=== PATIENT | female | born 1940 | race Caucasian/White ===

== ENCOUNTER 2016-10-23 | Outpatient (CLI) | payer MEDICARE, OTHER | END 2016-10-23 11:21 | disposition home or self-care (01) | DX: I48.91 Unspecified atrial fibrillation (principal) ==

== ENCOUNTER 2016-11-13 11:02 | Outpatient (CLI) | payer MEDICARE, OTHER | END 2016-11-13 11:03 | disposition home or self-care (01) | DX: I67.82 Cerebral ischemia (principal); G31.89 Other specified degenerative diseases of nervous system; R51 Headache ==

== ENCOUNTER 2016-11-14 09:52 | Outpatient (CLI) | payer MEDICARE, OTHER | END 2016-11-14 09:53 | disposition home or self-care (01) | DX: I48.91 Unspecified atrial fibrillation (principal) ==

== ENCOUNTER 2016-11-19 12:39 | Outpatient (CLI) | payer MEDICARE, OTHER | END 2016-11-19 12:40 | disposition home or self-care (01) | DX: M43.17 Spondylolisthesis, lumbosacral region (principal); M47.9 Spondylosis, unspecified ==

== ENCOUNTER 2016-12-02 14:55 | Outpatient (CLI) | payer MEDICARE, OTHER | END 2016-12-02 14:56 | disposition home or self-care (01) | DX: I48.91 Unspecified atrial fibrillation (principal) ==

== ENCOUNTER 2016-12-03 13:14 | Outpatient (CLI) | payer MEDICARE, OTHER | END 2016-12-03 13:15 | disposition home or self-care (01) | DX: R06.00 Dyspnea, unspecified (principal) ==

== ENCOUNTER 2017-01-12 10:47 | Outpatient (CLI) | payer MEDICARE, OTHER | END 2017-01-12 10:48 | disposition home or self-care (01) | DX: I48.91 Unspecified atrial fibrillation (principal) ==

== ENCOUNTER 2017-01-13 14:45 | Outpatient (CLI) | payer MEDICARE, OTHER | END 2017-01-13 14:46 | disposition home or self-care (01) | DX: R06.02 Shortness of breath (principal); R05 Cough; Z87.891 Personal history of nicotine dependence; Z01.818 Encounter for other preprocedural examination ==

== ENCOUNTER 2017-02-19 08:51 | Outpatient (CLI) | payer MEDICARE, OTHER | END 2017-02-19 08:52 | disposition home or self-care (01) | LOC: LAB.F 08:51 | PROVIDERS: ATTEND Family Medicine | DX: I48.91 Unspecified atrial fibrillation (principal) | CPT/HCPCS: 85610 ==

== ENCOUNTER 2017-03-11 09:37 | Outpatient (CLI) | payer MEDICARE, OTHER | END 2017-03-11 09:38 | disposition home or self-care (01) | LOC: LAB.F 09:37 | PROVIDERS: ATTEND Family Medicine | DX: I48.91 Unspecified atrial fibrillation (principal) | CPT/HCPCS: 85610 ==

== ENCOUNTER 2017-03-23 11:36 | Outpatient (CLI) | payer MEDICARE, OTHER ==
--- NOTE | 2017-03-23 13:16 | XRAY Report ---
THREE VIEW LUMBAR SPINE: 03/23/2017 CLINICAL INDICATION: Status post fusion, spondylolisthesis. COMPARISON: 11/19/2016. FINDINGS: AP, lateral, and coned down views of the lumbar spine demonstrate interval posterior jhon a nd pedicle screw fusion spanning from L4 to the iliac wings. Degenerative disk and facet disease appe ars stable. Anterolisthesis of L5 on S1 appears unchanged. Diskectomy changes are seen at L4-5 and L5 -S1. IMPRESSION: INTERVAL POSTERIOR JHON AND PEDICLE SCREW FUSION, WITH DISKECTOMY CHANGES. STABLE ALIGNME NT. JOB #: [id number] EXT JOB #:[id number]
== END 2017-03-23 11:37 | disposition home or self-care (01) ==
LOC: DI 11:36
PROVIDERS: ATTEND Student in an Organized Health Care Education/Training Program
DX: M51.36 Other intervertebral disc degeneration, lumbar region (principal); M47.896 Other spondylosis, lumbar region; M43.16 Spondylolisthesis, lumbar region; Z98.1 Arthrodesis status
CPT/HCPCS: 72100; 85610

== ENCOUNTER 2017-03-23 13:25 | Outpatient (CLI) | payer MEDICARE, OTHER | END 2017-03-23 13:26 | disposition home or self-care (01) | LOC: LAB.F 13:25 | PROVIDERS: ATTEND Family Medicine | DX: I48.91 Unspecified atrial fibrillation (principal) | CPT/HCPCS: 85610 ==

== ENCOUNTER 2017-04-24 12:40 | Outpatient (CLI) | payer MEDICARE, OTHER | END 2017-04-24 12:41 | disposition home or self-care (01) | LOC: LAB.F 12:40 | PROVIDERS: ATTEND Family Medicine | DX: I48.91 Unspecified atrial fibrillation (principal) | CPT/HCPCS: 85610 ==

== ENCOUNTER 2017-04-30 10:47 | Outpatient (CLI) | payer MEDICARE, OTHER ==
[2017-04-30 11:22] LABS: CREATININE 0.9 mg/dL (0.4-1.0)
[2017-04-30] MEDS ORDERED: IOPAMIDOL-300 100 ML VIAL IVP ONE (12:55)
--- NOTE | 2017-05-01 10:52 | CT Report ---
CHEST CT: 04/30/2017 CLINICAL HISTORY: A 76-year-old female with a recent abnormal chest x-ray. TECHNIQUE: Patient received 80 mL of Isovue-300 as contrast agent. A CAT scan of the chest was done at 5 x 5 mm intervals in axial, coronal, and sagittal reconstruction images. In accordance with CT protocol optimization, one or more of the following dose reduction techniques w ere utilized for this exam: automated exposure control, adjustment of mA and/or KV based on patient size, or use of iterative reconstructive technique. FINDINGS: Mediastinum shows a few small benign-appearing lymph nodes in the right paratracheal and a nterior carinal region. These each measure 7 mm or less in diameter. Normal cardiac size is seen with extensive mitral valve calcification. There is calcification noted in the left coronary artery, left anterior descending coronary artery, and right coronary artery. Axillary regions appear normal. Lungs demonstrate equivocal findings in regard to three small nodules in the right lung. There is a 0.5 cm potential nodule in the anterior segment of the right upper lobe. There are two potential add itional nodules in the lateral aspect of the lateral segment of the right middle lobe lying adjacent to one another and measuring 1.1 cm and 0.7 cm. Recommend patient be carefully followed with a repea t chest CT in six months to determine if any of these truly represent nodules. Adrenal glands appear normal. No abnormality is seen in the upper portion of the abdomen that is vis ualized. There are some surgical clips in the adelita hepatis related to a prior cholecystectomy. IMPRESSION: EQUIVOCAL FINDINGS ARE NOTED IN REGARD TO THREE SMALL NODULES IN THE RIGHT LUNG VARYING IN SIZE FROM 0.5 CM TO 1.1 CM. RECOMMEND PATIENT BE FOLLOWED WITH A REPEAT NONCONTRAST CHEST CT IN S IX MONTHS FOR FURTHER EVALUATION. JOB #: [id number] EXT JOB #:[id number]
== END 2017-04-30 10:48 | disposition home or self-care (01) ==
LOC: LAB 10:47
PROVIDERS: ATTEND Physician Assistant
DX: R91.8 Other nonspecific abnormal finding of lung field (principal)
CPT/HCPCS: 36415; 71260; 82565; Q9967

== ENCOUNTER 2017-05-19 12:59 | Outpatient (CLI) | payer MEDICARE, OTHER | END 2017-05-19 13:00 | disposition home or self-care (01) | LOC: LAB.F 12:59 | PROVIDERS: ATTEND Family Medicine | DX: I48.91 Unspecified atrial fibrillation (principal) | CPT/HCPCS: 85610 ==

== ENCOUNTER 2017-06-30 11:11 | Outpatient (CLI) | payer MEDICARE, OTHER | END 2017-06-30 11:12 | disposition home or self-care (01) | LOC: LAB 11:11 | PROVIDERS: ATTEND Family Medicine | DX: I48.91 Unspecified atrial fibrillation (principal) | CPT/HCPCS: 85610 ==

== ENCOUNTER 2017-06-30 11:26 | Outpatient (CLI) | payer MEDICARE, OTHER ==
--- NOTE | 2017-06-30 17:51 | XRAY Report ---
PELVIS AND LEFT HIP: 06/30/2017 HISTORY: Pain. COMPARISON: 02/21/2016 FINDINGS: Right total hip replacement. Status post lower lumbar and bilateral sacroiliac joint fusi on. Degenerative change in the left hip with joint space narrowing, subchondral sclerosis and cyst f ormation and minor spurring. No evidence of fracture, malalignment, or bone destruction. IMPRESSION: MODERATE LEFT HIP DEGENERATIVE CHANGE. STATUS POST RIGHT TOTAL HIP ARTHROPLASTY AND LOW ER LUMBAR FUSION. JOB #: [id number] EXT JOB #:[id number]
== END 2017-06-30 11:27 | disposition home or self-care (01) ==
LOC: DI 11:26
PROVIDERS: ATTEND Physician Assistant
DX: M25.552 Pain in left hip (principal); I48.91 Unspecified atrial fibrillation; Z96.641 Presence of right artificial hip joint; Z98.1 Arthrodesis status
CPT/HCPCS: 85610

== ENCOUNTER 2017-08-07 10:44 | Outpatient (CLI) | payer MEDICARE, OTHER | END 2017-08-07 10:45 | disposition home or self-care (01) | LOC: LAB.F 10:44 | PROVIDERS: ATTEND Family Medicine | DX: I48.91 Unspecified atrial fibrillation (principal) | CPT/HCPCS: 85610 ==

== ENCOUNTER 2017-08-20 09:17 | Outpatient (CLI) | payer MEDICARE, OTHER | END 2017-08-20 09:18 | disposition home or self-care (01) | LOC: RT 09:17 | PROVIDERS: ATTEND Internal Medicine Cardiovascular Disease | DX: I48.91 Unspecified atrial fibrillation (principal) | CPT/HCPCS: 93005 ==

== ENCOUNTER 2017-08-31 12:23 | Outpatient (CLI) | payer MEDICARE, OTHER ==
--- NOTE | 2017-09-01 12:27 | Mammography Report ---
DIGITAL SCREENING MAMMOGRAM: 08/31/2017 CLINICAL INDICATION: A 76-year-old for screening. COMPARISON: Films from [place], [place] dated 10/18/2013, 04/01/2012. TECHNIQUE: Routine CC and MLO projections were obtained of the breasts. FINDINGS: The breasts demonstrate scattered fibroglandular densities bilaterally. Intramammary lymp h nodes are stable. Coarse, typically benign calcifications are present. No suspicious masses, clus tered microcalcifications, or regions of architectural distortion are identified. IMPRESSION: BENIGN FINDINGS. RECOMMENDATION: Routine annual screening unless otherwise clinically indicated. BIRADS CATEGORY 2 - BENIGN FINDINGS. STANDARD QUALIFYING STATEMENTS 1. This examination was reviewed with the aid of Computer-Aided Detection (CAD). 2. A negative or benign imaging report should not delay biopsy if clinically suspicious findings are present. Consider surgical consultation if warranted. More than 5% of cancers are not identified by i maging. 3. Dense breasts may obscure an underlying neoplasm. JOB #: [id number] EXT JOB #:[id number]
== END 2017-08-31 12:24 | disposition home or self-care (01) ==
LOC: DI 12:23
PROVIDERS: ATTEND Physician Assistant
DX: Z12.31 Encounter for screening mammogram for malignant neoplasm of breast (principal)
CPT/HCPCS: 77067

== ENCOUNTER 2017-09-15 13:12 | Outpatient (CLI) | payer MEDICARE, OTHER | END 2017-09-15 13:13 | disposition home or self-care (01) | LOC: LAB.F 13:12 | PROVIDERS: ATTEND Family Medicine | DX: I48.91 Unspecified atrial fibrillation (principal) | CPT/HCPCS: 85610 ==

== ENCOUNTER 2017-09-30 14:13 | Outpatient (CLI) | payer MEDICARE, OTHER | END 2017-09-30 14:14 | disposition home or self-care (01) | LOC: LAB.F 14:13 | PROVIDERS: ATTEND Family Medicine | DX: I48.91 Unspecified atrial fibrillation (principal) | CPT/HCPCS: 85610 ==

== ENCOUNTER 2017-10-28 11:59 | Outpatient (CLI) | payer MEDICARE, OTHER ==
[2017-10-28 12:09] LABS: CREATININE 0.8 mg/dL (0.4-1.0)
--- NOTE | 2017-10-28 17:29 | CT Report ---
DATE OF SERVICE: 10/28/2017 CT CHEST WITHOUT CONTRAST: 10/28/2016 CLINICAL INDICATION: Followup right lung nodules. COMPARISON: 04/30/2017. TECHNIQUE: Axial CT images of the chest were obtained without intravenous contrast FINDINGS: The heart and great vessels again demonstrate atherosclerotic calcifications. No hilar or mediastinal lymphadenopathy is present. The previously noted nodules in the lateral right upper lobe are stable, with the largest measuring 10 mm maximal diameter. The left lung remains clear. No effusion or pneumothorax is present. Osseous structures demonstrate degenerative changes. Limited evaluation of upper abdominal structures demonstrates normal adrenal glands. IMPRESSION: STABLE RIGHT LUNG NODULES. CONSIDER EITHER A PET/CT TO EVALUATE FOR METABOLIC ACTIVITY, OR FOLLOWUP IN SIX MONTHS TO EVALUATE FOR INTERVAL CHANGE. In accordance with CT protocol optimization, one or more of the following dose reduction techniques were utilized for this exam: automated exposure control, adjustment of mA and/or KV based on patient size, or use of iterative reconstructive technique. TD: 10/28/2017 18:28
== END 2017-10-28 12:00 | disposition home or self-care (01) ==
LOC: DI 11:59
PROVIDERS: ATTEND Physician Assistant
DX: R91.8 Other nonspecific abnormal finding of lung field (principal); I48.91 Unspecified atrial fibrillation
CPT/HCPCS: 36415; 71250; 82565; 85610

== ENCOUNTER 2017-11-09 08:40 | Outpatient (CLI) | payer MEDICARE, OTHER ==
--- NOTE | 2017-11-09 16:10 | CT Report ---
DATE OF SERVICE: 11/09/2017 CT OF THE LUMBAR SPINE WITHOUT CONTRAST: 11/09/2017 CLINICAL INDICATION: Low back pain. COMPARISON: 02/21/2016 TECHNIQUE: Axial CT images of the lumbar spine were obtained without intravenous contrast. Sagittal and coronal reconstructions were performed. FINDINGS: There has been interval posterior bushra and pedicle screw fusion spanning from L4 through the sacroiliac joints bilaterally. Disk spacers are noted at L4-L5 and L5-S1. Anterolisthesis of L5 on S1 is stable. There is no evidence of interval fracture. No hardware complication is identified. The L1-L2, L2-L3, and L3-L4 disks demonstrate mild broad-based bulges, without significant spinal or foraminal narrowing. Postoperative changes are seen at L4-L5 and L5-S1. Screws also fuse the sacroiliac joints bilaterally. The visualized pelvic structures are unremarkable. IMPRESSION: POSTOPERATIVE CHANGES OF LOWER LUMBOSACRAL FUSION. STABLE ALIGNMENT. NO EVIDENCE OF INTERVAL FRACTURE OR HARDWARE COMPLICATION. TD: 11/09/2017 17:09 [facility]
== END 2017-11-09 08:41 | disposition home or self-care (01) ==
LOC: DI 08:40
PROVIDERS: ATTEND Student in an Organized Health Care Education/Training Program
DX: M54.40 Lumbago with sciatica, unspecified side (principal); Z98.1 Arthrodesis status
CPT/HCPCS: 72131

== ENCOUNTER 2017-11-30 12:49 | Outpatient (CLI) | payer MEDICARE, OTHER | END 2017-11-30 12:50 | disposition home or self-care (01) | LOC: LAB.F 12:49 | PROVIDERS: ATTEND Family Medicine | DX: I48.91 Unspecified atrial fibrillation (principal) | CPT/HCPCS: 85610 ==

== ENCOUNTER 2017-12-30 08:00 | Outpatient (CLI) | payer MEDICARE, OTHER | END 2017-12-30 08:01 | LOC: LAB.F 08:00 | PROVIDERS: ATTEND Family Medicine | DX: I48.91 Unspecified atrial fibrillation (principal) | CPT/HCPCS: 85610 ==

== ENCOUNTER 2018-01-13 13:29 | Outpatient (CLI) | payer MEDICARE, OTHER | END 2018-01-13 13:30 | disposition home or self-care (01) | LOC: LAB.F 13:29 | PROVIDERS: ATTEND Family Medicine | DX: I48.91 Unspecified atrial fibrillation (principal) | CPT/HCPCS: 85610 ==

== ENCOUNTER 2018-01-19 10:44 | Outpatient (CLI) | payer MEDICARE, OTHER | END 2018-01-19 10:45 | disposition home or self-care (01) | LOC: LAB.F 10:44 | PROVIDERS: ATTEND Family Medicine | DX: I48.91 Unspecified atrial fibrillation (principal) | CPT/HCPCS: 85610 ==

== ENCOUNTER 2018-01-25 13:02 | Outpatient (CLI) | payer MEDICARE, OTHER | END 2018-01-25 13:03 | disposition home or self-care (01) | LOC: LAB.F 13:02 | PROVIDERS: ATTEND Family Medicine | DX: I48.91 Unspecified atrial fibrillation (principal) | CPT/HCPCS: 85610 ==

== ENCOUNTER 2018-02-04 14:16 | Outpatient (CLI) | payer MEDICARE, OTHER | END 2018-02-04 14:17 | disposition home or self-care (01) | LOC: LAB.F 14:16 | PROVIDERS: ATTEND Family Medicine | DX: I48.91 Unspecified atrial fibrillation (principal) | CPT/HCPCS: 85610 ==

== ENCOUNTER 2018-02-17 13:27 | Outpatient (CLI) | payer MEDICARE, OTHER | END 2018-02-17 13:28 | disposition home or self-care (01) | LOC: LAB.F 13:27 | PROVIDERS: ATTEND Family Medicine | DX: I48.91 Unspecified atrial fibrillation (principal) | CPT/HCPCS: 85610 ==

== ENCOUNTER 2018-02-26 09:13 | Outpatient (CLI) | payer MEDICARE, OTHER | END 2018-02-26 09:14 | disposition home or self-care (01) | LOC: LAB.F 09:13 | PROVIDERS: ATTEND Family Medicine | DX: I48.91 Unspecified atrial fibrillation (principal) | CPT/HCPCS: 85610 ==

== ENCOUNTER 2018-03-10 13:11 | Outpatient (CLI) | payer MEDICARE, OTHER | END 2018-03-10 13:12 | disposition home or self-care (01) | LOC: LAB.F 13:11 | PROVIDERS: ATTEND Family Medicine | DX: I48.91 Unspecified atrial fibrillation (principal) | CPT/HCPCS: 85610 ==

== ENCOUNTER 2018-03-24 11:06 | Outpatient (CLI) | payer MEDICARE, OTHER | END 2018-03-24 11:07 | disposition home or self-care (01) | LOC: LAB.F 11:06 | PROVIDERS: ATTEND Family Medicine | DX: I48.91 Unspecified atrial fibrillation (principal) | CPT/HCPCS: 85610 ==

== ENCOUNTER 2018-03-25 13:39 | Outpatient (CLI) | payer MEDICARE, OTHER | END 2018-03-25 13:40 | disposition home or self-care (01) | LOC: RT 13:39 | PROVIDERS: ATTEND Internal Medicine Cardiovascular Disease | DX: I48.0 Paroxysmal atrial fibrillation (principal) | CPT/HCPCS: 93005 ==

== ENCOUNTER 2018-04-21 11:29 | Outpatient (CLI) | payer MEDICARE, OTHER | END 2018-04-21 11:30 | disposition home or self-care (01) | LOC: LAB.F 11:29 | PROVIDERS: ATTEND Family Medicine | DX: I48.91 Unspecified atrial fibrillation (principal) | CPT/HCPCS: 85610 ==

== ENCOUNTER 2018-04-22 11:24 | Outpatient (CLI) | payer MEDICARE, OTHER ==
--- NOTE | 2018-04-22 15:24 | CT Report ---
Procedure Date: 04/22/2018 Accession Number: [id number] / [id number] Procedure: CT - Chest W/O CPT Code: FULL RESULT: EXAM: Chest W/O DATE: 04/22/2018 11:37 AM CLINICAL HISTORY: ABNORMAL CHEST CT, PULMONARY NODULES COMPARISON: CT of the chest 10/28/2017. TECHNIQUE: Routine helical CT imaging was performed through the chest. IV contrast: None. Reconstructions: Coronal and sagittal. In accordance with CT protocol optimization, one or more of the following dose reduction techniques were utilized for this exam: automated exposure control, adjustment of mA and/or KV based on patient size, or use of iterative reconstructive technique. FINDINGS: Lungs/Pleura: The index nodule in the right upper lobe has increased to 1.5 cm (previously 1 cm in October 2017) on image 27. Left lung remains clear. There is no pleural effusion or pneumothorax. Mediastinum: Normal. No adenopathy or masses. Stable right atrial calcification, possibly prior thrombus. Coronary artery and great vessel calcifications. Bones: Unremarkable. Visualized Abdomen: Status post cholecystectomy, otherwise unremarkable. Other: None. IMPRESSION: Interval enlargement of the right lung nodule to 1.5 cm. Tissue diagnosis by image guided biopsy versus PET CT examination are recommended. RADIA
== END 2018-04-22 11:25 | disposition home or self-care (01) ==
LOC: DI 11:24
PROVIDERS: ATTEND Physician Assistant
DX: R91.1 Solitary pulmonary nodule (principal); R93.8 Abnormal findings on diagnostic imaging of other specified body structures; J98.4 Other disorders of lung
CPT/HCPCS: 71250

== ENCOUNTER 2018-05-19 11:14 | Outpatient (CLI) | payer MEDICARE, OTHER | END 2018-05-19 11:15 | disposition home or self-care (01) | LOC: LAB.F 11:14 | PROVIDERS: ATTEND Family Medicine | DX: I48.91 Unspecified atrial fibrillation (principal) | CPT/HCPCS: 85610 ==

== ENCOUNTER 2018-06-17 14:53 | Outpatient (CLI) | payer MEDICARE, OTHER | END 2018-06-17 14:54 | disposition home or self-care (01) | LOC: LAB.F 14:53 | PROVIDERS: ATTEND Family Medicine | DX: I48.91 Unspecified atrial fibrillation (principal) | CPT/HCPCS: 85610 ==

== ENCOUNTER 2018-07-21 11:10 | Outpatient (CLI) | payer MEDICARE, OTHER | END 2018-07-21 11:11 | disposition home or self-care (01) | LOC: LAB.F 11:10 | PROVIDERS: ATTEND Family Medicine | DX: I48.91 Unspecified atrial fibrillation (principal) | CPT/HCPCS: 85610 ==

== ENCOUNTER 2018-09-08 11:35 | Outpatient (CLI) | payer MEDICARE, OTHER ==
--- NOTE | 2018-09-08 14:52 | CT Report ---
Reason: PULMONARY NODULE Procedure Date: 09/08/2018 Accession Number: [id number] / [id number] Procedure: CT - Chest W/O CPT Code: FULL RESULT: EXAM: CT CHEST EXAM DATE: 09/08/2018 12:02 PM. CLINICAL HISTORY: PULMONARY NODULE. COMPARISONS: CHEST W/O 04/22/2018 11:34 AM. TECHNIQUE: Routine helical CT imaging was performed through the chest. IV contrast: None. Reconstructions: Coronal and sagittal. In accordance with CT protocol optimization, one or more of the following dose reduction techniques were utilized for this exam: automated exposure control, adjustment of mA and/or KV based on patient size, or use of iterative reconstructive technique. FINDINGS: Lungs/Pleura: The right upper lobe index nodule is now found on images 28 through 31 of series 3 and is essentially unchanged at 1.6 x 0.7 cm when measured coronally on image 32. No new suspicious nodules, bronchial thickening, consolidation, or edema. Pulmonary vasculature is normal. No pericardial or pleural effusion. No pneumothorax. Mediastinum: Calcification of the aortic arch, coronary arteries and mitral annular region. No adenopathy or masses. The heart and great vessels are otherwise normal. Bones: Unremarkable. Visualized Abdomen: Unremarkable. Other: None. IMPRESSION: The right upper lobe pulmonary nodule persists and remains suspicious, similar in appearance to April. The recommendation for tissue diagnosis stands. GIANLUCA The above findings of a persistent right lung suspicious lung nodule were discussed with Pati Kemp by Dr. Geronimo Mandujano at 14:50 hrs on 09/08/18.
== END 2018-09-08 11:36 | disposition home or self-care (01) ==
LOC: LAB 11:35 → DI 11:36
PROVIDERS: ATTEND Physician Assistant
DX: R91.1 Solitary pulmonary nodule (principal)
CPT/HCPCS: 71250

== ENCOUNTER 2018-09-09 14:34 | Outpatient (CLI) | payer MEDICARE, OTHER | END 2018-09-09 14:35 | disposition home or self-care (01) | LOC: LAB.F 14:34 | PROVIDERS: ATTEND Family Medicine | DX: I48.91 Unspecified atrial fibrillation (principal) | CPT/HCPCS: 85610 ==

== ENCOUNTER 2018-10-29 13:22 | Outpatient (CLI) | payer MEDICARE, OTHER | END 2018-10-29 13:23 | disposition home or self-care (01) | LOC: LAB.F 13:22 | PROVIDERS: ATTEND Family Medicine | DX: I48.91 Unspecified atrial fibrillation (principal) | CPT/HCPCS: 85610 ==

== ENCOUNTER 2018-11-05 13:15 | Outpatient (CLI) | payer MEDICARE, OTHER ==
[2018-11-05] MEDS ORDERED: REGADENOSON 0.4 MG/5 ML SYRINGE IVP ONE ×2 (15:11→16:28)
--- NOTE | 2018-11-05 16:14 | CARDIAC PROCEDURE NOTE ---
DATE OF SERVICE: 11/05/2018 Physician: Ileana Nation MD, [facility] INDICATIONS: Dyspnea on exertion. CARDIAC RISK FACTORS: Postmenopausal status, elevated cholesterol, obesity, family history of heart disease, remote ex-smoker (quit over 30 years ago). PROCEDURE: After signing informed consent, the patient underwent a Lexiscan pharmaceutical stress test with nuclear myocardial perfusion imaging. RESTING HEART RATE: 76. Peak heart rate: 92. Resting blood pressure 132/78. Peak blood pressure 128/84. The patient underwent Lexiscan infusion. She developed very brief flushing and brief, but significant shortness of breath; she asked to sit straight up, from a semi-reclining position. There was no chest pain. There was no wheezing. Oxygen saturation was 96% on room air during the test. RESTING EKG: Normal sinus rhythm, left atrial enlargement, early R/S transition. EKG AT [facility]: 0.[address] segment depression in leads I, II, V4 through V6. SUMMARY 1. Abnormal EKG at rest, suggesting cor pulmonale. 2. Borderline ischemic changes by EKG criteria on this pharmaceutical stress test. 3. Nuclear images reported separately. cc: Constantine Swann M.D. TD: 11/05/2018 16:03 [facility]
--- NOTE | 2018-11-08 08:09 | Nuclear Medicine Report ---
Reason: BRO Procedure Date: 11/05/2018 Accession Number: [id number] / [id number] Procedure: NM - Myocardial Perfusion STR/RST CPT Code: FULL RESULT: EXAM: SINGLE-ISOTOPE PHARMACOLOGICAL STRESS TEST WITH REGADENOSON. SINGLE-ISOTOPE AND ONE-DAY REST/STRESS MYOCARDIAL PERFUSION SCANS WITH TOMOGRAPHIC IMAGING, QUANTITATIVE ANALYSIS, WALL MOTION ANALYSIS AND CALCULATION OF EJECTION FRACTION. EXAM DATE: 11/05/2018 06:10 PM. CLINICAL HISTORY: Dyspnea on exertion. COMPARISON: None available. TECHNIQUE: After the intravenous administration of 9.5 mCi of Tc-99m sestamibi, a rest myocardial perfusion scan was done with tomography. Motion correction was applied when appropriate. After an appropriate delay, pharmacological stress was performed with the infusion of 0.4 mg regadenoson per protocol. According to protocol, 44 mCi of Tc-99m sestamibi was injected for stress myocardial perfusion scan. Motion correction was applied when appropriate. Gated tomographic images were obtained for wall motion analysis and computation of left ventricular ejection fraction. FINDINGS: There is a small mild reversible defect in the anterior apex. There is a small mild fixed defect in the proximal to mid inferolateral wall. Computer analysis. Summed stress score 7 Summed rest score 4 Summed difference score 3 Wall motion analysis demonstrates no focal wall motion abnormality. The left ventricular end-diastolic volume is 42 cc. The left ventricular end-systolic volume is 4 cc. The left ventricular ejection fraction is calculated to be 90%. IMPRESSION: 1. Small mild reversible defect in the anterior apex. Small mild fixed defect in the proximal to mid inferolateral wall. 2. Left ventricular ejection fraction of >65%. 3. Normal segmental and global wall motion. 4. Normal left ventricular cavity size, no change with stress. 5. Based on computer analysis, mildly abnormal study with mild ischemia. RADIA
== END 2018-11-05 13:16 | disposition home or self-care (01) ==
LOC: DI 13:15
PROVIDERS: ATTEND Internal Medicine Cardiovascular Disease
DX: I25.9 Chronic ischemic heart disease, unspecified (principal); R94.31 Abnormal electrocardiogram [ECG] [EKG]; E78.00 Pure hypercholesterolemia, unspecified; Z78.0 Asymptomatic menopausal state; E66.9 Obesity, unspecified; Z82.49 Family history of ischemic heart disease and other diseases of the circulatory system
CPT/HCPCS: 78452; 93017; A9500; J2785

== ENCOUNTER 2018-12-22 12:03 | Outpatient (CLI) | payer MEDICARE, OTHER | END 2018-12-22 23:59 | disposition home or self-care (01) | LOC: LAB.F 12:03 | PROVIDERS: ATTEND Family Medicine | DX: I48.91 Unspecified atrial fibrillation (principal) | CPT/HCPCS: 85610 ==

== ENCOUNTER 2019-01-06 11:47 | Outpatient (CLI) | payer MEDICARE, OTHER ==
--- NOTE | 2019-01-06 14:17 | CT Report ---
Reason: SOLITARY PULMONARY NODULE Procedure Date: 01/06/2019 Accession Number: [id number] / [id number] Procedure: CT - CHEST WO CPT Code: FULL RESULT: EXAM: CT CHEST EXAM DATE: 01/06/2019 12:12 PM. CLINICAL HISTORY: SOLITARY PULMONARY NODULE. COMPARISONS: CHEST W/O 09/08/2018 11:47 AM. TECHNIQUE: Routine helical CT imaging was performed through the chest. IV contrast: None. Reconstructions: Coronal and sagittal. In accordance with CT protocol optimization, one or more of the following dose reduction techniques were utilized for this exam: automated exposure control, adjustment of mA and/or KV based on patient size, or use of iterative reconstructive technique. FINDINGS: Lungs/Pleura: The known right upper lobe nodule is now seen on images 26 through 30 of series 4. Remeasuring the nodule coronally on similar fashion to the previous study, the nodule measures 1.9 x 1.0 cm on image 33 series 6. A few sub-3 mm nodules and tree-in-bud opacities have developed in the left lung apex in the interval, example image 17 series 4. This is more likely to represent an infectious or inflammatory process given appearance and timeframe. Mediastinum: Calcification of the aortic arch as well as severe coronary calcifications and calcification of the mitral annulus appears similar to prior. Mediastinal lymph nodes do not meet size criteria. A 1.1 cm cluster of right hilar nodes is prominent. Bones: Unremarkable. Visualized Abdomen: Prior cholecystectomy. Other: None. IMPRESSION: Persistence of the suspicious right lung nodule with measurements as described. Prominent right hilar nodes which individually do not meet size criteria. RADIA
== END 2019-01-06 11:48 | disposition home or self-care (01) ==
LOC: DI 11:47
PROVIDERS: ATTEND Physician Assistant
DX: R91.1 Solitary pulmonary nodule (principal)
CPT/HCPCS: 71250

== ENCOUNTER 2019-01-31 11:22 | Outpatient (CLI) | payer MEDICARE, OTHER | END 2019-01-31 11:23 | disposition home or self-care (01) | LOC: LAB.F 11:22 | PROVIDERS: ATTEND Family Medicine | DX: I48.91 Unspecified atrial fibrillation (principal) | CPT/HCPCS: 85610 ==

== ENCOUNTER 2019-02-25 13:00 | Outpatient (CLI) | payer MEDICARE, OTHER | END 2019-02-25 13:01 | disposition home or self-care (01) | LOC: LAB.F 13:00 | PROVIDERS: ATTEND Family Medicine | DX: I48.91 Unspecified atrial fibrillation (principal) | CPT/HCPCS: 85610 ==

== ENCOUNTER 2019-03-29 13:15 | Outpatient (CLI) | payer MEDICARE, OTHER | END 2019-03-29 13:16 | disposition home or self-care (01) | LOC: LAB.F 13:15 | PROVIDERS: ATTEND Family Medicine | DX: I48.91 Unspecified atrial fibrillation (principal) | CPT/HCPCS: 85610 ==

== ENCOUNTER 2019-05-10 12:57 | Outpatient (CLI) | payer MEDICARE, OTHER | END 2019-05-10 12:58 | disposition home or self-care (01) | LOC: LAB.S 12:57 | PROVIDERS: ATTEND Family Medicine | DX: I48.91 Unspecified atrial fibrillation (principal) | CPT/HCPCS: 85610 ==

== ENCOUNTER 2019-06-16 12:27 | Outpatient (CLI) | payer MEDICARE, OTHER | END 2019-06-16 12:28 | disposition home or self-care (01) | LOC: LAB.S 12:27 | PROVIDERS: ATTEND Family Medicine | DX: I48.91 Unspecified atrial fibrillation (principal) | CPT/HCPCS: 85610 ==

== ENCOUNTER 2019-08-04 14:06 | Outpatient (CLI) | payer MEDICARE, OTHER | END 2019-08-04 14:07 | disposition home or self-care (01) | LOC: LAB.S 14:06 | PROVIDERS: ATTEND Family Medicine | DX: I48.91 Unspecified atrial fibrillation (principal) | CPT/HCPCS: 85610 ==

== ENCOUNTER 2019-10-16 12:08 | Outpatient (CLI) | payer MEDICARE ==
[2019-10-16 13:08] LABS: BASOPHILS # (AUTO) 0.1 10^3/uL (0.0-0.1); BASOPHILS % (AUTO) 0.6 %; EOSINOPHILS # (AUTO) 0.2 10^3/uL (0.0-0.7); EOSINOPHILS % (AUTO) 1.4 %; HGB - HEMOGLOBIN 14.5 g/dL (12.0-16.0); LYMPHOCYTES # (AUTO) 2.3 10^3/uL (1.5-3.5); LYMPHOCYTES % (AUTO) 21.7 %; MEAN CORPUSCULAR HEMOGLOBIN 29.4 pg (27.0-31.0); MEAN CORPUSCULAR HGB CONC 32.4 g/dL (32.0-36.0); MEAN CORPUSCULAR VOLUME 90.7 fL (81.0-99.0); MEAN PLATELET VOLUME 9.9 fL (7.9-10.8); MONOCYTES # (AUTO) 0.7 10^3/uL (0.0-1.0); MONOCYTES % (AUTO) 6.4 %; NEUTROPHILS # (AUTO) 7.5 10^3/uL (1.5-6.6); NEUTROPHILS % (AUTO) 69.3 %; PLT - PLATELET COUNT 630 10^3/uL (130-450); RED BLOOD COUNT 4.93 10^6/uL (4.20-5.40); RED CELL DISTRIBUTION WIDTH 12.8 % (12.0-15.0); WHITE BLOOD COUNT 10.8 x10^3/uL (4.8-10.8)
[2019-10-16 13:26] LABS: ALBUMIN 3.5 g/dL (3.2-5.5); ALBUMIN/GLOBULIN RATIO 0.9 (1.0-2.2); BILIRUBIN,TOTAL 0.6 mg/dL (0.2-1.0); CALCIUM 9.3 mg/dL (8.5-10.3); CREATININE 0.9 mg/dL (0.4-1.0); CRP - C-REACTIVE PROTEIN 2.9 mg/dL (0-1.0); TOTAL PROTEIN 7.6 g/dL (6.7-8.2)
[2019-10-16 13:38] LABS: THYROID STIMULATING HORMONE 6.49 uIU/mL (0.34-5.60)
[2019-10-16 13:40] LABS: FREE T4 (FREE THYROXINE) 1.2 ng/dL (0.58-1.64)
--- NOTE | 2019-10-16 16:26 | XRAY Report ---
Reason: CHRONIC LBP Procedure Date: 10/16/2019 Accession Number: [id number] / [id number] Procedure: XR - Lumbar Spine Complete CPT Code: Final Report FULL RESULT: EXAM: LUMBOSACRAL SPINE RADIOGRAPHY EXAM DATE: 10/16/2019 12:45 PM. CLINICAL HISTORY: Chronic low back pain. COMPARISONS: LUMBAR SPINE 2 VIEW 03/23/2017 11:49 AM LUMBAR SPINE W/O 11/09/2017 8:53 AM. TECHNIQUE: 5 views. FINDINGS: Alignment: Anterolisthesis of L5 on S1 measures approximately 1.6 cm, similar compared to prior. Status post posterior fusion of L4 through the sacrum and across the sacroiliac joints and interbody fusion of L4-L5 and L5-S1. The hardware appears intact. Bones: Five [id number] lumbar vertebral bodies are present. The bones appear intact without evidence of a fracture. Disks: Mild intervertebral disk space narrowing at the levels not fused. Facets: No degenerative changes. Sacroiliac Joints: There are screws across the sacroiliac joints without complete bone fusion. Soft Tissues: Cholecystectomy clips are present. Atherosclerotic calcifications are present in the aorta. IMPRESSION: 1. There is grade 2 anterolisthesis of L5 on S1. Similar compared to prior with multilevel fusion of the lumbar spine to the sacrum. Hardware appears intact. 2. Mild degenerative disk disease at the levels not fused. RADIA
[2019-10-17 11:18] LABS: HEMOGLOBIN A1C 0.83 g/dL; HEMOGLOBIN A1C % 7.2 % (4.6-6.2)
== END 2019-10-16 12:09 | disposition home or self-care (01) ==
LOC: DI 12:08
PROVIDERS: ATTEND Physician Assistant
DX: M51.36 Other intervertebral disc degeneration, lumbar region (principal); M43.17 Spondylolisthesis, lumbosacral region; Z98.1 Arthrodesis status; M62.81 Muscle weakness (generalized); R73.9 Hyperglycemia, unspecified; E03.9 Hypothyroidism, unspecified; I10 Essential (primary) hypertension; R53.83 Other fatigue
CPT/HCPCS: 36415; 72110; 80053; 82550; 83036; 84439; 84443; 85025; 85651; 86140

== ENCOUNTER 2019-11-07 11:29 | Outpatient (CLI) | payer MEDICARE | END 2019-11-07 11:30 | disposition home or self-care (01) | LOC: LAB.S 11:29 | PROVIDERS: ATTEND Family Medicine | DX: I48.91 Unspecified atrial fibrillation (principal) | CPT/HCPCS: 85610 ==

== ENCOUNTER 2020-02-13 11:06 | Outpatient (CLI) | payer MEDICARE | END 2020-02-13 11:07 | disposition home or self-care (01) | LOC: LAB 11:06 | PROVIDERS: ATTEND Family Medicine | DX: I48.91 Unspecified atrial fibrillation (principal) | CPT/HCPCS: 85610 ==

== ENCOUNTER 2020-03-28 10:32 | Outpatient (CLI) | payer MEDICARE | END 2020-03-28 10:33 | disposition home or self-care (01) | LOC: LAB.S 10:32 | PROVIDERS: ATTEND Family Medicine | DX: I48.91 Unspecified atrial fibrillation (principal) | CPT/HCPCS: 85610 ==

== ENCOUNTER 2020-04-11 12:18 | Outpatient (CLI) | payer MEDICARE | END 2020-04-11 12:19 | disposition home or self-care (01) | LOC: LAB.S 12:18 | PROVIDERS: ATTEND Family Medicine | DX: I48.91 Unspecified atrial fibrillation (principal) | CPT/HCPCS: 85610 ==

== ENCOUNTER 2020-04-27 11:01 | Outpatient (CLI) | payer MEDICARE | END 2020-04-27 11:02 | disposition home or self-care (01) | LOC: LAB.S 11:01 | PROVIDERS: ATTEND Family Medicine | DX: I48.91 Unspecified atrial fibrillation (principal) | CPT/HCPCS: 85610 ==

== ENCOUNTER 2020-05-24 09:57 | Outpatient (CLI) | payer MEDICARE | END 2020-05-24 09:58 | disposition home or self-care (01) | LOC: LAB.S 09:57 | PROVIDERS: ATTEND Family Medicine | DX: I48.91 Unspecified atrial fibrillation (principal) | CPT/HCPCS: 85610 ==

== ENCOUNTER 2020-06-27 12:44 | Outpatient (CLI) | payer MEDICARE | END 2020-06-27 12:45 | disposition home or self-care (01) | LOC: LAB.S 12:44 | PROVIDERS: ATTEND Family Medicine | DX: I48.91 Unspecified atrial fibrillation (principal) | CPT/HCPCS: 85610 ==

== ENCOUNTER 2020-07-12 12:11 | Outpatient (CLI) | payer MEDICARE ==
--- NOTE | 2020-07-17 06:46 | CT Report ---
PROCEDURE: CHEST WO INDICATIONS: SOLITARY PULMONARY NODULE TECHNIQUE: Noncontrast 5 mm thick sections acquired from the pulmonary apices to the posterior costophrenic angl es. 7 mm thick coronal and sagittal MIP reformats were then acquired. For radiation dose reduction, the following was used: automated exposure control, adjustment of mA and/or kV according to patient size. COMPARISON: 01/06/2019 and 04/22/[address] chest evaluation. Also, 10/28/[address] ev aluation reviewed. FINDINGS: Image quality: Excellent. Lungs and pleura: No acute air space opacities. The area of prior CT concern at the lateral aspect of the posterior aspect of the right upper lobe extending to the pleural surface is stable over time from October 28, 2017. This appears to represent alveolar scarring perhaps related to some prior infl ammatory event in that area. No abnormality is developed. No pleural effusions or pneumothorax. Cent ral and peripheral airways are patent and normal in caliber. Mediastinum: Heart size is normal. No pericardial effusion. No mediastinal adenopathy by size crit eria. Thoracic aorta and central pulmonary arteries are stable in size with maximal axial dimension of the ascending aorta 4.0 cm.. Esophagus is normal in caliber. No hiatal hernia. Bones and chest wall: No suspicious bony lesions. No vertebral body compression fractures. No axil monse or supraclavicular adenopathy by size criteria. The thyroid is normal in size. Abdomen: Visualized upper abdominal solid organs and bowel loops appear normal in the absence of con trast. IMPRESSION: Focal alveolar scarring lateral right upper lobe near the major fissure, with no evidence of change o dania time from October 2017. No new nodule has developed elsewhere the indicate presence of early josé festation of lung carcinoma. No follow-up is recommended given the extended follow-up available for t his area of prior concern. Reviewed by: Terrance Bowen MD on 07/16/2020 3:36 PM PDT Approved by: Terrance Bowen MD on 07/16/2020 3:36 PM PDT Station ID: [id number]
== END 2020-07-12 12:12 | disposition home or self-care (01) ==
LOC: DI 12:11
PROVIDERS: ATTEND Registered Nurse
DX: R91.1 Solitary pulmonary nodule (principal); M48.07 Spinal stenosis, lumbosacral region; M43.17 Spondylolisthesis, lumbosacral region; Z98.1 Arthrodesis status
CPT/HCPCS: 71250; 72148

== ENCOUNTER 2020-08-08 10:39 | Outpatient (CLI) | payer MEDICARE | END 2020-08-08 10:40 | disposition home or self-care (01) | LOC: LAB.S 10:39 | PROVIDERS: ATTEND Family Medicine | DX: I48.91 Unspecified atrial fibrillation (principal) | CPT/HCPCS: 85610 ==

== ENCOUNTER 2020-09-20 11:39 | Outpatient (CLI) | payer MEDICARE | END 2020-09-20 11:40 | disposition home or self-care (01) | LOC: RT 11:39 | PROVIDERS: ATTEND Internal Medicine Cardiovascular Disease | DX: I48.91 Unspecified atrial fibrillation (principal); Z79.899 Other long term (current) drug therapy | CPT/HCPCS: 93005 ==

== ENCOUNTER 2020-09-21 11:20 | Outpatient (CLI) | payer MEDICARE ==
[2020-09-21 15:33] LABS: BASOPHILS # (AUTO) 0.1 10^3/uL (0.0-0.1); BASOPHILS % (AUTO) 0.8 %; EOSINOPHILS # (AUTO) 0.2 10^3/uL (0.0-0.7); EOSINOPHILS % (AUTO) 2.4 %; HGB - HEMOGLOBIN 14.7 g/dL (12.0-16.0); LYMPHOCYTES # (AUTO) 3.2 10^3/uL (1.5-3.5); LYMPHOCYTES % (AUTO) 35.3 %; MEAN CORPUSCULAR HEMOGLOBIN 29.6 pg (27.0-31.0); MEAN CORPUSCULAR HGB CONC 31.9 g/dL (32.0-36.0); MEAN CORPUSCULAR VOLUME 92.9 fL (81.0-99.0); MEAN PLATELET VOLUME 12.2 fL (7.9-10.8); MONOCYTES # (AUTO) 0.6 10^3/uL (0.0-1.0); MONOCYTES % (AUTO) 6.4 %; NEUTROPHILS % (AUTO) 54.9 %; PLT - PLATELET COUNT 369 10^3/uL (130-450); RED BLOOD COUNT 4.96 10^6/uL (4.20-5.40); RED CELL DISTRIBUTION WIDTH 13.7 % (12.0-15.0)
[2020-09-21 15:54] LABS: CALCIUM 9.6 mg/dL (8.5-10.3); CREATININE 0.7 mg/dL (0.4-1.0)
== END 2020-09-21 11:21 | disposition home or self-care (01) ==
LOC: LAB.S 11:20
PROVIDERS: ATTEND Internal Medicine Cardiovascular Disease
DX: I48.91 Unspecified atrial fibrillation (principal)
CPT/HCPCS: 36415; 80048; 85025; 85610

== ENCOUNTER 2020-11-08 12:15 | Outpatient (CLI) | payer MEDICARE, OTHER | END 2020-11-08 12:16 | disposition home or self-care (01) | LOC: LAB.S 12:15 | PROVIDERS: ATTEND Family Medicine | DX: I48.91 Unspecified atrial fibrillation (principal) | CPT/HCPCS: 85610 ==

== ENCOUNTER 2020-12-06 11:28 | Outpatient (CLI) | payer OTHER, MEDICARE | END 2020-12-06 11:29 | disposition home or self-care (01) | LOC: LAB.S 11:28 | PROVIDERS: ATTEND Family Medicine | DX: I48.91 Unspecified atrial fibrillation (principal) | CPT/HCPCS: 85610 ==

== ENCOUNTER 2021-01-11 12:05 | Outpatient (CLI) | payer MEDICARE, OTHER | END 2021-01-11 12:06 | disposition home or self-care (01) | LOC: LAB.S 12:05 | PROVIDERS: ATTEND Family Medicine | DX: I48.91 Unspecified atrial fibrillation (principal) | CPT/HCPCS: 85610 ==

== ENCOUNTER 2021-02-18 11:19 | Outpatient (CLI) | payer MEDICARE, OTHER | END 2021-02-18 11:20 | disposition home or self-care (01) | LOC: LAB.S 11:19 | PROVIDERS: ATTEND Family Medicine | DX: I48.91 Unspecified atrial fibrillation (principal) | CPT/HCPCS: 36416; 85610 ==

== ENCOUNTER 2021-02-28 10:33 | Outpatient (CLI) | payer MEDICARE, OTHER | END 2021-02-28 10:34 | disposition home or self-care (01) | LOC: LAB.S 10:33 | PROVIDERS: ATTEND Family Medicine | DX: I48.91 Unspecified atrial fibrillation (principal) | CPT/HCPCS: 36416; 85610 ==

== ENCOUNTER 2021-04-15 10:41 | Outpatient (CLI) | payer OTHER, MEDICARE | END 2021-04-15 10:42 | disposition home or self-care (01) | LOC: LAB.S 10:41 | PROVIDERS: ATTEND Family Medicine | DX: I48.91 Unspecified atrial fibrillation (principal) | CPT/HCPCS: 36416; 85610 ==

== ENCOUNTER 2021-05-15 10:45 | Outpatient (CLI) | payer OTHER, MEDICARE | END 2021-05-15 10:46 | disposition home or self-care (01) | LOC: LAB.S 10:45 | PROVIDERS: ATTEND Family Medicine | DX: I48.91 Unspecified atrial fibrillation (principal) | CPT/HCPCS: 36416; 85610 ==

== ENCOUNTER 2021-06-19 11:27 | Outpatient (CLI) | payer OTHER, MEDICARE ==
[2021-06-19 15:44] LABS: CHOL/HDL RATIO 10.4 (<4.4); CHOLESTEROL 259 mg/dL; HDL CHOLESTEROL 25 mg/dL; LDL CHOLESTEROL,CALCULATED 182 mg/dL; LDL/HDL RATIO 7.3 (<4.4); TRIGLYCERIDES 262 mg/dL; VLDL CHOLESTEROL 52 mg/dL
[2021-06-19 20:31] LABS: ESTIMATED AVERAGE GLUCOSE 151 mg/dL (70-100); HEMOGLOBIN A1c% 6.9 % (4.27-6.07)
== END 2021-06-19 23:59 | disposition home or self-care (01) ==
LOC: LAB.S 11:27
PROVIDERS: ATTEND Registered Nurse
DX: E11.29 Type 2 diabetes mellitus with other diabetic kidney complication (principal); E78.5 Hyperlipidemia, unspecified; I48.91 Unspecified atrial fibrillation
CPT/HCPCS: 36415; 80061; 83036; 83721; 85610

== ENCOUNTER 2021-07-19 10:49 | Outpatient (CLI) | payer OTHER, MEDICARE | END 2021-07-19 10:50 | disposition home or self-care (01) | LOC: LAB.S 10:49 | PROVIDERS: ATTEND Family Medicine | DX: I48.91 Unspecified atrial fibrillation (principal) | CPT/HCPCS: 36416; 85610 ==

== ENCOUNTER 2021-07-29 11:21 | Outpatient (CLI) | payer OTHER, MEDICARE | END 2021-07-29 11:22 | disposition home or self-care (01) | LOC: LAB.S 11:21 | PROVIDERS: ATTEND Family Medicine | DX: I48.91 Unspecified atrial fibrillation (principal) | CPT/HCPCS: 36416; 85610 ==

== ENCOUNTER 2021-09-02 09:39 | Outpatient (CLI) | payer OTHER, MEDICARE | END 2021-09-02 09:40 | disposition home or self-care (01) | LOC: LAB.S 09:39 | PROVIDERS: ATTEND Family Medicine | DX: I48.91 Unspecified atrial fibrillation (principal) | CPT/HCPCS: 36416; 85610 ==

== ENCOUNTER 2021-10-02 11:14 | Outpatient (CLI) | payer OTHER, MEDICARE | END 2021-10-02 11:15 | disposition home or self-care (01) | LOC: LAB.S 11:14 | PROVIDERS: ATTEND Family Medicine | DX: I48.91 Unspecified atrial fibrillation (principal) | CPT/HCPCS: 36416; 85610 ==

== ENCOUNTER 2021-11-07 13:47 | Outpatient (CLI) | payer OTHER, MEDICARE | END 2021-11-07 13:48 | disposition home or self-care (01) | LOC: RT 13:47 | PROVIDERS: ATTEND Internal Medicine Cardiovascular Disease | DX: I48.91 Unspecified atrial fibrillation (principal) | CPT/HCPCS: 93005 ==

== ENCOUNTER 2022-03-25 12:25 | Outpatient (CLI) | payer OTHER, MEDICARE, MEDICAID ==
--- NOTE | 2022-03-25 16:33 | CT Report ---
PROCEDURE: CHEST WO INDICATIONS: LUNG NODULE TECHNIQUE: Noncontrast 1mm axial images were acquired from the pulmonary apices to the posterior costophrenic an gles. Axial 5 mm soft tissue kernel reconstructions were performed as well as 8 mm axial MIP and cor onal and sagittal 5 mm reformations. For radiation dose reduction, the following was used: automate d exposure control, adjustment of mA and/or kV according to patient size. COMPARISON: 07/12/2020, 04/30/2017 FINDINGS: Image quality: Excellent. Lungs and pleura: There is definite interval increase in the size of a subsolid spiculated pulmonary nodule in the posterior right upper lobe subjacent to the fissure. It now measures 1.2 x 1.0 cm. Of note, this lesion had been stable over an extended period of time. Mild centrilobular emphysema. No a cute air space opacities. No pleural effusions or pneumothorax. Central and peripheral airways are patent and normal in caliber. Mediastinum: Heart size is normal. No pericardial effusion. Moderate coronary artery calcifications . No mediastinal adenopathy by size criteria. Thoracic aorta and central pulmonary arteries are norm al in size. Esophagus is normal in caliber. No hiatal hernia. Bones and chest wall: No suspicious bony lesions. No vertebral body compression fractures. No axil monse or supraclavicular adenopathy by size criteria. Thyroid is suboptimally visualized on this stud y. Abdomen: Visualized upper abdominal solid organs and bowel loops appear normal in the absence of con trast. IMPRESSION: 1. Definite interval increase in size of a spiculated, subsolid pulmonary nodule, in the right upper lobe. Findings are suspicious for a indolent adenocarcinoma or adenocarcinoma in situ. It now measure s 1.0 x 1.2 cm. 2. Mild centrilobular emphysema. 3. Coronary artery disease. Comment: Recommend further evaluation utilizing PET/CT. CLINICAL RECOMMENDATION STATEMENTS: In patients <35 years with an ITN detected on CT, MRI, or extrathyroidal ultrasound, the Committee re commends further evaluation with dedicated thyroid ultrasound if the nodule is "e1 cm and has no susp icious imaging features, and if the patient has normal life expectancy. In patients "e35 years with an ITN detected on CT, MRI, or extrathyroidal ultrasound, the Committee r ecommends further evaluation with dedicated thyroid ultrasound if the nodule is "e1.5 cm and has no s uspicious imaging features, and if the patient has normal life expectancy. (ACR, 2014) Reviewed by: Sonido Barrow MD on 03/25/2022 4:31 PM PDT Approved by: Sonido Barrow MD on 03/25/2022 4:31 PM PDT Station ID: [id number]
== END 2022-03-25 12:26 | disposition home or self-care (01) ==
LOC: DI 12:25
PROVIDERS: ATTEND Nurse Practitioner Family
DX: R91.1 Solitary pulmonary nodule (principal)

== ENCOUNTER 2022-04-03 13:27 | Outpatient (CLI) | payer OTHER, MEDICARE, MEDICAID | END 2022-04-03 13:28 | disposition home or self-care (01) | LOC: RT 13:27 | PROVIDERS: ATTEND Internal Medicine Cardiovascular Disease | DX: I48.91 Unspecified atrial fibrillation (principal); Z79.899 Other long term (current) drug therapy | CPT/HCPCS: 93005 ==

== ENCOUNTER 2022-04-18 12:34 | Outpatient (CLI) | payer MEDICARE, MEDICAID | END 2022-04-18 12:35 | disposition home or self-care (01) | LOC: LAB.S 12:34 | PROVIDERS: ATTEND Physician Assistant | DX: Z79.01 Long term (current) use of anticoagulants (principal) | CPT/HCPCS: 36416; 85610 ==

== ENCOUNTER 2022-06-12 13:23 | Outpatient (CLI) | payer MEDICARE, MEDICAID | END 2022-06-12 13:24 | disposition home or self-care (01) | LOC: LAB.S 13:23 | PROVIDERS: ATTEND Physician Assistant | DX: I48.91 Unspecified atrial fibrillation (principal) | CPT/HCPCS: 36416; 85610 ==

== ENCOUNTER 2022-07-28 12:35 | Outpatient (CLI) | payer MEDICARE, MEDICAID | END 2022-07-28 12:36 | disposition home or self-care (01) | LOC: LAB.S 12:35 | PROVIDERS: ATTEND Physician Assistant | DX: Z79.01 Long term (current) use of anticoagulants (principal) | CPT/HCPCS: 36416; 85610 ==

== ENCOUNTER 2022-08-21 09:43 | Outpatient (CLI) | payer MEDICARE, MEDICAID ==
[2022-08-21 14:25] LABS: BASOPHILS # (AUTO) 0.1 10^3/uL (0.0-0.1); BASOPHILS % (AUTO) 0.4 %; EOSINOPHILS # (AUTO) 0.2 10^3/uL (0.0-0.7); EOSINOPHILS % (AUTO) 1.6 %; HCT - HEMATOCRIT 46.2 % (37.0-47.0); HGB - HEMOGLOBIN 14.5 g/dL (12.0-16.0); LYMPHOCYTES # (AUTO) 3.7 10^3/uL (1.5-3.5); MEAN CORPUSCULAR HEMOGLOBIN 30.1 pg (27.0-31.0); MEAN CORPUSCULAR HGB CONC 31.4 g/dL (32.0-36.0); MEAN PLATELET VOLUME 12.1 fL (7.9-10.8); MONOCYTES # (AUTO) 0.7 10^3/uL (0.0-1.0); MONOCYTES % (AUTO) 5.7 %; NEUTROPHILS % (AUTO) 63.1 %; PLT - PLATELET COUNT 345 10^3/uL (130-450); RED BLOOD COUNT 4.81 10^6/uL (4.20-5.40); RED CELL DISTRIBUTION WIDTH 13.4 % (12.0-15.0); WHITE BLOOD COUNT 12.7 x10^3/uL (4.8-10.8)
[2022-08-21 14:38] LABS: ESTIMATED AVERAGE GLUCOSE 160 mg/dL (70-100); HEMOGLOBIN A1c% 7.2 % (4.27-6.07)
[2022-08-21 14:53] LABS: ALBUMIN 4.2 g/dL (3.2-5.5); ALBUMIN/GLOBULIN RATIO 1.3 (1.0-2.2); ALKALINE PHOSPHATASE 47 IU/L (42-121); ALT ALANINE AMINOTRANSFERASE 13 IU/L (10-60); AST ASPARTATE AMINOTRANSFERASE 14 IU/L (10-42); BILIRUBIN,TOTAL 0.4 mg/dL (0.2-1.0); BUN - BLOOD UREA NITROGEN 19 mg/dL (6-20); CALCIUM 9.7 mg/dL (8.5-10.3); CARBON DIOXIDE - CO2 32 mmol/L (21-32); CHLORIDE 100 mmol/L (101-111); CHOL/HDL RATIO 7.1 (<4.4); CHOLESTEROL 262 mg/dL; CREATININE 0.8 mg/dL (0.4-1.0); GFR - MDRD 69 (>89); GLUCOSE 161 mg/dL (70-100); HDL CHOLESTEROL 37 mg/dL; LDL CHOLESTEROL,CALCULATED 180 mg/dL; LDL/HDL RATIO 4.9 (<4.4); POTASSIUM 4.7 mmol/L (3.5-5.0); SODIUM 142 mmol/L (135-145); TOTAL PROTEIN 7.5 g/dL (6.7-8.2); TRIGLYCERIDES 224 mg/dL; VLDL CHOLESTEROL 45 mg/dL
[2022-08-21 15:03] LABS: THYROID STIMULATING HORMONE 4.53 uIU/mL (0.34-5.60)
== END 2022-08-21 09:44 | disposition home or self-care (01) ==
LOC: LAB.S 09:43
PROVIDERS: ATTEND Physician Assistant
DX: E11.9 Type 2 diabetes mellitus without complications (principal); Z51.81 Encounter for therapeutic drug level monitoring; I25.10 Atherosclerotic heart disease of native coronary artery without angina pectoris; E03.9 Hypothyroidism, unspecified; Z79.01 Long term (current) use of anticoagulants
CPT/HCPCS: 36415; 80053; 80061; 83036; 83721; 84443; 85025; 85610

== ENCOUNTER 2022-08-28 13:48 | Outpatient (CLI) | payer MEDICARE, MEDICAID | END 2022-08-28 13:49 | disposition home or self-care (01) | LOC: LAB.S 13:48 | PROVIDERS: ATTEND Physician Assistant | DX: Z79.01 Long term (current) use of anticoagulants (principal) | CPT/HCPCS: 36416; 85610 ==

== ENCOUNTER 2022-09-29 14:17 | Outpatient (CLI) | payer MEDICARE, MEDICAID | END 2022-09-29 14:18 | disposition home or self-care (01) | LOC: LAB.S 14:17 | PROVIDERS: ATTEND Physician Assistant | DX: Z79.01 Long term (current) use of anticoagulants (principal) | CPT/HCPCS: 36416; 85610 ==

== ENCOUNTER 2022-10-12 16:04 | Outpatient (CLI) | payer MEDICARE, MEDICAID | END 2022-10-12 16:05 | disposition critical access hospital (66) | LOC: EMS 16:04 | DX: R05.9 Cough, unspecified (principal); R53.1 Weakness; R41.0 Disorientation, unspecified; R06.2 Wheezing | CPT/HCPCS: A0425; A0429 ==

== ENCOUNTER 2022-10-12 16:37 | Inpatient (IN) | payer MEDICARE, MEDICAID ==
[2022-10-12 17:07] LABS: BASOPHILS % (AUTO) 0.2 %; EOSINOPHILS # (AUTO) 0.2 10^3/uL (0.0-0.7); EOSINOPHILS % (AUTO) 0.9 %; HCT - HEMATOCRIT 46.5 % (37.0-47.0); HGB - HEMOGLOBIN 15.8 g/dL (12.0-16.0); LYMPHOCYTES # (AUTO) 4.7 10^3/uL (1.5-3.5); LYMPHOCYTES % (AUTO) 20.6 %; MEAN CORPUSCULAR HEMOGLOBIN 29.8 pg (27.0-31.0); MEAN CORPUSCULAR VOLUME 87.6 fL (81.0-99.0); MEAN PLATELET VOLUME 10.4 fL (7.9-10.8); MONOCYTES # (AUTO) 2.2 10^3/uL (0.0-1.0); MONOCYTES % (AUTO) 9.5 %; NEUTROPHILS # (AUTO) 15.6 10^3/uL (1.5-6.6); NEUTROPHILS % (AUTO) 68.4 %; PLT - PLATELET COUNT 392 10^3/uL (130-450); RED BLOOD COUNT 5.31 10^6/uL (4.20-5.40); RED CELL DISTRIBUTION WIDTH 12.3 % (12.0-15.0); WHITE BLOOD COUNT 22.8 x10^3/uL (4.8-10.8)
[2022-10-12 17:08] LABS: SLIDE REVIEW? Indicated
--- NOTE | 2022-10-12 17:09 | ED Physician Documentation ---
History of Present Illness - Stated complaint Stated Complaint: WEAKNESS - Chief complaint Chief Complaint: Resp - History obtained from History obtained from: Patient, EMS - History of Present Illness Timing: How many days ago (4) Pain level max: 0 Pain level now: 0 - Additonal information Additional information: 81-year-old female presents to the emergency department with cough and congestion for the past 4 days. She states she has felt very weak. Does not use oxygen at home. Nothing makes it better or worse. Complains of a wet sounding cough. Review of Systems Constitutional: reports: Fever Nose: reports: Rhinorrhea / runny nose, Congestion Respiratory: reports: Cough GI: denies: Vomiting, Diarrhea, Hematemesis, Bloody / black stool : reports: Incontinent Skin: denies: Rash Musculoskeletal: denies: Neck pain, Back pain PD PAST MEDICAL HISTORY - Past Medical History Cardiovascular: Atrial fibrillation Endocrine/Autoimmune: HyPOthyroidism GI: None : None HEENT: None Psych: Depression, Anxiety Musculoskeletal: Osteoarthritis, Chronic back pain Derm: Other - Past Surgical History General: Cholecystectomy, EGD Ortho: Knee replacement, 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 - Present Medications Home Medications: Ambulatory Orders Medication Instructions Recorded Confirmed LORazepam [Ativan] 1 mg PO ONCE 02/07/16 04/03/16 Levothyroxine [Synthroid] 75 mcg PO QDAC 02/07/16 04/03/16 Sotalol HCl [Sotalol] 80 mg PO DAILY 02/07/16 04/03/16 Warfarin [Coumadin] 2.5 mg PO 1400 02/07/16 04/03/16 clonazePAM [Clonazepam] 1 mg PO DAILY 02/07/16 04/03/16 Gabapentin [Neurontin] 300 mg PO HS 04/03/16 04/03/16 - Allergies Allergies/Adverse Reactions: Allergies Allergy/AdvReac Type Severity Reaction Status Date / Time Penicillins Allergy Unknown Verified 10/12/22 16:46 Sulfa (Sulfonamide Allergy Unknown Verified 10/12/22 16:46 Antibiotics) codeine AdvReac Anaphylaxis Verified 10/12/22 16:46 epinephrine AdvReac Nausea Verified 10/12/22 16:46 morphine AdvReac Nausea Verified 10/12/22 16:46 propofol AdvReac Nausea Verified 10/12/22 16:46 PD ED PE NORMAL - Vitals Vital signs reviewed: Yes - General General: No acute distress, Other (Drowsy, oriented x3) - HEENT HEENT: PERRL, Other (Dry lips) - Neck Neck: Supple, no meningeal sign - Cardiac Cardiac: RRR - Respiratory Respiratory: Other (Rhonchi bilaterally) - Abdomen Abdomen: Soft, Non tender, Non distended - Derm Derm: Warm and dry - Extremities Extremities: No edema - Neuro Neuro: Alert and oriented X 3 - Psych Psych: Normal mood, Normal affect Results - Vitals Vitals: Vital Signs - 24 hr 10/12/22 10/12/22 10/12/22 16:46 16:49 18:49 Temperature 36.6 C 36.6 C Heart Rate 87 87 80 Respiratory 22 22 22 Rate Blood Pressure 139/105 H 139/105 H 122/75 O2 Saturation 94 94 92 10/12/22 10/12/22 20:00 22:00 Temperature Heart Rate 88 78 Respiratory 20 20 Rate Blood Pressure 120/78 140/73 H O2 Saturation 93 92 Oxygen O2 Source Room air - Labs Labs: Laboratory Tests 10/12/22 10/12/22 10/12/22 16:54 16:57 16:57 WBC 22.8 H RBC 5.31 Hgb 15.8 Hct 46.5 MCV 87.6 MCH 29.8 MCHC 34.0 RDW 12.3 Plt Count 392 MPV 10.4 Neut # (Auto) 15.6 H Lymph # (Auto) 4.7 H [place] # (Auto) 2.2 H Eos # (Auto) 0.2 Baso # (Auto) 0.0 Absolute Nucleated RBC 0.00 Band Neuts % (Manual) Not Reportable Abnorm Lymph % (Manual) Not Reportable Nucleated RBC % 0.0 Neutrophils # (Manual) Not Reportable Lymphocytes # (Manual) Not Reportable Monocytes # (Manual) Not Reportable Eosinophils # (Manual) Not Reportable Basophils # (Manual) Not Reportable Differential Comment MANUAL=AUTO DIFF Manual Slide Review Indicated WBC Morphology NORMAL APPEARANCE Platelet Estimate NORMAL (130-450,000) Platelet Morphology NORMAL APPEARANCE RBC Morph Micro Appear NORMAL APPEARANCE INR (Fingerstick) Sodium 121 L Potassium 4.0 Chloride 81 L Carbon Dioxide 30 Anion Gap 10.0 BUN 15 Creatinine 0.7 Estimated GFR (MDRD) 80 L Glucose 209 H Lactic Acid Calcium 9.0 Total Bilirubin 0.8 AST 19 ALT 21 Alkaline Phosphatase 61 Total Protein 7.8 Albumin 4.1 Globulin 3.7 Albumin/Globulin Ratio 1.1 Lipase 25 Urine Color Urine Clarity Urine pH Ur Specific Hominy Urine Protein Urine Glucose (UA) Urine Ketones Urine Occult Blood Urine Nitrite Urine Bilirubin Urine Urobilinogen Ur Leukocyte Esterase Urine RBC Urine WBC Urine WBC Clumps Ur Squamous Epith Cells Urine Bacteria Ur Microscopic Review Urine Culture Comments Nasal Adenovirus (PCR) NOT DETECTED Nasal B. parapertussis DNA (PCR) NOT DETECTED Nasal Coronavir 229E PCR NOT DETECTED Nasal Coronavir HKU1 PCR NOT DETECTED Nasal Coronavir NL63 PCR NOT DETECTED Nasal Coronavir OC43 PCR NOT DETECTED Nasal Enterovir/Rhinovir PCR NOT DETECTED Nasal Influenza A H3 PCR DETECTED A Nasal Influenza B PCR NOT DETECTED Nasal Parainfluen 1 PCR NOT DETECTED Nasal Parainfluen 2 PCR NOT DETECTED Nasal Parainfluen 3 PCR NOT DETECTED Nasal Parainfluen 4 PCR NOT DETECTED Nasal RSV (PCR) NOT DETECTED Nasal B.pertussis DNA PCR NOT DETECTED Nasal C.pneumoniae (PCR) NOT DETECTED Braxton Human Metapneumo PCR NOT DETECTED Nasal M.pneumoniae (PCR) NOT DETECTED Nasal SARS-CoV-2 (PCR) NOT DETECTED 10/12/22 10/12/22 10/12/22 18:20 19:43 19:56 WBC RBC Hgb Hct MCV MCH MCHC RDW Plt Count MPV Neut # (Auto) Lymph # (Auto) [place] # (Auto) Eos # (Auto) Baso # (Auto) Absolute Nucleated RBC Band Neuts % (Manual) Abnorm Lymph % (Manual) Nucleated RBC % Neutrophils # (Manual) Lymphocytes # (Manual) Monocytes # (Manual) Eosinophils # (Manual) Basophils # (Manual) Differential Comment Manual Slide Review WBC Morphology Platelet Estimate Platelet Morphology RBC Morph Micro Appear INR (Fingerstick) 3.2 H Sodium Potassium Chloride Carbon Dioxide Anion Gap BUN Creatinine Estimated GFR (MDRD) Glucose Lactic Acid 1.3 Calcium Total Bilirubin AST ALT Alkaline Phosphatase Total Protein Albumin Globulin Albumin/Globulin Ratio Lipase Urine Color YELLOW Urine Clarity CLOUDY Urine pH 6.0 Ur Specific Hom[place] >=1.030 H Urine Protein 100 H Urine Glucose (UA) NEGATIVE Urine Ketones NEGATIVE Urine Occult Blood MODERATE H Urine Nitrite POSITIVE H Urine Bilirubin NEGATIVE Urine Urobilinogen 0.2 (NORMAL) Ur Leukocyte Esterase MODERATE H Urine RBC TNTC H Urine WBC >25 H Urine WBC Clumps PRESENT Ur Squamous Epith Cells FEW Squamous Urine Bacteria Many H Ur Microscopic Review INDICATED Urine Culture Comments INDICATED Nasal Adenovirus (PCR) Nasal B. parapertussis DNA (PCR) Nasal Coronavir 229E PCR Nasal Coronavir HKU1 PCR Nasal Coronavir NL63 PCR Nasal Coronavir OC43 PCR Nasal Enterovir/Rhinovir PCR Nasal Influenza A H3 PCR Nasal Influenza B PCR Nasal Parainfluen 1 PCR Nasal Parainfluen 2 PCR Nasal Parainfluen 3 PCR Nasal Parainfluen 4 PCR Nasal RSV (PCR) Nasal B.pertussis DNA PCR Nasal C.pneumoniae (PCR) Braxton Human Metapneumo PCR Nasal M.pneumoniae (PCR) Nasal SARS-CoV-2 (PCR) 10/12/22 20:45 WBC RBC Hgb Hct MCV MCH MCHC RDW Plt Count MPV Neut # (Auto) Lymph # (Auto) [place] # (Auto) Eos # (Auto) Baso # (Auto) Absolute Nucleated RBC Band Neuts % (Manual) Abnorm Lymph % (Manual) Nucleated RBC % Neutrophils # (Manual) Lymphocytes # (Manual) Monocytes # (Manual) Eosinophils # (Manual) Basophils # (Manual) Differential Comment Manual Slide Review WBC Morphology Platelet Estimate Platelet Morphology RBC Morph Micro Appear INR (Fingerstick) Sodium 122 L Potassium 5.6 H Chloride 86 L Carbon Dioxide 21 Anion Gap 15.0 H BUN 13 Creatinine 0.6 Estimated GFR (MDRD) 96 Glucose 189 H Lactic Acid Calcium 8.4 L Total Bilirubin AST ALT Alkaline Phosphatase Total Protein Albumin Globulin Albumin/Globulin Ratio Lipase Urine Color Urine Clarity Urine pH Ur Specific [place] Urine Protein Urine Glucose (UA) Urine Ketones Urine Occult Blood Urine Nitrite Urine Bilirubin Urine Urobilinogen Ur Leukocyte Esterase Urine RBC Urine WBC Urine WBC Clumps Ur Squamous Epith Cells Urine Bacteria Ur Microscopic Review Urine Culture Comments Nasal Adenovirus (PCR) Nasal B. parapertussis DNA (PCR) Nasal Coronavir 229E PCR Nasal Coronavir HKU1 PCR Nasal Coronavir NL63 PCR Nasal Coronavir OC43 PCR Nasal Enterovir/Rhinovir PCR Nasal Influenza A H3 PCR Nasal Influenza B PCR Nasal Parainfluen 1 PCR Nasal Parainfluen 2 PCR Nasal Parainfluen 3 PCR Nasal Parainfluen 4 PCR Nasal RSV (PCR) Nasal B.pertussis DNA PCR Nasal C.pneumoniae (PCR) Bra[place] Human Metapneumo PCR Nasal M.pneumoniae (PCR) Nasal SARS-CoV-2 (PCR) - Rads (name of study) cxr Radiology: Final report received, See rad report Head CT Radiology: Final report received, See rad report PD Medical Decision Making - ED course Complexity details: reviewed results, re-evaluated patient, considered differential, d/w patient, d/w family, d/w customer care voice consultant ED course: 81-year-old female presents with altered mental status, cough. Her daughter arrived from home and was able to give us more information. From the daughter the patient has had issues with urinary tract infections causing altered mental status in the past. The patient does take warfarin. Has not fallen. A CBC was ordered, found to have white blood cell count of 22.8. Her INR is elevated at 3.2. On her chemistry, sodium was 121, chloride 81. Glucose 209. Lactate is normal. Blood cultures were drawn. Urinalysis was ordered and a cath specimen was obtained. Shows positive nitrites, greater than 25 white blood cell count, urine WBC clumps and bacteria. Respiratory PCR is positive for influenza A. Chest x-ray does not show any acute abnormalities. Head CT does not show any acute abnormalities. Discussed the case with the hospitalist, reviewed all test results and abnormalities. We will place the patient in observation for further care and slow correction of her sodium. Prior sodium levels have been 1 36-1 40. Patient is not on diuretics. Suspect this is secondary to her acute illness and dehydration. No seizures. No focal neurological deficits. This document was made in part using voice recognition software. While efforts are made to proofread this document, sound alike and grammatical errors may occur. Departure - Departure Disposition: ED Place in Observation Clinical Impression: Influenza, Hyponatremia, Dehydration UTI (urinary tract infection) Qualifiers: Urinary tract infection type: acute cystitis Hematuria presence: without hematuria Qualified Code(s): N30.00 - Acute cystitis without hematuria Condition: Stable
[2022-10-12 17:27] LABS: ALBUMIN 4.1 g/dL (3.2-5.5); ALBUMIN/GLOBULIN RATIO 1.1 (1.0-2.2); BILIRUBIN,TOTAL 0.8 mg/dL (0.2-1.0); CREATININE 0.7 mg/dL (0.4-1.0); TOTAL PROTEIN 7.8 g/dL (6.7-8.2)
[2022-10-12] MEDS ORDERED: SODIUM CHLORIDE 0.9% 1,000 ML IV STA (17:29)
[2022-10-12 17:36] LABS: DIFFERENTIAL COMMENT MANUAL=AUTO DIFF; PLATELET ESTIMATE, MANUAL NORMAL (130-450,000) (NORMAL); PLATELET MORPHOLOGY NORMAL APPEARANCE (NORMAL); RBC MORPHOLOGY (MULTIPLE) NORMAL APPEARANCE (NORMAL); WBC MORPHOLOGY (MULTIPLE) NORMAL APPEARANCE (NORMAL)
--- NOTE | 2022-10-12 17:46 | XRAY Report ---
PROCEDURE: Chest 1 View X-Ray INDICATIONS: cough TECHNIQUE: One view of the chest was acquired. Patient mandible obscures the lung apices COMPARISON: None. FINDINGS: Surgical changes and devices: None. Lungs and pleura: No pleural effusions or pneumothorax. Lungs are clear. Low lung volumes accentua te pulmonary interstitium and heart size. Mediastinum: Mediastinal contours appear normal. Heart size is normal. Bones and chest wall: No suspicious bony lesions. Overlying soft tissues appear unremarkable. IMPRESSION: No acute cardiopulmonary findings Reviewed by: Momo Allen MD on 10/12/2022 4:45 PM [place] Approved by: Momo Allen MD on 10/12/2022 4:45 PM [place] Station ID: [id number]
[2022-10-12 18:01] LABS: B. PARAPERTUSSIS- RESP PCR PAN NOT DETECTED; B. PERTUSSIS- RESP PCR PANEL NOT DETECTED; C. PNEUMONIAE- RESP PCR PANEL NOT DETECTED; CORONAVIRUS 229E-RESP PCR NOT DETECTED; CORONAVIRUS HKU1-RESP PCR NOT DETECTED; CORONAVIRUS NL63-RESP PCR NOT DETECTED; CORONAVIRUS OC43-RESP PCR NOT DETECTED; HUMAN METAPNEUMOVIRUS NOT DETECTED; INFLUENZA A H3- RESP PCR PANEL DETECTED; INFLUENZA B - RESP PCR PANEL NOT DETECTED; M. PNEUMONIAE- RESP PCR PANEL NOT DETECTED; PARAINFLUENZA VIRUS 1 NOT DETECTED; PARAINFLUENZA VIRUS 2 NOT DETECTED; PARAINFLUENZA VIRUS 3 NOT DETECTED; PARAINFLUENZA VIRUS 4 NOT DETECTED; RHINOVIRUS/ENTEROVIRUS NOT DETECTED; RSV- RESP PCR PANEL NOT DETECTED; SARS-CoV-2 -RESP PCR PANEL NOT DETECTED
[2022-10-12 18:37] LABS: BILIRUBIN,URINE NEGATIVE (NEGATIVE); GLUCOSE, URINE (UA) NEGATIVE (NEGATIVE); KETONES,URINE (UA) NEGATIVE (NEGATIVE); LEUKOCYTE ESTERASE, URINE MODERATE (NEGATIVE); NITRITE,URINE POSITIVE (NEGATIVE); OCCULT BLOOD,URINE MODERATE (NEGATIVE); PROTEIN,URINE 100 mg/dL (NEGATIVE); UROBILINOGEN,URINE 0.2 (NORMAL) E.U./dL (NORMAL)
[2022-10-12 18:39] LABS: CLARITY,URINE CLOUDY (CLEAR)
[2022-10-12 18:50] LABS: RBC,URINE TNTC /HPF (0-5); WBC CLUMPS,URINE PRESENT; WBC,URINE >25 /HPF (0-5)
[2022-10-12 18:51] LABS: BACTERIA,URINE Many /HPF (None Seen); SQUAMOUS EPITHELIAL CELL,UR FEW Squamous (<= Few)
[2022-10-12] MEDS ORDERED: cefTRIAXone 1 GM VIAL IVP STA (19:00)
[2022-10-12] MEDS ORDERED: OSELTAMIVIR 75 MG CAPSULE PO STA (20:17)
--- NOTE | 2022-10-12 20:56 | CT Report ---
PROCEDURE: HEAD WO INDICATIONS: altered mental status TECHNIQUE: Noncontrast 4.5 mm thick angled axial sections acquired from the foramen magnum to the vertex. For r adiation dose reduction, the following was used: automated exposure control, adjustment of mA and/or kV according to patient size. COMPARISON: 11/13/2016 FINDINGS: Image quality: Excellent. CSF spaces: Basal cisterns are patent. No extra-axial fluid collections. Ventricles are normal in size and shape. Brain: No midline shift. No intracranial masses or hemorrhage. Tompkins-white matter interface is norm al. Skull and face: Calvarium and visualized facial bones are intact, without suspicious lesions. Sinuses: Visualized sinuses and mastoids are clear. IMPRESSION: No significant intracranial abnormality is seen. Study similar to prior, with brain parenchymal volume loss and chronic small vessel ischemic change. Reviewed by: Albino Drew MD on 10/12/2022 7:55 PM [place] Approved by: Albino Drew MD on 10/12/2022 7:55 PM [facility] Station ID: [id number]
[2022-10-12 21:04] LABS: CALCIUM 8.4 mg/dL (8.5-10.3); CREATININE 0.6 mg/dL (0.4-1.0)
[2022-10-12 21:06] LABS: POTASSIUM 5.6 mmol/L (3.5-5.0)
[2022-10-12] MEDS ORDERED: SODIUM CHLORIDE FLUSH 0.9% 10 ML SYRINGE IVP PRN (21:06)
--- NOTE | 2022-10-12 21:20 | HISTORY & PHYSICAL EXAMINATION ---
Chief Complaint - Chief Complaint Chief Complaint: cough, weakness, fatigue History of Present Illness - History of Present Illness HPI Comment/Other: pt with generalized malaise, cough, weakness, fatigue x 2 days. recently in contact with sick grandchildren. unvaccinated against covid and flu. has had persistent cough . no chest pain, but has SOB associated with cough. h/o copd and hasn't smoked in 40 yr. also with some generalized body aches, dysuria, and foul odor from urine. no hematuria or diarrhea. brief episodes of confusion and tiredness, but no neurologic changes, per daughter. she has had fevers and chills. cough is dry. 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 Meds/Allgy - Home Medications Home Medications: Ambulatory Orders Medication Instructions Recorded Confirmed LORazepam [Ativan] 1 mg PO ONCE 02/07/16 04/03/16 Levothyroxine [Synthroid] 75 mcg PO QDAC 02/07/16 04/03/16 Sotalol HCl [Sotalol] 80 mg PO DAILY 02/07/16 04/03/16 Warfarin [Coumadin] 2.5 mg PO 1400 02/07/16 04/03/16 clonazePAM [Clonazepam] 1 mg PO DAILY 02/07/16 04/03/16 Gabapentin [Neurontin] 300 mg PO HS 04/03/16 04/03/16 - Allergies Allergies/Adverse Reactions: Allergies Allergy/AdvReac Type Severity Reaction Status Date / Time Penicillins Allergy Unknown Verified 10/12/22 16:46 Sulfa (Sulfonamide Allergy Unknown Verified 10/12/22 16:46 Antibiotics) codeine AdvReac Anaphylaxis Verified 10/12/22 16:46 epinephrine AdvReac Nausea Verified 10/12/22 16:46 morphine AdvReac Nausea Verified 10/12/22 16:46 propofol AdvReac Nausea Verified 10/12/22 16:46 Review of Systems - Other Findings Other Findings: 14 pt review done with positives per hpi; all others reviewed as negative Exam - Vital Signs Reviewed Vital Signs: Yes Vital Signs: Vital Signs x48h Temp Pulse Resp BP Pulse Ox 10/12/22 20:00 88 20 120/78 93 10/12/22 18:49 80 22 122/75 92 10/12/22 16:49 36.6 C 87 22 139/105 H 94 10/12/22 16:46 36.6 C 87 22 139/105 H 94 - Physical Exam Comments/Other: gen - aaox3, polite, uncomfortable but cooperative with questions heent - eomi, nc/at, pt wearing mask heart - please refer to ED / RN charting lungs - please refer to ED / RN charting; pt with persistent coughing abd - please refer to ED / RN charting Conclusion/Plan - Lab Results Fish Bones: 10/12/22 22:03 10/12/22 23:30 - Other Other Results/Comments: pt with - - sepsis elevated WBC, HR, reported fevers, and infection mgmt detailed below - hyponatremia multi-factorial, in setting of sepsis, flu, decreased PO intake no focal neuro deficits noted or reported, but has some episodes of conf usion (below) Na 121 with low Cl --> dehydration --> start gentle IVF aim to increase Na 4-6 mEq/L in 24 h once Na is around 125-127, ok to stop IVF encourage good PO intake avoid overcorrection / rapid correction - toxic, metabolic encephalopathy in setting of sepsis + hyponatremia no focal neuro deficits --> pt able to answer questions check CT head to asses for any abnl, and check ammonia levels as well continue monitoring - pyelonephritis contributory to above and overall debility with h/o same f/u cultures, start empiric rocephin gentle IVF - influenza A without acute resp distress pt unvaccinated against covid and flu (covid NEG) currently sat >90s on RA start tamiflu CXR without acute findings also contributory to copd exacerbation (below) - copd exacerbation non-smoker x 40+ yr in setting of influenza A mgmt per above and below, nebs, O2 PRN, supportive mgmt - hyperkalemia likely in setting of dehydration + infection K 5.6, no acute EKG / tele findings reported also in setting of uncontrolled hyperglycemia (below) hyperkalemia protocol - hyperglycemia blood sugar > 200 d/t above and also in setting of t2dm check a1c, start ssi - cough / congestion in setting of flu + copd exacerbation tessalon, mucinex, flonase, loratadine supportive mgmt - generalized weakness d/t above pt wheelchair-bound no falls reported pt / ot eval and treat - chronic a-fib continue home meds and warfarin INR therapeutic at this time f/u labs, cultures, replete electrolytes further orders per clinical course Telemedicine Consult Details - Provider Location & Consult Time Telemedicine consultation conducted via videoconferencing?: Yes
[2022-10-12] MEDS: guaiFENesin 600 MG TABLET PO SCH (21:40)
[2022-10-12] MEDS ORDERED: SODIUM POLYSTYRENE SULFONATE 15 GM/60 ML BOTTLE PO STA (21:56)
[2022-10-12] MEDS ORDERED: IPRATROPIUM/ALBUTEROL 3 ML NEB INH SCH (22:00)
[2022-10-12] MEDS ORDERED: SODIUM CHLORIDE 0.9% 1,000 ML IV SCH (22:00)
[2022-10-12 22:08] LABS: BASOPHILS % (AUTO) 0.2 %; EOSINOPHILS % (AUTO) 1.9 %; HCT - HEMATOCRIT 44.6 % (37.0-47.0); HGB - HEMOGLOBIN 14.8 g/dL (12.0-16.0); LYMPHOCYTES % (AUTO) 22.5 %; MEAN CORPUSCULAR HEMOGLOBIN 29.7 pg (27.0-31.0); MEAN CORPUSCULAR HGB CONC 33.2 g/dL (32.0-36.0); MEAN CORPUSCULAR VOLUME 89.6 fL (81.0-99.0); MEAN PLATELET VOLUME 10.4 fL (7.9-10.8); MONOCYTES % (AUTO) 8.8 %; NEUTROPHILS % (AUTO) 61.8 %; PLT - PLATELET COUNT 331 10^3/uL (130-450); RED BLOOD COUNT 4.98 10^6/uL (4.20-5.40); RED CELL DISTRIBUTION WIDTH 12.4 % (12.0-15.0); WHITE BLOOD COUNT 22.8 x10^3/uL (4.8-10.8)
[2022-10-12 22:12] LABS: SLIDE REVIEW? Indicated
[2022-10-12 22:13] LABS: ABNORMAL LYMPHS % (MANUAL) 0 %
[2022-10-12 22:14] LABS: THYROID STIMULATING HORMONE 3.75 uIU/mL (0.34-5.60)
[2022-10-12 22:28] LABS: BAND NEUTROPHILS % (MANUAL) 2 %; LYMPHOCYTES # (MANUAL) 4.6 10^3/uL (1.5-3.5); LYMPHOCYTES % (MANUAL) 20 %; MONOCYTES # (MANUAL) 0.9 10^3/uL (0.0-1.0); NEUTROPHILS # (MANUAL) 17.3 10^3/uL (1.5-6.6)
[2022-10-12 22:30] LABS: DIFFERENTIAL COMMENT MANUAL DIFFERENTIAL
[2022-10-12 22:33] LABS: PLATELET ESTIMATE, MANUAL NORMAL (130-450,000) (NORMAL); PLATELET MORPHOLOGY NORMAL APPEARANCE (NORMAL); RBC MORPHOLOGY (MULTIPLE) NORMAL APPEARANCE (NORMAL); WBC MORPHOLOGY (MULTIPLE) NORMAL APPEARANCE (NORMAL)
[2022-10-12 22:41] LABS: PROCALCITONIN 0.09 ng/mL (<0.5)
[2022-10-12 22:43] LABS: BUN - BLOOD UREA NITROGEN 13 mg/dL (6-20); CALCIUM 8.6 mg/dL (8.5-10.3); CARBON DIOXIDE - CO2 26 mmol/L (21-32); CHLORIDE 85 mmol/L (101-111); CHOL/HDL RATIO 4.4 (<4.4); CHOLESTEROL 175 mg/dL; CREATININE 0.6 mg/dL (0.4-1.0); GFR - MDRD 96 (>89); GLUCOSE 195 mg/dL (70-100); HDL CHOLESTEROL 40 mg/dL; LDL CHOLESTEROL,CALCULATED 115 mg/dL; LDL/HDL RATIO 2.9 (<4.4); POTASSIUM 3.8 mmol/L (3.5-5.0); SODIUM 122 mmol/L (135-145); TRIGLYCERIDES 101 mg/dL; VLDL CHOLESTEROL 20 mg/dL
[2022-10-12] MEDS ORDERED: IPRATROPIUM/ALBUTEROL 3 ML NEB INH STA (23:45)
[2022-10-13 00:18] LABS: CALCIUM 8.5 mg/dL (8.5-10.3); CREATININE 0.6 mg/dL (0.4-1.0); POTASSIUM 4.1 mmol/L (3.5-5.0)
[2022-10-13] MEDS: SODIUM CHLORIDE FLUSH 0.9% 10 ML SYRINGE IVP SCH ×3 (01:00→16:03)
[2022-10-13 05:20] LABS: BASOPHILS % (AUTO) 0.2 %; EOSINOPHILS % (AUTO) 0.1 %; HCT - HEMATOCRIT 41.3 % (37.0-47.0); HGB - HEMOGLOBIN 14.1 g/dL (12.0-16.0); LYMPHOCYTES % (AUTO) 25.4 %; MEAN CORPUSCULAR HEMOGLOBIN 29.9 pg (27.0-31.0); MEAN CORPUSCULAR HGB CONC 34.1 g/dL (32.0-36.0); MEAN CORPUSCULAR VOLUME 87.7 fL (81.0-99.0); MEAN PLATELET VOLUME 10.3 fL (7.9-10.8); MONOCYTES % (AUTO) 8.5 %; NEUTROPHILS % (AUTO) 65.3 %; PLT - PLATELET COUNT 357 10^3/uL (130-450); RED BLOOD COUNT 4.71 10^6/uL (4.20-5.40); RED CELL DISTRIBUTION WIDTH 12.3 % (12.0-15.0); WHITE BLOOD COUNT 18.2 x10^3/uL (4.8-10.8)
[2022-10-13 05:22] LABS: ABNORMAL LYMPHS % (MANUAL) 0 %; BAND NEUTROPHILS % (MANUAL) 0 %
[2022-10-13 05:26] LABS: INR 3.2 (0.8-1.2); PT - PROTHROMBIN TIME 33.5 secs (9.9-12.6)
[2022-10-13 05:33] LABS: DIFFERENTIAL COMMENT MANUAL DIFFERENTIAL; LYMPHOCYTES # (MANUAL) 4.4 10^3/uL (1.5-3.5); LYMPHOCYTES % (MANUAL) 24 %; MONOCYTES # (MANUAL) 1.8 10^3/uL (0.0-1.0); PLATELET ESTIMATE, MANUAL NORMAL (130-450,000) (NORMAL); PLATELET MORPHOLOGY NORMAL APPEARANCE (NORMAL); RBC MORPHOLOGY (MULTIPLE) NORMAL APPEARANCE (NORMAL); WBC MORPHOLOGY (MULTIPLE) NORMAL APPEARANCE (NORMAL)
[2022-10-13 05:37] LABS: ALBUMIN 3.3 g/dL (3.2-5.5); BILIRUBIN,TOTAL 0.6 mg/dL (0.2-1.0); CALCIUM 8.5 mg/dL (8.5-10.3); CREATININE 0.5 mg/dL (0.4-1.0); MAGNESIUM 1.4 mg/dL (1.7-2.8); POTASSIUM 3.8 mmol/L (3.5-5.0); TOTAL PROTEIN 6.6 g/dL (6.7-8.2)
[2022-10-13] MEDS: LEVOTHYROXINE 75 MCG TABLET PO SCH (08:09)
[2022-10-13] MEDS: INSULIN LISPRO 300 UNIT/3 ML PEN SUBQ SCH ×4 (08:09→20:57)
[2022-10-13] MEDS ORDERED: ZINC SULFATE 220 MG CAPSULE PO SCH (09:00)
[2022-10-13] MEDS ORDERED: THIAMINE 100 MG TABLET PO SCH (09:00)
[2022-10-13] MEDS ORDERED: ASCORBIC ACID 500 MG TABLET PO SCH (09:00)
[2022-10-13] MEDS ORDERED: LACTOBACILLUS RHAMNOSUS GG CAPSULE PO SCH (09:00)
[2022-10-13] MEDS ORDERED: ENOXAPARIN 40 MG/0.4 ML SYRINGE SUBQ SCH (09:00)
[2022-10-13] MEDS ORDERED: SOTALOL 80 MG TABLET PO SCH (09:00)
[2022-10-13] MEDS ORDERED: LORATADINE 10 MG TABLET PO SCH (09:00)
[2022-10-13] MEDS ORDERED: FLUTICASONE NASAL SPRAY NAS SCH (09:00)
[2022-10-13] MEDS ORDERED: CHOLECALCIFEROL 400 UNIT TABLET PO SCH (09:00)
[2022-10-13] MEDS ORDERED: cefTRIAXone 1 GM in SODIUM CHLORIDE 0.9% MINIBAG 100 ML IV SCH (09:00)
[2022-10-13] MEDS ORDERED: FOLIC ACID 1 MG TABLET PO SCH (09:00)
[2022-10-13] MEDS ORDERED: FLUTICASONE NASAL SPRAY NAS ONE (10:45)
[2022-10-13] MEDS ORDERED: guaiFENesin 600 MG TABLET PO ONE (10:45)
[2022-10-13] MEDS: guaiFENesin 600 MG TABLET PO SCH ×2 (10:59→20:58)
[2022-10-13] MEDS: OSELTAMIVIR 75 MG CAPSULE PO SCH ×2 (11:00→20:58)
--- NOTE | 2022-10-13 12:45 | PROVIDER PROGRESS NOTE ---
Assessment/Plan - Problem List (1) Hyponatremia Assessment/Plan: This is multi-factorial, in setting of flu, decreased PO intake and vomiting She has no focal neuro deficits noted or reported, but still has some episodes of confusion (below) Plan: Admit to Inpt status, given the drop in serum Na after iv NS stopped this a.m. as was ordered by Telemedicine doctor Na 121 with low Cl --> dehydration --> start gentle IVF with aim to increase Na 6-8 mEq/L in 24 h,avoid overcorrection / rapid correction (2) N/V This is likely from influenza. She does not have DKA. She cannot tolerate the solid food was ordered. She is asking for antiemetics Plan: Given the continued nausea and vomiting, worsening hyponatremia when IV saline is stopped, will admit her to inpatient status Will order IV antiemetics as needed We will continue with IV hydration Will de-escalate her diet to clear liquids. (3) E coli UTI contributory to #2 and overall debility Plan: f/u cultures, start empiric rocephin gentle IVF (4) metabolic encephalopathy Likely from UTI + hyponatremia She has no focal neuro deficits --> pt able to answer questions but is still intermittentky confused (told me she cannot eat what her daughter made for lunch today, needed to be re-poriented that she is not at home with daughter). checked CT head to asses for any abnl, and check ammonia levels as well Plan: Continue treating the causes continue monitoring (5) influenza A pt unvaccinated against covid and flu (covid NEG) currently sat >90s on RA and CXR without acute findings This also contributory to copd exacerbation (below) She is nauseated, cannot eat the solid food that was ordered Plan: cont tamiflu De-escalate diet to clear liquids Continue giving as needed antiemetic (6) copd exacerbation non-smoker x 40+ yr Likely the flu caused her copd exacerbation Plan: tessalon, mucinex, flonase, loratadine mgmt per above and below, nebs, O2 PRN, supportive mgmt (7) DM type 2 blood sugar > 200 Plan: diet needs to be de-escalated to clear liquids due to persistent nausea check a1c cont ss Insulin and hypoglycemia protocol (8) chronic a-fib Plan: continue home meds and warfarin follow INR daily (9) generalized weakness By Hx pt wheelchair-bound, no falls reported Plan: will need a lift to be OOB Will order that when more stable and not vomiting - Current Meds Current Meds: Current Medications Generic Name Dose Route Start Last Admin Trade Name Iam PRN Reason Stop Dose Admin Ascorbic Acid 500 mg 10/13/22 09:00 10/13/22 10:21 Ascorbic Acid 500 Mg Tablet PO 500 mg DAILY ZANE Administration Cholecalciferol 800 unit 10/13/22 09:00 10/13/22 10:20 Cholecalciferol 400 Unit Tablet PO 800 unit DAILY ZANE Administration Fluticasone Propionate 1 sprays 10/13/22 09:00 10/13/22 11:00 Fluticasone Nasal [place] DENNY 1 spr DAILY ZANE Administration Folic Acid 1 mg 10/13/22 09:00 10/13/22 10:20 Folic Acid 1 Mg Tablet PO 1 mg DAILY ZANE Administration Guaifenesin 600 mg 10/12/22 22:00 10/13/22 10:59 Guaifenesin 600 Mg Tablet PO 600 mg BID ZANE Administration Ceftriaxone Sodium 1 gm/ 100 mls @ 200 mls/hr 10/13/22 09:00 10/13/22 10:51 Sodium Chloride IV 10/20/22 08:59 Infused DAILY ZANE Infusion Insulin Human Lispro 1 - 5 unit 10/13/22 08:00 10/13/22 08:09 Insulin Lispro 300 Unit/3 Ml Pen SUBQ 2 unit 0800,1200,1700,2100 ZANE Administration Protocol Lactobacillus Rhamnosus 1 cap 10/13/22 09:00 10/13/22 10:20 Lactobacillus Rhamnosus Gg Capsule PO 1 cap DAILY ZANE Administration Levothyroxine Sodium 75 mcg 10/13/22 07:00 10/13/22 08:09 Levothyroxine 75 Mcg Tablet PO 75 mcg QDAC ZANE Administration Loratadine 10 mg 10/13/22 09:00 10/13/22 10:20 Loratadine 10 Mg Tablet PO 10 mg DAILY ZANE Administration Oseltamivir Phosphate 75 mg 10/13/22 09:00 10/13/22 11:00 Oseltamivir 75 Mg Capsule PO 75 mg BID ZANE Administration Sodium Chloride 10 ml 10/13/22 01:00 10/13/22 10:21 Sodium Chloride Flush 0.9% 10 Ml Syringe IVP 10 ml 0100,0900,1700 ZANE Administration Sotalol HCl 80 mg 10/13/22 09:00 10/13/22 10:20 Sotalol 80 Mg Tablet PO 80 mg DAILY ZANE Administration Thiamine HCl 100 mg 10/13/22 09:00 10/13/22 10:20 Thiamine 100 Mg Tablet PO 100 mg DAILY ZANE Administration Zinc Sulfate 220 mg 10/13/22 09:00 10/13/22 10:20 Zinc Sulfate 220 Mg Capsule PO 220 mg DAILY ZANE Administration - Lab Result Fish Bone Diagrams: 10/13/22 05:05 10/13/22 11:54 - Additional Planning My Orders: My Active Orders 10/13/22 12:37 Admit \ Transfer \ Status [RC] .ONCE 10/13/22 Dinner Clear Liquid Diet [DIET] 10/13/22 17:00 SODIUM TIMED,URINE [UC] Q12H 10/14/22 05:00 BMP - BASIC METABOLIC PANEL [CHEM] DAILYLAB CBC - COMP BLD CT W/AUTO DIFF [HEME] DAILYLAB MAGNESIUM [CHEM] DAILYLAB PT WITH INR [COAG] DAILYLAB SODIUM TIMED,URINE [UC] Q12H 10/14/22 17:00 SODIUM TIMED,URINE [UC] Q12H 10/15/22 05:00 BMP - BASIC METABOLIC PANEL [CHEM] DAILYLAB CBC - COMP BLD CT W/AUTO DIFF [HEME] DAILYLAB MAGNESIUM [CHEM] DAILYLAB PT WITH INR [COAG] DAILYLAB SODIUM TIMED,URINE [UC] Q12H 10/15/22 17:00 SODIUM TIMED,URINE [UC] Q12H 10/16/22 05:00 BMP - BASIC METABOLIC PANEL [CHEM] DAILYLAB CBC - COMP BLD CT W/AUTO DIFF [HEME] DAILYLAB MAGNESIUM [CHEM] DAILYLAB PT WITH INR [COAG] DAILYLAB 10/17/22 05:00 BMP - BASIC METABOLIC PANEL [CHEM] DAILYLAB CBC - COMP BLD CT W/AUTO DIFF [HEME] DAILYLAB PT WITH INR [COAG] DAILYLAB 10/18/22 05:00 BMP - BASIC METABOLIC PANEL [CHEM] DAILYLAB CBC - COMP BLD CT W/AUTO DIFF [HEME] DAILYLAB PT WITH INR [COAG] DAILYLAB Subjective - Subjective Patient Reports: Cough, Nausea, Shortness of Breath Objective Vital Signs: Vital Signs - 24 hr 10/12/22 10/12/22 10/12/22 16:46 16:49 18:49 Temperature 36.6 C 36.6 C Heart Rate 87 87 80 Heart Rate [ Brachial] Respiratory 22 22 22 Rate Blood Pressure 139/105 H 139/105 H 122/75 Blood Pressure [Right Brachial artery] O2 Saturation 94 94 92 10/12/22 10/12/22 10/12/22 20:00 22:00 23:55 Temperature Heart Rate 88 78 83 Heart Rate [ Brachial] Respiratory 20 20 23 Rate Blood Pressure 120/78 140/73 H Blood Pressure [Right Brachial artery] O2 Saturation 93 92 10/13/22 10/13/22 10/13/22 00:08 07:28 11:35 Temperature 36.7 C 36.3 C L 36.4 C L Heart Rate 84 Heart Rate [ 86 84 Brachial] Respiratory 24 19 20 Rate Blood Pressure 165/84 H Blood Pressure 150/63 H 147/58 H [Right Brachial artery] O2 Saturation 93 93 93 Oxygen O2 Source Room air I&O (Last 24 Hrs): Intake and Output Totals x24h 10/11/22 10/12/22 10/13/22 23:59 23:59 23:59 Intake Total 2073.75 Output Total 125 Balance 1948.75 General: Alert, Moderate distress (from nausea) HEENT: Other (dry mucosa. Cheeks flushed.) Neck: Supple, Other (Cannot evaluate JVP due to obese) Neuro: Alert, Disoriented, Non Focal Cardiovascular: Regular rate, No murmurs (Distant heart sounds due to obese) Respiratory: No respiratory distress Abdomen: Normal bowel sounds, Soft, No tenderness, Other (Obese) Extremities: No clubbing, No edema - Results Results: Laboratory Results WBC 18.2 x10^3/uL (4.8-10.8) H 10/13/22 05:05 RBC 4.71 10^6/uL (4.20-5.40) 10/13/22 05:05 Hgb 14.1 g/dL (12.0-16.0) 10/13/22 05:05 Hct 41.3 % (37.0-47.0) 10/13/22 05:05 MCV 87.7 fL (81.0-99.0) 10/13/22 05:05 MCH 29.9 pg (27.0-31.0) 10/13/22 05:05 MCHC 34.1 g/dL (32.0-36.0) 10/13/22 05:05 RDW 12.3 % (12.0-15.0) 10/13/22 05:05 Plt Count 357 10^3/uL (130-450) 10/13/22 05:05 MPV 10.3 fL (7.9-10.8) 10/13/22 05:05 Neut # (Auto) Not Reportable 10/13/22 05:05 Lymph # (Auto) Not Reportable 10/13/22 05:05 [place] # (Auto) Not Reportable 10/13/22 05:05 Eos # (Auto) Not Reportable 10/13/22 05:05 Baso # (Auto) Not Reportable 10/13/22 05:05 Absolute Nucleated RBC Not Reportable 10/13/22 05:05 Total Counted 100 10/13/22 05:05 Band Neuts % (Manual) 0 % (0-10) 10/13/22 05:05 Abnorm Lymph % (Manual) 0 % 10/13/22 05:05 Nucleated RBC % Not Reportable 10/13/22 05:05 Neutrophils # (Manual) 12.0 10^3/uL (1.5-6.6) H 10/13/22 05:05 Lymphocytes # (Manual) 4.4 10^3/uL (1.5-3.5) H 10/13/22 05:05 Monocytes # (Manual) 1.8 10^3/uL (0.0-1.0) H 10/13/22 05:05 Eosinophils # (Manual) 0.0 10^3/uL (0-0.7) 10/13/22 05:05 Basophils # (Manual) 0.0 10^3/uL (0-0.1) 10/13/22 05:05 Differential Comment MANUAL DIFFERENTIAL 10/13/22 05:05 Manual Slide Review Indicated 10/12/22 22:03 WBC Morphology NORMAL APPEARANCE (NORMAL) 10/13/22 05:05 Platelet Estimate NORMAL (130-450,000) (NORMAL) 10/13/22 05:05 Platelet Morphology NORMAL APPEARANCE (NORMAL) 10/13/22 05:05 RBC Morph Micro Appear NORMAL APPEARANCE (NORMAL) 10/13/22 05:05 PT 33.5 secs (9.9-12.6) H 10/13/22 05:05 INR (Fingerstick) 3.2 (0.8-1.2) H 10/12/22 19:56 INR 3.2 (0.8-1.2) H 10/13/22 05:05 Sodium 122 mmol/L (135-145) L 10/13/22 11:54 Potassium 3.8 mmol/L (3.5-5.0) 10/13/22 05:05 Chloride 87 mmol/L (101-111) L 10/13/22 05:05 Carbon Dioxide 28 mmol/L (21-32) 10/13/22 05:05 Anion Gap 11.0 (6-13) 10/13/22 05:05 BUN 10 mg/dL (6-20) 10/13/22 05:05 Creatinine 0.5 mg/dL (0.4-1.0) 10/13/22 05:05 Estimated GFR (MDRD) 118 (>89) 10/13/22 05:05 Glucose 202 mg/dL (70-100) H 10/13/22 05:05 Lactic Acid 1.0 mmol/L (0.5-2.2) 10/13/22 05:05 Calcium 8.5 mg/dL (8.5-10.3) 10/13/22 05:05 Magnesium 1.4 mg/dL (1.7-2.8) L 10/13/22 05:05 Total Bilirubin 0.6 mg/dL (0.2-1.0) 10/13/22 05:05 AST 17 IU/L (10-42) 10/13/22 05:05 ALT 19 IU/L (10-60) 10/13/22 05:05 Alkaline Phosphatase 55 IU/L (42-121) 10/13/22 05:05 Troponin I High Sens 9.5 ng/L (2.3-14.8) 10/12/22 22:03 Total Protein 6.6 g/dL (6.7-8.2) L 10/13/22 05:05 Albumin 3.3 g/dL (3.2-5.5) 10/13/22 05:05 Globulin 3.3 g/dL (2.1-4.2) 10/13/22 05:05 Albumin/Globulin Ratio 1.0 (1.0-2.2) 10/13/22 05:05 Triglycerides 101 mg/dL (-149) 10/12/22 22:03 Cholesterol 175 mg/dL (-199) 10/12/22 22:03 LDL Cholesterol, Calc 115 mg/dL (-129) 10/12/22 22:03 VLDL Cholesterol 20 mg/dL 10/12/22 22:03 HDL Cholesterol 40 mg/dL (60-) L 10/12/22 22:03 LDL/HDL Ratio 2.9 (<4.4) 10/12/22 22:03 Cholesterol/HDL Ratio 4.4 (<4.4) 10/12/22 22:03 Lipase 25 U/L (22-51) 10/12/22 16:57 Procalcitonin 0.09 ng/mL (<0.5) 10/12/22 16:45 TSH 3.75 uIU/mL (0.34-5.60) 10/12/22 16:45 Urine Color YELLOW 10/12/22 18:20 Urine Clarity CLOUDY (CLEAR) 10/12/22 18:20 Urine pH 6.0 PH (5.0-7.5) 10/12/22 18:20 Ur Specific [place] >=1.030 (1.002-1.030) H 10/12/22 18:20 Urine Protein 100 mg/dL (NEGATIVE) H 10/12/22 18:20 Urine Glucose (UA) NEGATIVE mg/dL (NEGATIVE) 10/12/22 18:20 Urine Ketones NEGATIVE mg/dL (NEGATIVE) 10/12/22 18:20 Urine Occult Blood MODERATE (NEGATIVE) H 10/12/22 18:20 Urine Nitrite POSITIVE (NEGATIVE) H 10/12/22 18:20 Urine Bilirubin NEGATIVE (NEGATIVE) 10/12/22 18:20 Urine Urobilinogen 0.2 (NORMAL) E.U./dL (NORMAL) 10/12/22 18:20 Ur Leukocyte Esterase MODERATE (NEGATIVE) H 10/12/22 18:20 Urine RBC TNTC /HPF (0-5) H 10/12/22 18:20 Urine WBC >25 /HPF (0-5) H 10/12/22 18:20 Urine WBC Clumps PRESENT 10/12/22 18:20 Ur Squamous Epith Cells FEW Squamous (<= Few) 10/12/22 18:20 Urine Bacteria Many /HPF (None Seen) H 10/12/22 18:20 Ur Microscopic Review INDICATED 10/12/22 18:20 Urine Culture Comments INDICATED 10/12/22 18:20 Nasal Adenovirus (PCR) NOT DETECTED 10/12/22 16:54 Nasal B. parapertussis DNA (PCR) NOT DETECTED 10/12/22 16:54 Nasal Coronavir 229E PCR NOT DETECTED 10/12/22 16:54 Nasal Coronavir HKU1 PCR NOT DETECTED 10/12/22 16:54 Nasal Coronavir NL63 PCR NOT DETECTED 10/12/22 16:54 Nasal Coronavir OC43 PCR NOT DETECTED 10/12/22 16:54 Nasal Enterovir/Rhinovir PCR NOT DETECTED 10/12/22 16:54 Nasal Influenza A H3 PCR DETECTED A 10/12/22 16:54 Nasal Influenza B PCR NOT DETECTED 10/12/22 16:54 Nasal Parainfluen 1 PCR NOT DETECTED 10/12/22 16:54 Nasal Parainfluen 2 PCR NOT DETECTED 10/12/22 16:54 Nasal Parainfluen 3 PCR NOT DETECTED 10/12/22 16:54 Nasal Parainfluen 4 PCR NOT DETECTED 10/12/22 16:54 Nasal RSV (PCR) NOT DETECTED 10/12/22 16:54 Nasal Screen MRSA (PCR) NEGATIVE (NEGATIVE) 10/13/22 00: Nasal B.pertussis DNA PCR NOT DETECTED 10/12/22 16:54 Nasal C.pneumoniae (PCR) NOT DETECTED 10/12/22 16:54 Denny Human Metapneumo PCR NOT DETECTED 10/12/22 16:54 Nasal M.pneumoniae (PCR) NOT DETECTED 10/12/22 16:54 Nasal SARS-CoV-2 (PCR) NOT DETECTED 10/12/22 16:54 - Procedures Procedures: Procedures REPLACEMENT OF LEFT LENS WITH SYNTH SUB, PERC APPROACH (02/07/16) REPLACEMENT OF RIGHT LENS WITH SYNTH SUB, PERC APPROACH (04/03/16)
[2022-10-13] MEDS: SODIUM CHLORIDE 0.9% 1,000 ML IV SCH (13:22)
[2022-10-13 13:45] LABS: ESTIMATED AVERAGE GLUCOSE 169 mg/dL (70-100); HEMOGLOBIN A1c% 7.5 % (4.27-6.07)
[2022-10-13] MEDS ORDERED: ONDANSETRON 4 MG/2 ML VIAL IVP PRN (13:48)
[2022-10-13] MEDS ORDERED: MAGNESIUM SULFATE 2 GRAM 2 GM/50 ML BAG IV ONE (13:48)
[2022-10-13] MEDS: ALBUTEROL NEB 2.5 MG/3 ML INH PRN ×2 (15:54→22:30)
[2022-10-13] MEDS: BENZONATATE 100 MG CAPSULE PO PRN (16:02)
--- NOTE | 2022-10-13 16:55 | PHARMACY PROGRESS NOTE ---
- Best Possible Medication History Admit Date and Time: 10/13/22 1237 Processed by: Pharmacy Medication History completed: Yes Patient Interview: Pt unable to participate Secondary Source(s): Other family member (Called and reconciled med with mikayla cano, who normall manages pt's meds. ), Insurance records As the person ultimately responsible for medication therapy, providers are able to order a medication from an existing home medication list in [facility] via the "Reconcile Routine" prior to Confirmation of that medication by technical customer support specialist. Such practice is discouraged except when the physician, in their clinical judgment, deems that a medical need exists for a medication without regard to previous use.
--- NOTE | 2022-10-13 19:28 | XRAY Report ---
PROCEDURE: Chest 1 View X-Ray INDICATIONS: Worse cough since got iv fluids TECHNIQUE: One view of the chest was acquired. COMPARISON: None. FINDINGS: Surgical changes and devices: None. Lungs and pleura: No pleural effusions or pneumothorax. Lungs are clear. Mediastinum: Mediastinal contours appear normal. Heart size is normal. Bones and chest wall: No suspicious bony lesions. Overlying soft tissues appear unremarkable. IMPRESSION: No acute finding. Reviewed by: Dakota Greer MD on 10/13/2022 7:27 PM PST Approved by: Dakota Greer MD on 10/13/2022 7:27 PM PST Station ID: [id number]
[2022-10-13] MEDS: MIN OIL/DIMETHICON/COCONUT OIL 92 GM TUBE TOP PRN (21:00)
[2022-10-13] MEDS ORDERED: GABAPENTIN 300 MG CAPSULE PO SCH (21:00)
[2022-10-14] MEDS: SODIUM CHLORIDE 0.9% 1,000 ML IV SCH ×2 (00:56→13:30)
[2022-10-14] MEDS ORDERED: BENZONATATE 100 MG CAPSULE PO ONE (01:00)
[2022-10-14] MEDS: BENZONATATE 100 MG CAPSULE PO PRN ×2 (01:01→21:22)
[2022-10-14] MEDS: SODIUM CHLORIDE FLUSH 0.9% 10 ML SYRINGE IVP SCH ×3 (01:01→17:36)
[2022-10-14] MEDS: MIN OIL/DIMETHICON/COCONUT OIL 92 GM TUBE TOP PRN (05:20)
[2022-10-14 05:58] LABS: BASOPHILS % (AUTO) 0.3 %; EOSINOPHILS % (AUTO) 0.5 %; HCT - HEMATOCRIT 42.4 % (37.0-47.0); HGB - HEMOGLOBIN 14.2 g/dL (12.0-16.0); LYMPHOCYTES % (AUTO) 32.3 %; MEAN CORPUSCULAR HEMOGLOBIN 29.7 pg (27.0-31.0); MEAN CORPUSCULAR HGB CONC 33.5 g/dL (32.0-36.0); MEAN CORPUSCULAR VOLUME 88.7 fL (81.0-99.0); MEAN PLATELET VOLUME 10.9 fL (7.9-10.8); MONOCYTES % (AUTO) 9.3 %; PLT - PLATELET COUNT 405 10^3/uL (130-450); RED BLOOD COUNT 4.78 10^6/uL (4.20-5.40); RED CELL DISTRIBUTION WIDTH 12.5 % (12.0-15.0); WHITE BLOOD COUNT 19.3 x10^3/uL (4.8-10.8)
[2022-10-14 06:03] LABS: INR 2.4 (0.8-1.2); PT - PROTHROMBIN TIME 25.6 secs (9.9-12.6)
[2022-10-14 06:04] LABS: CALCIUM 8.3 mg/dL (8.5-10.3); CREATININE 0.5 mg/dL (0.4-1.0); POTASSIUM 3.4 mmol/L (3.5-5.0)
[2022-10-14 06:05] LABS: BAND NEUTROPHILS % (MANUAL) 0 %
[2022-10-14 06:14] LABS: ABNORMAL LYMPHS % (MANUAL) 1 %; DIFFERENTIAL COMMENT MANUAL DIFFERENTIAL; EOSINOPHILS # (MANUAL) 0.2 10^3/uL (0-0.7); LYMPHOCYTES # (MANUAL) 5.8 10^3/uL (1.5-3.5); LYMPHOCYTES % (MANUAL) 29 %; MONOCYTES # (MANUAL) 1.7 10^3/uL (0.0-1.0); NEUTROPHILS # (MANUAL) 11.6 10^3/uL (1.5-6.6); PLATELET ESTIMATE, MANUAL NORMAL (130-450,000) (NORMAL); PLATELET MORPHOLOGY NORMAL APPEARANCE (NORMAL); RBC MORPHOLOGY (MULTIPLE) NORMAL APPEARANCE (NORMAL); WBC MORPHOLOGY (MULTIPLE) NORMAL APPEARANCE (NORMAL)
[2022-10-14] MEDS: LEVOTHYROXINE 75 MCG TABLET PO SCH (06:32)
[2022-10-14] MEDS: INSULIN LISPRO 300 UNIT/3 ML PEN SUBQ SCH ×4 (09:00→21:18)
[2022-10-14] MEDS ORDERED: SOTALOL 80 MG TABLET PO SCH (09:00)
[2022-10-14] MEDS: cefTRIAXone 1 GM in SODIUM CHLORIDE 0.9% MINIBAG 100 ML IV SCH (09:02)
[2022-10-14] MEDS: ZINC SULFATE 220 MG CAPSULE PO SCH (09:03)
[2022-10-14] MEDS: FOLIC ACID 1 MG TABLET PO SCH (09:03)
[2022-10-14] MEDS: ASCORBIC ACID 500 MG TABLET PO SCH (09:06)
[2022-10-14] MEDS: LORATADINE 10 MG TABLET PO SCH (09:06)
[2022-10-14] MEDS: CHOLECALCIFEROL 400 UNIT TABLET PO SCH (09:06)
[2022-10-14] MEDS: OSELTAMIVIR 75 MG CAPSULE PO SCH ×2 (09:07→21:20)
[2022-10-14] MEDS: guaiFENesin 600 MG TABLET PO SCH ×2 (09:07→21:20)
[2022-10-14] MEDS: THIAMINE 100 MG TABLET PO SCH (09:09)
[2022-10-14] MEDS: FLUTICASONE NASAL SPRAY NAS SCH (09:11)
[2022-10-14] MEDS: LACTOBACILLUS RHAMNOSUS GG CAPSULE PO SCH (11:21)
[2022-10-14] MEDS ORDERED: LORazepam 0.5 MG TABLET PO ONE (11:38)
[2022-10-14] MEDS ORDERED: CALCIUM CARBONATE CHEW 500 MG TABLET PO STA (11:39)
[2022-10-14] MEDS: PANTOPRAZOLE 40 MG TABLET PO SCH (12:48)
[2022-10-14] MEDS: ALBUTEROL NEB 2.5 MG/3 ML INH PRN (14:22)
[2022-10-14] MEDS: WARFARIN 2.5 MG TABLET PO SCH ×2 (14:45→15:24)
--- NOTE | 2022-10-14 18:29 | PROVIDER PROGRESS NOTE ---
Objective - Vital Signs/Intake & Output Vital Signs: Vital Signs x48h Temp Pulse Pulse Resp BP Pulse Ox O2 Flow Rate 10/14/22 17:14 92 10/14/22 16:05 97 1 10/14/22 15:40 4 10/14/22 15:38 36.6 C 101 H 20 159/86 H 92 4 10/14/22 14:23 80 20 10/14/22 13:00 36 C L 100 14 149/55 H 87 L Intake & Output: Intake & Output 10/11/22 10/12/22 10/13/22 10/14/22 23:59 23:59 23:59 23:59 Intake Total 3482.080 1895.555 Output Total 475 Balance 3007.080 1895.555 - Lab Results Fish Bones: 10/14/22 05:12 10/14/22 05:12 Other Labs: Lab Results x24hrs 10/14/22 10/14/22 10/14/22 Range/Units 05:12 05:12 05:12 WBC (4.8-10.8) x10^3/uL RBC (4.20-5.40) 10^6/uL Hgb (12.0-16.0) g/dL Hct (37.0-47.0) % MCV (81.0-99.0) fL MCH (27.0-31.0) pg MCHC (32.0-36.0) g/dL RDW (12.0-15.0) % Plt Count (130-450) 10^3/uL MPV (7.9-10.8) fL Neut # (Auto) Lymph # (Auto) Scott # (Auto) Eos # (Auto) Baso # (Auto) Absolute Nucleated RBC Total Counted Band Neuts % (Manual) (0 - 10) % Abnorm Lymph % (Manual) % Nucleated RBC % Neutrophils # (Manual) (1.5-6.6) 10^3/uL Lymphocytes # (Manual) (1.5-3.5) 10^3/uL Monocytes # (Manual) (0.0-1.0) 10^3/uL Eosinophils # (Manual) (0-0.7) 10^3/uL Basophils # (Manual) (0-0.1) 10^3/uL Differential Comment WBC Morphology (NORMAL) Platelet Estimate (NORMAL) Platelet Morphology (NORMAL) RBC Morph Micro Appear (NORMAL) PT 25.6 H (9.9-12.6) secs INR 2.4 H (0.8-1.2) Sodium 127 L (135-145) mmol/L Potassium 3.4 L (3.5-5.0) mmol/L Chloride 86 L (101-111) mmol/L Carbon Dioxide 30 (21-32) mmol/L Anion Gap 11.0 (6-13) BUN 8 (6-20) mg/dL Creatinine 0.5 (0.4-1.0) mg/dL Estimated GFR (MDRD) 118 (>89) Glucose 154 H (70-100) mg/dL Calcium 8.3 L (8.5-10.3) mg/dL Magnesium 2.0 (1.7-2.8) mg/dL B-Natriuretic Peptide 194 H (5-100) pg/mL 10/14/22 Range/Units 05:12 WBC 19.3 H (4.8-10.8) x10^3/uL RBC 4.78 (4.20-5.40) 10^6/uL Hgb 14.2 (12.0-16.0) g/dL Hct 42.4 (37.0-47.0) % MCV 88.7 (81.0-99.0) fL MCH 29.7 (27.0-31.0) pg MCHC 33.5 (32.0-36.0) g/dL RDW 12.5 (12.0-15.0) % Plt Count 405 (130-450) 10^3/uL MPV 10.9 H (7.9-10.8) fL Neut # (Auto) Not Reportable Lymph # (Auto) Not Reportable Scott # (Auto) Not Reportable Eos # (Auto) Not Reportable Baso # (Auto) Not Reportable Absolute Nucleated RBC Not Reportable Total Counted 100 Band Neuts % (Manual) 0 (0 - 10) % Abnorm Lymph % (Manual) 1 % Nucleated RBC % Not Reportable Neutrophils # (Manual) 11.6 H (1.5-6.6) 10^3/uL Lymphocytes # (Manual) 5.8 H (1.5-3.5) 10^3/uL Monocytes # (Manual) 1.7 H (0.0-1.0) 10^3/uL Eosinophils # (Manual) 0.2 (0-0.7) 10^3/uL Basophils # (Manual) 0.0 (0-0.1) 10^3/uL Differential Comment MANUAL DIFFERENTIAL WBC Morphology NORMAL APPEARANCE (NORMAL) Platelet Estimate NORMAL (130-450,000) (NORMAL) Platelet Morphology NORMAL APPEARANCE (NORMAL) RBC Morph Micro Appear NORMAL APPEARANCE (NORMAL) PT (9.9-12.6) secs INR (0.8-1.2) Sodium (135-145) mmol/L Potassium (3.5-5.0) mmol/L Chloride (101-111) mmol/L Carbon Dioxide (21-32) mmol/L Anion Gap (6-13) BUN (6-20) mg/dL Creatinine (0.4-1.0) mg/dL Estimated GFR (MDRD) (>89) Glucose (70-100) mg/dL Calcium (8.5-10.3) mg/dL Magnesium (1.7-2.8) mg/dL B-Natriuretic Peptide (5-100) pg/mL
[2022-10-14] MEDS ORDERED: traZODone 50 MG TABLET PO SCH (21:00)
[2022-10-14] MEDS ORDERED: GABAPENTIN 300 MG CAPSULE PO SCH (21:00)
--- NOTE | 2022-10-14 21:05 | PROVIDER PROGRESS NOTE ---
Hospitalist Cross-cover Note - Cross-Cover Note Cross-Cover Note: Patient admitted for UTI, Sepsis, Flu A on 10/12/22. On Rocephin daily, Urine culture grew out EColi. Developed loose stools, now tested CDiff positive. Multiple allergies. Other history: AFib, Chronic back pain, OA, Dep/Anxiety. Need order to start treatment for CDiff Vancomycin po 125 mg qid ordered
--- NOTE | 2022-10-14 21:30 | PROVIDER PROGRESS NOTE ---
Objective - Vital Signs/Intake & Output Reviewed Vital Signs: Yes Vital Signs: Vital Signs x48h Temp Pulse Pulse Resp BP BP Pulse Ox 10/14/22 21:00 36.4 C L 84 24 158/70 H 97 10/14/22 17:14 92 10/14/22 16:05 97 10/14/22 15:40 10/14/22 15:38 36.6 C 101 H 20 159/86 H 92 10/14/22 14:23 80 20 O2 Flow Rate 10/14/22 21:00 2 10/14/22 17:14 10/14/22 16:05 1 10/14/22 15:40 4 10/14/22 15:38 4 10/14/22 14:23 Intake & Output: Intake & Output 10/11/22 10/12/22 10/13/22 10/14/22 23:59 23:59 23:59 23:59 Intake Total 3482.080 2195.555 Output Total 475 Balance 3007.080 2195.555 - Lab Results Fish Bones: 10/14/22 05:12 10/14/22 05:12 Other Labs: Lab Results x24hrs 10/14/22 10/14/22 10/14/22 Range/Units 18:20 05:12 05:12 WBC (4.8-10.8) x10^3/uL RBC (4.20-5.40) 10^6/uL Hgb (12.0-16.0) g/dL Hct (37.0-47.0) % MCV (81.0-99.0) fL MCH (27.0-31.0) pg MCHC (32.0-36.0) g/dL RDW (12.0-15.0) % Plt Count (130-450) 10^3/uL MPV (7.9-10.8) fL Neut # (Auto) Lymph # (Auto) [place] # (Auto) Eos # (Auto) Baso # (Auto) Absolute Nucleated RBC Total Counted Band Neuts % (Manual) (0 - 10) % Abnorm Lymph % (Manual) % Nucleated RBC % Neutrophils # (Manual) (1.5-6.6) 10^3/uL Lymphocytes # (Manual) (1.5-3.5) 10^3/uL Monocytes # (Manual) (0.0-1.0) 10^3/uL Eosinophils # (Manual) (0-0.7) 10^3/uL Basophils # (Manual) (0-0.1) 10^3/uL Differential Comment WBC Morphology (NORMAL) Platelet Estimate (NORMAL) Platelet Morphology (NORMAL) RBC Morph Micro Appear (NORMAL) PT (9.9-12.6) secs INR (0.8-1.2) Sodium 127 L (135-145) mmol/L Potassium 3.4 L (3.5-5.0) mmol/L Chloride 86 L (101-111) mmol/L Carbon Dioxide 30 (21-32) mmol/L Anion Gap 11.0 (6-13) BUN 8 (6-20) mg/dL Creatinine 0.5 (0.4-1.0) mg/dL Estimated GFR (MDRD) 118 (>89) Glucose 154 H (70-100) mg/dL Calcium 8.3 L (8.5-10.3) mg/dL Magnesium 2.0 (1.7-2.8) mg/dL B-Natriuretic Peptide 194 H (5-100) pg/mL Stl C. diff Tox B Gene POSITIVE A* (NEGATIVE) 10/14/22 10/14/22 Range/Units 05:12 05:12 WBC 19.3 H (4.8-10.8) x10^3/uL RBC 4.78 (4.20-5.40) 10^6/uL Hgb 14.2 (12.0-16.0) g/dL Hct 42.4 (37.0-47.0) % MCV 88.7 (81.0-99.0) fL MCH 29.7 (27.0-31.0) pg MCHC 33.5 (32.0-36.0) g/dL RDW 12.5 (12.0-15.0) % Plt Count 405 (130-450) 10^3/uL MPV 10.9 H (7.9-10.8) fL Neut # (Auto) Not Reportable Lymph # (Auto) Not Reportable [place] # (Auto) Not Reportable Eos # (Auto) Not Reportable Baso # (Auto) Not Reportable Absolute Nucleated RBC Not Reportable Total Counted 100 Band Neuts % (Manual) 0 (0 - 10) % Abnorm Lymph % (Manual) 1 % Nucleated RBC % Not Reportable Neutrophils # (Manual) 11.6 H (1.5-6.6) 10^3/uL Lymphocytes # (Manual) 5.8 H (1.5-3.5) 10^3/uL Monocytes # (Manual) 1.7 H (0.0-1.0) 10^3/uL Eosinophils # (Manual) 0.2 (0-0.7) 10^3/uL Basophils # (Manual) 0.0 (0-0.1) 10^3/uL Differential Comment MANUAL DIFFERENTIAL WBC Morphology NORMAL APPEARANCE (NORMAL) Platelet Estimate NORMAL (130-450,000) (NORMAL) Platelet Morphology NORMAL APPEARANCE (NORMAL) RBC Morph Micro Appear NORMAL APPEARANCE (NORMAL) PT 25.6 H (9.9-12.6) secs INR 2.4 H (0.8-1.2) Sodium (135-145) mmol/L Potassium (3.5-5.0) mmol/L Chloride (101-111) mmol/L Carbon Dioxide (21-32) mmol/L Anion Gap (6-13) BUN (6-20) mg/dL Creatinine (0.4-1.0) mg/dL Estimated GFR (MDRD) (>89) Glucose (70-100) mg/dL Calcium (8.5-10.3) mg/dL Magnesium (1.7-2.8) mg/dL B-Natriuretic Peptide (5-100) pg/mL Stl C. diff Tox B Gene (NEGATIVE)
--- NOTE | 2022-10-14 21:41 | PROVIDER PROGRESS NOTE ---
Progress Note 81-year-old female with COPD, Type 2 diabetes, chronic A. fib, wheelchair-bound with generalized weakness who was admitted with sepsis, influenza A, COPD exacerbation, E. coli UTI and metabolic encephalopathy. Subjective: Patient reports she is feeling about the same today. She complains of ongoing difficulty with shortness of breath. Continues to feel weak. Objective: GEN: Alert, pleasant, ill appearing, NAD HEENT: NC Chest: Coarse, diffuse wheeze, frequent cough CV: RRR, no M/R/G Abd: Soft, NT/ND BTX4 Extr: Warm, no C/C/E Assesssment/Plan: 1. E coli UTI, Sensitive to all but gentamicin Remains on IV Rocephin. She nis tolerating some po intake. Continue PRN antiemetics. 2. Hyponatremia Sodium is up from 122 to 127 today. Continues IVF. Will repeat labs in am. 3. Nausea/vomiting Improved. She is tolerating some po intake. Continue antiemetics PRN. 4. Influenza A Remains on Tamiflu. Continue droplet precautions. 5. COPD exacerbation Persistent wheezes/diminished breath sounds. Will add budesonide/perforomist. 6. Metabolic enceophalopathy Likely multifactorial from hyponatremia and infection. Improving slowly. 7. DM2 BGs stable. Overall trending in the mid-100s in the past 24 hrs. 8. Chronic a fib Rate controlled. Therapeutic INR 9. Generalized weakness WC bound at baseline. 10. Leukocytosis Likely d/t acute infection/steroids. Will monitor. 11. Diarrhea Taking culturelle. Adding fiber per dtr's request (she reportedly takes it at home on a daily basis to control diarrhea). C diff ordered as well. 12. Hypokalemia Repleting orally. REcheck in am. Code Full Prophy On warfarin Dispo Pending d/c home when improved.
[2022-10-14] MEDS: clonazePAM 0.5 MG TABLET PO SCH (22:06)
[2022-10-14] MEDS: VANCOMYCIN 125 MG CAPSULE PO SCH (22:06)
[2022-10-15] MEDS: SODIUM CHLORIDE 0.9% 1,000 ML IV SCH ×2 (01:42→19:43)
[2022-10-15] MEDS: MIN OIL/DIMETHICON/COCONUT OIL 92 GM TUBE TOP PRN (01:43)
[2022-10-15] MEDS: SODIUM CHLORIDE FLUSH 0.9% 10 ML SYRINGE IVP SCH ×4 (01:44→21:25)
[2022-10-15 05:40] LABS: BASOPHILS % (AUTO) 0.2 %; EOSINOPHILS % (AUTO) 0.3 %; HCT - HEMATOCRIT 40.3 % (37.0-47.0); HGB - HEMOGLOBIN 13.5 g/dL (12.0-16.0); LYMPHOCYTES % (AUTO) 25.5 %; MEAN CORPUSCULAR HGB CONC 33.5 g/dL (32.0-36.0); MEAN CORPUSCULAR VOLUME 89.6 fL (81.0-99.0); MEAN PLATELET VOLUME 10.4 fL (7.9-10.8); MONOCYTES % (AUTO) 11.4 %; NEUTROPHILS % (AUTO) 61.8 %; PLT - PLATELET COUNT 433 10^3/uL (130-450); RED CELL DISTRIBUTION WIDTH 12.5 % (12.0-15.0); WHITE BLOOD COUNT 18.2 x10^3/uL (4.8-10.8)
[2022-10-15] MEDS: FORMOTEROL FUMARATE NEB 20 MCG/2 ML INH SCH ×3 (05:48→15:51)
[2022-10-15] MEDS: BUDESONIDE 0.5 MG/2 ML NEB INH SCH ×3 (05:48→15:51)
[2022-10-15 05:51] LABS: ABNORMAL LYMPHS % (MANUAL) 0 %; BAND NEUTROPHILS % (MANUAL) 0 %
[2022-10-15 05:52] LABS: CALCIUM 7.9 mg/dL (8.5-10.3); CREATININE 0.5 mg/dL (0.4-1.0); MAGNESIUM 2.1 mg/dL (1.7-2.8); POTASSIUM 3.2 mmol/L (3.5-5.0)
[2022-10-15 05:53] LABS: INR 2.7 (0.8-1.2); PT - PROTHROMBIN TIME 27.9 secs (9.9-12.6)
[2022-10-15 06:07] LABS: DIFFERENTIAL COMMENT MANUAL DIFFERENTIAL; LYMPHOCYTES # (MANUAL) 4.2 10^3/uL (1.5-3.5); LYMPHOCYTES % (MANUAL) 23 %; MONOCYTES # (MANUAL) 1.8 10^3/uL (0.0-1.0); NEUTROPHILS # (MANUAL) 12.2 10^3/uL (1.5-6.6); PLATELET ESTIMATE, MANUAL NORMAL (130-450,000) (NORMAL); PLATELET MORPHOLOGY NORMAL APPEARANCE (NORMAL); RBC MORPHOLOGY (MULTIPLE) NORMAL APPEARANCE (NORMAL); WBC MORPHOLOGY (MULTIPLE) NORMAL APPEARANCE (NORMAL)
[2022-10-15] MEDS: PANTOPRAZOLE 40 MG TABLET PO SCH (07:18)
[2022-10-15] MEDS: LEVOTHYROXINE 75 MCG TABLET PO SCH (07:18)
[2022-10-15] MEDS ORDERED: iohexoL-300 100 ML VIAL ONE (08:37)
[2022-10-15] MEDS ORDERED: NON FORMULARY MED (Lactobacillus Combination No.4 [Probiotic] 1 EACH Capsule) PO SCH (09:00)
[2022-10-15 09:09] LABS: ABG PH 7.29 (7.35-7.45)
[2022-10-15 09:10] LABS: ABG BASE EXCESS 4.9 mmol/L (-2.0-3.0); ABG HCO3 33.8 mmol/L (22.0-26.0); ABG OXYGEN SATURATION 95 % (94-98); ABG PO2 73 mmHg (80-100)
[2022-10-15 09:12] LABS: ABG PCO2 72 mmHg (34-45)
[2022-10-15] MEDS: cefTRIAXone 1 GM in SODIUM CHLORIDE 0.9% MINIBAG 100 ML IV SCH (09:20)
[2022-10-15] MEDS: INSULIN LISPRO 300 UNIT/3 ML PEN SUBQ SCH ×4 (09:20→21:22)
[2022-10-15] MEDS: ASCORBIC ACID 500 MG TABLET PO SCH (11:58)
[2022-10-15] MEDS: CHOLECALCIFEROL 400 UNIT TABLET PO SCH (11:59)
[2022-10-15] MEDS: FLUTICASONE NASAL SPRAY NAS SCH (11:59)
[2022-10-15] MEDS: FOLIC ACID 1 MG TABLET PO SCH (11:59)
[2022-10-15] MEDS: LORATADINE 10 MG TABLET PO SCH (12:00)
[2022-10-15] MEDS: guaiFENesin 600 MG TABLET PO SCH ×2 (12:00→21:16)
[2022-10-15] MEDS: LACTOBACILLUS RHAMNOSUS GG CAPSULE PO SCH (12:00)
[2022-10-15] MEDS: OSELTAMIVIR 75 MG CAPSULE PO SCH ×2 (12:01→21:17)
[2022-10-15] MEDS: VANCOMYCIN 125 MG CAPSULE PO SCH ×4 (12:02→21:16)
[2022-10-15] MEDS: SOTALOL 80 MG TABLET PO SCH ×2 (12:02→21:17)
[2022-10-15] MEDS: THIAMINE 100 MG TABLET PO SCH (12:02)
[2022-10-15] MEDS: WHEAT DEXTRIN POWDER PACKET PO SCH (12:03)
[2022-10-15] MEDS: ZINC SULFATE 220 MG CAPSULE PO SCH (12:03)
[2022-10-15] MEDS: POTASSIUM CHLOR 10 MEQ/100 ML 10 MEQ/100 ML BAG IV SCH ×4 (12:56→16:31)
[2022-10-15 13:12] LABS: ABG BASE EXCESS 5.5 mmol/L (-2.0-3.0); ABG HCO3 32.2 mmol/L (22.0-26.0); ABG OXYGEN SATURATION 93 % (94-98); ABG PCO2 55 mmHg (34-45); ABG PH 7.38 (7.35-7.45); ABG PO2 60 mmHg (80-100); ABG TCO2 33.9 MMOL/L (21.0-29.0)
[2022-10-15 13:13] LABS: ALLEN TEST POSITIVE
[2022-10-15] MEDS: WARFARIN 2.5 MG TABLET PO SCH (14:07)
--- NOTE | 2022-10-15 18:48 | PROVIDER PROGRESS NOTE ---
Progress Note October 15, 2022 6:45 PM She is wheelchair-bound and needs a lift. Strength seems to be slightly worse here. Lift is almost always now. She is with decreased consciousness. At times unresponsive. Can be difficult to feed her so we will get a start holding her trays. Nursing is worried about the trazodone and clonazepam she got last night. But in looking at her med list this patient takes clonazepam and trazodone on a regular basis. With the change in consciousness, she has not been hypotensive. But she is getting more hypoxic. She was on room air then a simple mask, then anoxia mask, then an Oxymizer. Because she was getting so unresponsive I did an ABG and pH was 7.29, PCO2 72, PO2 73. Base excess 4.9. To try and wake her up and see if PCO2 is a problem, I had to transfer to the ICU to be able to put a BiPAP on her. pH became 7.38, PCO2 55, PO2 60. No clear reason for why she became so encephalopathic this morning. No fever, no focal findings.And her drug list is the same as always.I ordered a CT of the head, and would like to do CT for pulmonary angiogram. I ordered that this morning but they are not available till tonight. As the days progressed she is gotten more awake. More responsive. She is now starting to say she does not want to CT pulmonary angiogram Active Medications Albuterol (Albuterol Neb 2.5 Mg/3 Ml) 2.5 mg INH Q4H PRN PRN Reason: Shortness of Air/Wheezing Last Admin: 10/14/22 14:22 Dose: 2.5 mg Ascorbic Acid (Ascorbic Acid 500 Mg Tablet) 500 mg PO DAILY [facility] Last Admin: 10/15/22 11:58 Dose: Not Given Benzonatate (Benzonatate 100 Mg Capsule) 100 mg PO TID PRN PRN Reason: Cough Last Admin: 10/14/22 21:22 Dose: 100 mg Budesonide (Budesonide 0.5 Mg/2 Ml Neb) 0.5 mg INH RTBID [facility] Last Admin: 10/15/22 15:51 Dose: 0.5 mg Cholecalciferol (Cholecalciferol 400 Unit Tablet) 800 unit PO DAILY [facility] Last Admin: 10/15/22 11:59 Dose: Not Given Clonazepam (Clonazepam 0.5 Mg Tablet) 0.5 mg PO HS [facility] Last Admin: 10/14/22 22:06 Dose: 0.5 mg Fluticasone Propionate (Fluticasone Nasal [place]) 1 sprays [place] DAILY [facility] Last Admin: 10/15/22 11:59 Dose: Not Given Folic Acid (Folic Acid 1 Mg Tablet) 1 mg PO DAILY [facility] Last Admin: 10/15/22 11:59 Dose: Not Given Formoterol Fumarate (Formoterol Fumarate Neb 20 Mcg/2 Ml) 20 mcg INH RTBID [facility] Last Admin: 10/15/22 15:51 Dose: 20 mcg Guaifenesin (Guaifenesin 600 Mg Tablet) 600 mg PO BID [facility] Last Admin: 10/15/22 12:00 Dose: Not Given Sodium Chloride (Normal Saline 0.9%) 1,000 mls @ 83.333 mls/hr IV .Q12H [facility] Last Admin: 10/15/22 01:42 Dose: 83.333 mls/hr Ceftriaxone Sodium 1 gm/ (Sodium Chloride) 100 mls @ 200 mls/hr IV DAILY [facility] Stop: 10/20/22 08:59 Last Infusion: 10/15/22 09:50 Dose: Infused Insulin Human Lispro (Insulin Lispro 300 Unit/3 Ml Pen) 2 - 10 unit SUBQ 0800,1200,1700,2100 [facility]; Protocol Last Admin: 10/15/22 17:55 Dose: Not Given Lactobacillus Rhamnosus (Lactobacillus Rhamnosus Gg Capsule) 1 cap PO DAILY [facility] Last Admin: 10/15/22 12:00 Dose: Not Given Levothyroxine Sodium (Levothyroxine 75 Mcg Tablet) 75 mcg PO QDAC [facility] Last Admin: 10/15/22 07:18 Dose: Not Given Loratadine (Loratadine 10 Mg Tablet) 10 mg PO DAILY [facility] Last Admin: 10/15/22 12:00 Dose: Not Given Mineral Oil (Min Oil/Dimethicon/Coconut Oil 92 Gm Tube) 1 applic TOP PRN PRN PRN Reason: Skin Care Last Admin: 10/15/22 01:43 Dose: 1 applic Ondansetron HCl (Ondansetron 4 Mg/2 Ml Vial) 4 mg IVP Q4HR PRN PRN Reason: Nausea / Vomiting Oseltamivir Phosphate (Oseltamivir 75 Mg Capsule) 75 mg PO BID [facility] Last Admin: 10/15/22 12:01 Dose: Not Given Pantoprazole Sodium (Pantoprazole 40 Mg Tablet) 40 mg PO QDAC [facility] Last Admin: 10/15/22 07:18 Dose: Not Given Sodium Chloride (Sodium Chloride Flush 0.9% 10 Ml Syringe) 10 ml IVP 0100,0900,1700 [facility] Last Admin: 10/15/22 16:32 Dose: 10 ml Sodium Chloride (Sodium Chloride Flush 0.9% 10 Ml Syringe) 10 ml IVP PRN PRN PRN Reason: NEEDED PER PROVIDER ORDERS Sotalol HCl (Sotalol 80 Mg Tablet) 40 mg PO BID [facility] Last Admin: 10/15/22 12:02 Dose: Not Given Thiamine HCl (Thiamine 100 Mg Tablet) 100 mg PO DAILY [facility] Last Admin: 10/15/22 12:02 Dose: Not Given Vancomycin HCl (Vancomycin 125 Mg Capsule) 125 mg PO QID [facility] Last Admin: 10/15/22 17:56 Dose: Not Given Warfarin Sodium (Warfarin 2.5 Mg Tablet) 2.5 mg PO 1400 [facility] Last Admin: 10/15/22 14:07 Dose: Not Given Wheat Dextrin (Wheat Dextrin Powder Packet) 1 packet PO DAILY [facility] Last Admin: 10/15/22 12:03 Dose: Not Given Zinc Sulfate (Zinc Sulfate 220 Mg Capsule) 220 mg PO DAILY [facility] Last Admin: 10/15/22 12:03 Dose: Not Given Levothyroxine [Synthroid] 75 mcg PO QDAC 02/07/16 Sotalol HCl [Sotalol] 40 mg PO BID 02/07/16 Warfarin [Coumadin] 2.5 mg PO 02/07/16 clonazePAM [Clonazepam] 0.5 mg PO 02/07/16 Ascorbic Acid [Vitamin C] 1,000 mg PO DAILY 10/13/22 Cholecalciferol [Vitamin D3] 5,000 unit PO DAILY 10/13/22 Cranberry Fruit Extract [Cranberry] 500 mg PO DAILY 10/13/22 Lactobacillus Combination No.4 [Probiotic] 1 each PO DAILY 10/13/22 Trazodone HCl 100 mg PO 10/13/22 Exam: Temperature is 36.9. Heart rate 115. Blood pressure 173/83. Respirations 22. 99% saturated on 5 L OxiMax. Sleepy, withdrawn elderly female, coarse upper airway sounds with occasional rhonchi. Cough is weak, difficult to bring up phlegm. Nursing reports he is occasionally coughing when she swallows liquids. No JVD, Regular rate and rhythm Abdomen soft, nontender, bowel movements today, hypoactive is with incontinence and she is using a Browne catheter Oriented to person and place but very anhedonic, withdrawn. She has been bedbound or a wheelchair for years now. I am not sure why Urine culture from October 12 is with E. coli Blood cultures from October 12 are without any gross Laboratory Tests 10/15/22 10/15/22 10/15/22 05:03 05:03 05:03 WBC 18.2 H Hgb 13.5 Hct 40.3 Plt Count 433 Sodium 127 L Potassium 3.2 L Chloride 88 L BUN 7 Creatinine 0.5 Glucose 168 H B-Natriuretic Peptide 392 H Assesssment/Plan: 1. E coli UTI, Sensitive to all but gentamicin Remains on IV Rocephin. She now not tolerating po due to obtundation so I am holding a tray. Continue PRN antiemetics. 2. Hyponatremia Sodium is up from 122 and is 127 today, without change from yesterday Continues IVF. Will repeat labs in am. 3. Nausea/vomiting resolved. She is tolerating some po intake. Continue antiemetics PRN. 4. Influenza A Remains on Tamiflu. Continue droplet precautions. 5. COPD exacerbation because of persistent wheezes/diminished breath sounds on added budesonide/perforomist. I think she seems improved from previous description on exam but she can't say 6. Metabolic enceophalopathy waxing and waning. Much worse in am but clears by afternoon. Likely multifactorial from hyponatremia and infection. Improving slowly. Stop trazadone.Continue benzo at night. 7. DM2 BGs stable. Glucose yesterday 175, 239, 198, 167. Glucose today 183, 166, 149 no change of management. 8. Chronic a fib Rate controlled. Therapeutic INR 9. Generalized weakness WC bound at baseline. PT ordered but I may have to cancel if she won't cooperate or can't improve status. 10. Leukocytosis not improving Likely d/t acute infection/steroids. Will monitor for signs of new infection. 11. Diarrhea Taking culturelle. Adding fiber per dtr's request (she reportedly takes it at home on a daily basis to control diarrhea). C diff is positive and vancomycin po started last night by telemed. 12. Hypokalemia Repleting orally. check daily.
[2022-10-15] MEDS ORDERED: iohexoL-300 100 ML VIAL IVP ONE (21:00)
--- NOTE | 2022-10-15 21:07 | CT Report ---
PROCEDURE: HEAD WO INDICATIONS: loc TECHNIQUE: Noncontrast 4.5 mm thick angled axial sections acquired from the foramen magnum to the vertex. For r adiation dose reduction, the following was used: automated exposure control, adjustment of mA and/or kV according to patient size. COMPARISON: CT head 10/12/2022. FINDINGS: Image quality: Excellent. CSF spaces: There is moderate cerebral volume loss with prominence of the ventricles and sulci. Basa l cisterns are patent. No extra-axial fluid collections. Brain: No intracranial hemorrhage, mass, or mass effect. Tompkins-white matter interface is preserved. T here are subcortical and periventricular white matter hypodensities consistent with mild chronic smal l vessel ischemic changes. Skull and face: Calvarium and visualized facial bones are intact, without suspicious lesions. Sinuses: Visualized sinuses and mastoids are clear. IMPRESSION: 1. No acute intracranial abnormality. 2. Moderate cerebral volume loss and mild chronic white matter small vessel ischemic changes. Reviewed by: Chandrakant Silva MD on 10/15/2022 9:05 PM PST Approved by: Chandrakant Silva MD on 10/15/2022 9:05 PM PST Station ID: [id number]
[2022-10-15] MEDS: clonazePAM 0.5 MG TABLET PO SCH (21:16)
--- NOTE | 2022-10-15 22:09 | CT Report ---
PROCEDURE: ANGIO CHEST W/WO INDICATIONS: hypoxia CONTRAST: 80mL Omni 300 TECHNIQUE: After the administration of intravenous contrast, 2 mm axial images were acquired from the pulmonary apices to the posterior costophrenic angles during the arterial phase. In addition, 1 mm lung kernel and 5 mm soft tissue kernel reconstructions were performed. 3-dimensional coronal oblique maximum int ensity projection (MIP) reformats, 8 mm axial MIP, and 5 mm coronal and sagittal MPR reformats were t hen performed through the thorax. For radiation dose reduction, the following was used: automated exp osure control, adjustment of mA and/or kV according to patient size. COMPARISON: CT chest 03/25/2022 FINDINGS: Image quality: There is motion artifact and beam hardening artifact limiting evaluation. Pulmonary arteries: Pulmonary arteries are normal in size, and demonstrate no intraluminal filling d efects to suggest central pulmonary embolism. Evaluation of subsegmental branches is limited by motio n artifact and beam hardening artifact. Lower Neck: No lymphadenopathy by size criteria. Thyroid: Visualized thyroid demonstrates no discrete nodules. Axillae: No lymphadenopathy by size criteria. Chest Wall: Unremarkable. Bones: Visualized osseous structures demonstrate no suspicious lesions. Lungs and Airways: There are bilateral, with areas of consolidation in the lower lobes, right greate r than left. Clustered irregular nodules also demonstrated within the lower lobes as well as the righ t upper and middle lobes and left lingula. The findings are consistent with multifocal pneumonia. The distribution raises the possibility of aspiration. The trachea and central airways are patent. Pleura: No pneumothorax or pleural effusions. Heart: Heart size is normal. No pericardial effusion. Thoracic Vessels: The thoracic aorta is normal in size. Mediastinum and Yuli: No lymphadenopathy by size criteria. Esophagus: No wall thickening. No hiatal hernia. Abdomen: Visualized upper abdominal solid organs appear normal in the early arterial phase of enhanc ement. IMPRESSION: 1. No evidence of central pulmonary embolism, with evaluation of subsegmental branches limited by mot ion and beam hardening artifact. 2. Bibasilar consolidation as well as bilateral clustered irregular nodules with a basilar predominan ce. The findings are consistent with multifocal pneumonia with the distribution raising the possibili ty of aspiration. Reviewed by: Chandrakant Silva MD on 10/15/2022 10:07 PM PST Approved by: Chandrakant Silva MD on 10/15/2022 10:07 PM PST Station ID: [id number]
[2022-10-15] MEDS ORDERED: POTASSIUM CHLORIDE 20 MEQ TABLET PO ONE (22:28)
[2022-10-16] MEDS: SODIUM CHLORIDE 0.9% 1,000 ML IV SCH ×2 (01:04→12:21)
[2022-10-16 04:40] LABS: BASOPHILS % (AUTO) 0.2 %; EOSINOPHILS % (AUTO) 0.3 %; HCT - HEMATOCRIT 38.5 % (37.0-47.0); HGB - HEMOGLOBIN 12.8 g/dL (12.0-16.0); LYMPHOCYTES % (AUTO) 22.2 %; MEAN CORPUSCULAR HEMOGLOBIN 30.5 pg (27.0-31.0); MEAN CORPUSCULAR HGB CONC 33.2 g/dL (32.0-36.0); MEAN CORPUSCULAR VOLUME 91.7 fL (81.0-99.0); MEAN PLATELET VOLUME 9.9 fL (7.9-10.8); MONOCYTES % (AUTO) 11.8 %; NEUTROPHILS % (AUTO) 64.7 %; PLT - PLATELET COUNT 468 10^3/uL (130-450); RED CELL DISTRIBUTION WIDTH 12.9 % (12.0-15.0); WHITE BLOOD COUNT 20.4 x10^3/uL (4.8-10.8)
[2022-10-16 04:49] LABS: VBG PH 7.33 (7.31-7.41)
[2022-10-16 04:50] LABS: CALCIUM, IONIZED 1.03 mmol/L (1.15-1.33)
[2022-10-16 04:51] LABS: ABNORMAL LYMPHS % (MANUAL) 0 %; BAND NEUTROPHILS % (MANUAL) 0 %
[2022-10-16 04:52] LABS: INR 2.7 (0.8-1.2)
[2022-10-16 04:55] LABS: CALCIUM 8.2 mg/dL (8.5-10.3); CREATININE 0.7 mg/dL (0.4-1.0); POTASSIUM 4.4 mmol/L (3.5-5.0)
[2022-10-16 05:01] LABS: LYMPHOCYTES # (MANUAL) 4.9 10^3/uL (1.5-3.5); LYMPHOCYTES % (MANUAL) 24 %; MONOCYTES # (MANUAL) 1.6 10^3/uL (0.0-1.0); NEUTROPHILS # (MANUAL) 13.9 10^3/uL (1.5-6.6); RBC MORPHOLOGY (MULTIPLE) NORMAL APPEARANCE (NORMAL)
[2022-10-16 05:02] LABS: DIFFERENTIAL COMMENT MANUAL DIFFERENTIAL; PLATELET ESTIMATE, MANUAL INCREASED (>450,000) (NORMAL); PLATELET MORPHOLOGY NORMAL APPEARANCE (NORMAL); WBC MORPHOLOGY (MULTIPLE) NORMAL APPEARANCE (NORMAL)
[2022-10-16] MEDS ORDERED: CALCIUM GLUC 1,000MG/50ML-NACL 1,000 MG/50 ML BAG IV ONE (05:02)
[2022-10-16] MEDS: ALBUTEROL NEB 2.5 MG/3 ML INH PRN ×2 (05:42→13:28)
[2022-10-16] MEDS: BUDESONIDE 0.5 MG/2 ML NEB INH SCH ×2 (05:42→16:21)
[2022-10-16] MEDS: FORMOTEROL FUMARATE NEB 20 MCG/2 ML INH SCH ×2 (05:43→16:21)
[2022-10-16] MEDS: PANTOPRAZOLE 40 MG TABLET PO SCH (06:14)
[2022-10-16] MEDS: LEVOTHYROXINE 75 MCG TABLET PO SCH (06:14)
[2022-10-16] MEDS ORDERED: cefTRIAXone 1 GM VIAL ONE (08:45)
[2022-10-16] MEDS: INSULIN LISPRO 300 UNIT/3 ML PEN SUBQ SCH ×4 (09:14→21:20)
[2022-10-16] MEDS: cefTRIAXone 1 GM in SODIUM CHLORIDE 0.9% MINIBAG 100 ML IV SCH (09:15)
[2022-10-16] MEDS: ZINC SULFATE 220 MG CAPSULE PO SCH ×2 (09:16→09:19)
[2022-10-16] MEDS: guaiFENesin 600 MG TABLET PO SCH ×2 (09:16→21:16)
[2022-10-16] MEDS: NEUTRA-PHOS 250 MG TABLET PO SCH ×2 (09:16→12:18)
[2022-10-16] MEDS: OSELTAMIVIR 75 MG CAPSULE PO SCH ×2 (09:16→21:16)
[2022-10-16] MEDS: SOTALOL 80 MG TABLET PO SCH ×2 (09:17→21:16)
[2022-10-16] MEDS: THIAMINE 100 MG TABLET PO SCH (09:17)
[2022-10-16] MEDS: ASCORBIC ACID 500 MG TABLET PO SCH (09:17)
[2022-10-16] MEDS: CHOLECALCIFEROL 400 UNIT TABLET PO SCH (09:17)
[2022-10-16] MEDS: LORATADINE 10 MG TABLET PO SCH (09:19)
[2022-10-16] MEDS: LACTOBACILLUS RHAMNOSUS GG CAPSULE PO SCH (09:19)
[2022-10-16] MEDS: VANCOMYCIN 125 MG CAPSULE PO SCH ×4 (09:20→21:16)
[2022-10-16] MEDS: FOLIC ACID 1 MG TABLET PO SCH (09:20)
[2022-10-16] MEDS: WHEAT DEXTRIN POWDER PACKET PO SCH (09:20)
[2022-10-16] MEDS: SODIUM CHLORIDE FLUSH 0.9% 10 ML SYRINGE IVP SCH ×2 (09:21→16:43)
[2022-10-16] MEDS: FLUTICASONE NASAL SPRAY NAS SCH (09:29)
[2022-10-16] MEDS: WARFARIN 2.5 MG TABLET PO SCH (14:13)
--- NOTE | 2022-10-16 16:29 | PROVIDER PROGRESS NOTE ---
Progress Note October 16, 2022 4:23 PM I stopped the trazodone yesterday thinking that that was contributing to her morning sleepiness. The only thing she got last night was her Klonopin. She is very sleepy again this morning. She does open her eyes but really not talkative. I keep her on BiPAP at night. My thought process was that she was getting hypercapnic or somnolent and this was contributing to her encephalopathy. Even with BiPAP overnight, and me removing it this morning, there is not much improvement in her overall morning status. She tells me that "I am just tired, leave me alone". Is a day has gone on she is become increasingly more alert. She has become quite loud, demanding of nursing. Gets increasingly impatient if her needs such as a glass of water or not brought to her immediately. So her sleepiness tends to be only in the morning. Off of BiPAP she is on 2 L nasal cannula and maintaining O2 sats of 93 and as high as 96%. In speaking to the RN, she has gotten a larger history from the patient's daughter. The patient took to her bed many years ago. Approximately 4 to 5 years ago. She was suffering as a grief reaction from the of her son. She just stopped getting up. Her took care of her, would lift her up out of the bed and take her to get her bath, or lift her up and put her in the living room. But he did not make her get up. Over time she lost the physical ability to get up out of her bed. So there was no stroke, orthopedic injury, mechanical injury, or osteoarthritis that limits her. She uses a wheelchair at most. Because of coughing and choking with liquids yesterday, we held her tray. We did not want her to aspirate in the face of somnolence and food. But she became more awake, and we gave her food. She is tolerating that well. Active Medications Albuterol (Albuterol Neb 2.5 Mg/3 Ml) 2.5 mg INH Q4H PRN PRN Reason: Shortness of Air/Wheezing Last Admin: 10/16/22 13:28 Dose: 2.5 mg Ascorbic Acid (Ascorbic Acid 500 Mg Tablet) 500 mg PO DAILY [facility] Last Admin: 10/16/22 09:17 Dose: 500 mg Benzonatate (Benzonatate 100 Mg Capsule) 100 mg PO TID PRN PRN Reason: Cough Last Admin: 10/14/22 21:22 Dose: 100 mg Budesonide (Budesonide 0.5 Mg/2 Ml Neb) 0.5 mg INH RTBID [facility] Last Admin: 10/16/22 16:21 Dose: 0.5 mg Cholecalciferol (Cholecalciferol 400 Unit Tablet) 800 unit PO DAILY [facility] Last Admin: 10/16/22 09:17 Dose: 800 unit Clonazepam (Clonazepam 0.5 Mg Tablet) 0.5 mg PO HS [facility] Last Admin: 10/15/22 21:16 Dose: 0.5 mg Fluticasone Propionate (Fluticasone Nasal [place]) 1 sprays [place]NY DAILY [facility] Last Admin: 10/16/22 09:29 Dose: 1 spr Folic Acid (Folic Acid 1 Mg Tablet) 1 mg PO DAILY [facility] Last Admin: 10/16/22 09:20 Dose: 1 mg Formoterol Fumarate (Formoterol Fumarate Neb 20 Mcg/2 Ml) 20 mcg INH RTBID [facility] Last Admin: 10/16/22 16:21 Dose: 20 mcg Guaifenesin (Guaifenesin 600 Mg Tablet) 600 mg PO BID [facility] Last Admin: 10/16/22 09:16 Dose: 600 mg Sodium Chloride (Normal Saline 0.9%) 1,000 mls @ 83.333 mls/hr IV .Q12H [facility] Last Admin: 10/16/22 12:21 Dose: 83.333 mls/hr Ceftriaxone Sodium 1 gm/ (Sodium Chloride) 100 mls @ 200 mls/hr IV DAILY [facility] Stop: 10/20/22 08:59 Last Infusion: 10/16/22 09:55 Dose: Infused Insulin Human Lispro (Insulin Lispro 300 Unit/3 Ml Pen) 2 - 10 unit SUBQ 0800,1200,1700,2100 [facility]; Protocol Last Admin: 10/16/22 12:18 Dose: 2 unit Lactobacillus Rhamnosus (Lactobacillus Rhamnosus Gg Capsule) 1 cap PO DAILY [facility] Last Admin: 10/16/22 09:19 Dose: 1 cap Levothyroxine Sodium (Levothyroxine 75 Mcg Tablet) 75 mcg PO QDAC [facility] Last Admin: 10/16/22 06:14 Dose: 75 mcg Loratadine (Loratadine 10 Mg Tablet) 10 mg PO DAILY [facility] Last Admin: 10/16/22 09:19 Dose: 10 mg Mineral Oil (Min Oil/Dimethicon/Coconut Oil 92 Gm Tube) 1 applic TOP PRN PRN PRN Reason: Skin Care Last Admin: 10/15/22 01:43 Dose: 1 applic Ondansetron HCl (Ondansetron 4 Mg/2 Ml Vial) 4 mg IVP Q4HR PRN PRN Reason: Nausea / Vomiting Oseltamivir Phosphate (Oseltamivir 75 Mg Capsule) 75 mg PO BID [facility] Last Admin: 10/16/22 09:16 Dose: 75 mg Pantoprazole Sodium (Pantoprazole 40 Mg Tablet) 40 mg PO QDAC [facility] Last Admin: 10/16/22 06:14 Dose: 40 mg Sodium Chloride (Sodium Chloride Flush 0.9% 10 Ml Syringe) 10 ml IVP 0100,0900,1700 [facility] Last Admin: 10/16/22 09:21 Dose: 10 ml Sodium Chloride (Sodium Chloride Flush 0.9% 10 Ml Syringe) 10 ml IVP PRN PRN PRN Reason: NEEDED PER PROVIDER ORDERS Sotalol HCl (Sotalol 80 Mg Tablet) 40 mg PO BID [facility] Last Admin: 10/16/22 09:17 Dose: 40 mg Thiamine HCl (Thiamine 100 Mg Tablet) 100 mg PO DAILY [facility] Last Admin: 10/16/22 09:17 Dose: 100 mg Vancomycin HCl (Vancomycin 125 Mg Capsule) 125 mg PO QID [facility] Last Admin: 10/16/22 12:21 Dose: 125 mg Warfarin Sodium (Warfarin 2.5 Mg Tablet) 2.5 mg PO 1400 [facility] Last Admin: 10/16/22 14:13 Dose: 2.5 mg Wheat Dextrin (Wheat Dextrin Powder Packet) 1 packet PO DAILY [facility] Last Admin: 10/16/22 09:20 Dose: 1 packet Zinc Sulfate (Zinc Sulfate 220 Mg Capsule) 220 mg PO DAILY [facility] Last Admin: 10/16/22 09:19 Dose: 220 mg Exam: Temperature is 36.8. Heart rate 83. Blood pressure 134/53. Respirations can be high. She is as high as 26 this afternoon but was 22 before that. She is 96% saturated on 2 L. She is fully awake, alert, oriented to place and person but n ot time. Loud voice when speaking but otherwise withdrawn and flat She is 95 kg, 5 feet 3 inches tall Continues to have a phlegmy type of voice and she will cough but not really bring up phlegm Neck is supple Occasional rhonchi but no respiratory distress Regular rate and rhythm Is heard. I am not hearing irregular rate and rhythm but telemetry confirms A. fib Abdomen soft, nontender. Continuing to have bowel movements. She is slightly distended, with hypoactive bowel sounds. Continues to need a Browne Extremities have bruising of her hands, forearms. Laboratory Tests 10/12/22 10/16/22 10/16/22 16:45 04:25 04:25 WBC 20.4 H Hgb 12.8 Hct 38.5 Plt Count 468 H Sodium 130 L Potassium 4.4 Chloride 91 L BUN 9 Creatinine 0.7 Glucose 161 H Hemoglobin A1c % 7.5 H Assesssment/Plan: 1. E coli UTI, Sensitive to all but gentamicin Remains on IV Rocephin. Continue PRN antiemetics. 2. Hyponatremia Sodium is up from 122 and is 130 today. Continue IVF due to poor po intake.. Will repeat labs in am. 3. Nausea/vomiting resolved. She is tolerating some po intake. Continue antiemetics PRN. 4. Influenza A Remains on Tamiflu. Day #3 of 5. Continue droplet precautions. 5. COPD exacerbation because of persistent wheezes/diminished breath sounds on added budesonide/perforomist. I think she seems improved from previous description on exam but she can't say 6. Metabolic enceophalopathy waxing and waning. In my evaluation yesterday I thought of drugs, infection, stroke, PE, hypercapnia. I put her in the ICU October 15 and started on BiPAP to see if the hypercapnia would improve. While the hypercapnia did improve on blood gas, her overall metabolic encephalopathy did not. It is become clear that there is a pattern to sleepiness in the morning, better by afternoon. This just may be her baseline. Much worse in am but clears by afternoon. This happened yesterday and has happened today. Likely multifactorial from hyponatremia and infection. Improving slowly. I will continue to hold the trazodone. Continue to give the benzodiazepine. She has been on it for years I do not want to have a withdrawal effect from that. I had initially held her tray because of obtundation yesterday, so I am resuming that. Nutrition services will work with the patient to figure out what to give her since we worry about choking. 7. DM2 BGs stable. A1c shows just above 7%. Glucose yesterday 183, 166, 149, 245. Today 116, 173 no change of management. 8. Chronic a fib Rate controlled. Therapeutic INR 9. Generalized weakness WC bound at baseline. Her overall its been difficult to decide whether we should get physical therapy or not in this woman who has been bedbound for years now. She has no ambition, and daughter states that she can no longer take care of mom at home. Not in the states she sent. If the patient gets stronger and can at least stand to pivot, daughter would be able to take care of her better. So his daughter is asking us to place her in rehab. Aim for a goal of standing to pivot and transfer. Aim for a goal of being able to at least put on a blouse or pick pulling machine tender a T-shirt, and then she could take mom home. 10. Leukocytosis not improving Likely d/t acute infection/steroids. Will monitor for signs of new infection. 11. Diarrhea Taking culturelle. Adding fiber per dtr's request (she reportedly takes it at home on a daily basis to control diarrhea). C diff is positive and vancomycin po started 1/3 pm by telemed. 12. Hypokalemia Repleting orally as needed.. check daily.
[2022-10-16] MEDS: clonazePAM 0.5 MG TABLET PO SCH (21:15)
[2022-10-17] MEDS: SODIUM CHLORIDE FLUSH 0.9% 10 ML SYRINGE IVP SCH ×3 (00:50→16:58)
[2022-10-17] MEDS: SODIUM CHLORIDE 0.9% 1,000 ML IV SCH (01:13)
[2022-10-17 05:12] LABS: BASOPHILS % (AUTO) 0.3 %; EOSINOPHILS % (AUTO) 0.8 %; HCT - HEMATOCRIT 36.7 % (37.0-47.0); HGB - HEMOGLOBIN 11.9 g/dL (12.0-16.0); MEAN CORPUSCULAR HEMOGLOBIN 30.1 pg (27.0-31.0); MEAN CORPUSCULAR HGB CONC 32.4 g/dL (32.0-36.0); MEAN CORPUSCULAR VOLUME 92.9 fL (81.0-99.0); MEAN PLATELET VOLUME 9.8 fL (7.9-10.8); MONOCYTES % (AUTO) 11.8 %; NEUTROPHILS % (AUTO) 59.2 %; PLT - PLATELET COUNT 475 10^3/uL (130-450); RED BLOOD COUNT 3.95 10^6/uL (4.20-5.40); RED CELL DISTRIBUTION WIDTH 13.4 % (12.0-15.0); WHITE BLOOD COUNT 15.8 x10^3/uL (4.8-10.8)
[2022-10-17 05:14] LABS: CALCIUM, IONIZED 1.07 mmol/L (1.15-1.33); VBG PH 7.403 (7.31-7.41)
[2022-10-17 05:22] LABS: CALCIUM 8.2 mg/dL (8.5-10.3); CREATININE 0.7 mg/dL (0.4-1.0); POTASSIUM 3.9 mmol/L (3.5-5.0)
[2022-10-17 05:27] LABS: MAGNESIUM 1.9 mg/dL (1.7-2.8); PHOSPHORUS 2.9 mg/dL (2.5-4.6)
[2022-10-17 05:32] LABS: INR 2.2 (0.8-1.2)
[2022-10-17 05:50] LABS: ABNORMAL LYMPHS % (MANUAL) 0 %
[2022-10-17] MEDS ORDERED: POTASSIUM CHLORIDE 20 MEQ TABLET PO ONE (06:00)
[2022-10-17] MEDS: FORMOTEROL FUMARATE NEB 20 MCG/2 ML INH SCH ×2 (06:09→20:50)
[2022-10-17] MEDS: ALBUTEROL NEB 2.5 MG/3 ML INH PRN (06:09)
[2022-10-17] MEDS: BUDESONIDE 0.5 MG/2 ML NEB INH SCH ×2 (06:09→20:50)
[2022-10-17 06:14] LABS: BAND NEUTROPHILS % (MANUAL) 1 %; DIFFERENTIAL COMMENT MANUAL DIFFERENTIAL; LYMPHOCYTES # (MANUAL) 4.3 10^3/uL (1.5-3.5); LYMPHOCYTES % (MANUAL) 27 %; MONOCYTES # (MANUAL) 1.9 10^3/uL (0.0-1.0); NEUTROPHILS # (MANUAL) 9.6 10^3/uL (1.5-6.6); PLATELET ESTIMATE, MANUAL NORMAL (130-450,000) (NORMAL); RBC MORPHOLOGY (MULTIPLE) NORMAL APPEARANCE (NORMAL)
[2022-10-17] MEDS: PANTOPRAZOLE 40 MG TABLET PO SCH (06:52)
[2022-10-17] MEDS: LEVOTHYROXINE 75 MCG TABLET PO SCH (06:53)
[2022-10-17] MEDS: CALCIUM CARBONATE CHEW 500 MG TABLET PO SCH ×2 (06:54→11:50)
[2022-10-17] MEDS: INSULIN LISPRO 300 UNIT/3 ML PEN SUBQ SCH ×4 (08:54→20:20)
[2022-10-17] MEDS: FOLIC ACID 1 MG TABLET PO SCH (09:17)
[2022-10-17] MEDS: ASCORBIC ACID 500 MG TABLET PO SCH (09:17)
[2022-10-17] MEDS: LACTOBACILLUS RHAMNOSUS GG CAPSULE PO SCH (09:17)
[2022-10-17] MEDS: VANCOMYCIN 125 MG CAPSULE PO SCH ×4 (09:17→20:12)
[2022-10-17] MEDS: OSELTAMIVIR 75 MG CAPSULE PO SCH ×2 (09:18→20:12)
[2022-10-17] MEDS: SOTALOL 80 MG TABLET PO SCH ×2 (09:18→20:12)
[2022-10-17] MEDS: THIAMINE 100 MG TABLET PO SCH (09:19)
[2022-10-17] MEDS: guaiFENesin 600 MG TABLET PO SCH ×2 (09:19→20:12)
[2022-10-17] MEDS: WHEAT DEXTRIN POWDER PACKET PO SCH (09:19)
[2022-10-17] MEDS: CHOLECALCIFEROL 400 UNIT TABLET PO SCH (09:19)
[2022-10-17] MEDS: LORATADINE 10 MG TABLET PO SCH (09:19)
[2022-10-17] MEDS: cefTRIAXone 1 GM in SODIUM CHLORIDE 0.9% MINIBAG 100 ML IV SCH (09:25)
[2022-10-17] MEDS: MIN OIL/DIMETHICON/COCONUT OIL 92 GM TUBE TOP PRN (09:45)
[2022-10-17] MEDS: FLUTICASONE NASAL SPRAY NAS SCH (11:55)
[2022-10-17] MEDS: WARFARIN 2.5 MG TABLET PO SCH (13:17)
[2022-10-17] MEDS: BENZONATATE 100 MG CAPSULE PO PRN (15:02)
--- NOTE | 2022-10-17 18:41 | PROVIDER PROGRESS NOTE ---
Progress Note October 17, 2022 6:36 PM When I came onto the pelletier this morning around 7 in the morning, the night nurse tells me that she got her usual Klonopin. And this time it did not last this long. She was up by 3 in the morning. I am starting to see why this patient was on Klonopin and Seroquel at home. Then she went back to sleep and is deeply asleep this morning. And woke up again around 10 or 11 AM. Having her on BiPAP to see if I could reduce her PCO2 really has not made a difference in his waxing and waning sedation pattern. And asked the family to transfer the patient from the unit to [facility]. The patient herself says she is just tired. She does not want a work with PT. She does not want to get out of bed. She just hurts all over, and wants us to leave her alone. She is eating well. She eats anywhere between 75 to 100% of her food. Active Medications Albuterol (Albuterol Neb 2.5 Mg/3 Ml) 2.5 mg INH Q4H PRN PRN Reason: Shortness of Air/Wheezing Last Admin: 10/17/22 06:09 Dose: 2.5 mg Ascorbic Acid (Ascorbic Acid 500 Mg Tablet) 500 mg PO DAILY [facility] Last Admin: 10/17/22 09:17 Dose: 500 mg Benzonatate (Benzonatate 100 Mg Capsule) 100 mg PO TID PRN PRN Reason: Cough Last Admin: 10/17/22 15:02 Dose: 100 mg Budesonide (Budesonide 0.5 Mg/2 Ml Neb) 0.5 mg INH RTBID [facility] Last Admin: 10/17/22 06:09 Dose: 0.5 mg Cholecalciferol (Cholecalciferol 400 Unit Tablet) 800 unit PO DAILY [facility] Last Admin: 10/17/22 09:19 Dose: 800 unit Clonazepam (Clonazepam 0.5 Mg Tablet) 0.5 mg PO HS [facility] Last Admin: 10/16/22 21:15 Dose: 0.5 mg Fluticasone Propionate (Fluticasone Nasal [place]) 1 sprays [place] DAILY [facility] Last Admin: 10/17/22 11:55 Dose: 1 spr Folic Acid (Folic Acid 1 Mg Tablet) 1 mg PO DAILY [facility] Last Admin: 10/17/22 09:17 Dose: 1 mg Formoterol Fumarate (Formoterol Fumarate Neb 20 Mcg/2 Ml) 20 mcg INH RTBID [facility] Last Admin: 10/17/22 06:09 Dose: 20 mcg Guaifenesin (Guaifenesin 600 Mg Tablet) 600 mg PO BID [facility] Last Admin: 10/17/22 09:19 Dose: 600 mg Ceftriaxone Sodium 1 gm/ (Sodium Chloride) 100 mls @ 200 mls/hr IV DAILY [facility] Stop: 10/20/22 08:59 Last Infusion: 10/17/22 09:55 Dose: Infused Insulin Human Lispro (Insulin Lispro 300 Unit/3 Ml Pen) 2 - 10 unit SUBQ 0800,1200,1700,2100 [facility]; Protocol Last Admin: 10/17/22 16:57 Dose: 4 unit Lactobacillus Rhamnosus (Lactobacillus Rhamnosus Gg Capsule) 1 cap PO DAILY [facility] Last Admin: 10/17/22 09:17 Dose: 1 cap Levothyroxine Sodium (Levothyroxine 75 Mcg Tablet) 75 mcg PO QDAC [facility] Last Admin: 10/17/22 06:53 Dose: 75 mcg Loratadine (Loratadine 10 Mg Tablet) 10 mg PO DAILY [facility] Last Admin: 10/17/22 09:19 Dose: 10 mg Mineral Oil (Min Oil/Dimethicon/Coconut Oil 92 Gm Tube) 1 applic TOP PRN PRN PRN Reason: Skin Care Last Admin: 10/17/22 09:45 Dose: 1 applic Ondansetron HCl (Ondansetron 4 Mg/2 Ml Vial) 4 mg IVP Q4HR PRN PRN Reason: Nausea / Vomiting Oseltamivir Phosphate (Oseltamivir 75 Mg Capsule) 75 mg PO BID [facility] Last Admin: 10/17/22 09:18 Dose: 75 mg Pantoprazole Sodium (Pantoprazole 40 Mg Tablet) 40 mg PO QDAC [facility] Last Admin: 10/17/22 06:52 Dose: 40 mg Sodium Chloride (Sodium Chloride Flush 0.9% 10 Ml Syringe) 10 ml IVP 0100,0900,1700 [facility] Last Admin: 10/17/22 16:58 Dose: 10 ml Sodium Chloride (Sodium Chloride Flush 0.9% 10 Ml Syringe) 10 ml IVP PRN PRN PRN Reason: NEEDED PER PROVIDER ORDERS Sotalol HCl (Sotalol 80 Mg Tablet) 40 mg PO BID [facility] Last Admin: 10/17/22 09:18 Dose: 40 mg Thiamine HCl (Thiamine 100 Mg Tablet) 100 mg PO DAILY [facility] Last Admin: 10/17/22 09:19 Dose: 100 mg Vancomycin HCl (Vancomycin 125 Mg Capsule) 125 mg PO QID [facility] Last Admin: 10/17/22 16:58 Dose: 125 mg Warfarin Sodium (Warfarin 2.5 Mg Tablet) 2.5 mg PO 1400 [facility] Last Admin: 10/17/22 13:17 Dose: 2.5 mg Wheat Dextrin (Wheat Dextrin Powder Packet) 1 packet PO DAILY [facility] Last Admin: 10/17/22 09:19 Dose: 1 packet Zinc Sulfate (Zinc Sulfate 220 Mg Capsule) 220 mg PO DAILY [facility] Last Admin: 10/16/22 09:19 Dose: 220 mg Levothyroxine [Synthroid] 75 mcg PO QDAC 02/07/16 Sotalol HCl [Sotalol] 40 mg PO BID 02/07/16 Warfarin [Coumadin] 2.5 mg PO HS 02/07/16 clonazePAM [Clonazepam] 0.5 mg PO 02/07/16 Ascorbic Acid [Vitamin C] 1,000 mg PO DAILY 10/13/22 Cholecalciferol [Vitamin D3] 5,000 unit PO DAILY 10/13/22 Cranberry Fruit Extract [Cranberry] 500 mg PO DAILY 10/13/22 Lactobacillus Combination No.4 [Probiotic] 1 each PO DAILY 10/13/22 Trazodone HCl 100 mg PO HS 10/13/22 Exam: Temperature is 37, pulse 92, blood pressure 134/87, respirations 22, 93% saturated on 1 L. 5 foot 3 and female, 92 kg. Alert, oriented. Speech is impacted by having to constantly bring up phlegm and a phlegmy cough. But no respiratory distress. Lungs have coarse upper airway sounds but no respiratory distress, no rhonchi today. Regular rate and rhythm. She is supposed to be having A. fib on telemetry. Abdomen soft, nontender last bowel movement today. Extremities with trace edema. Neurologically she is alert, oriented, but really no ability to sit up on her own. She really does not want that and she wants us to help her sit up. She can move her legs in the bed, but she states she does not have the strength to sit up and stand. Again, refusing to work with physical therapy. Sodium 137, potassium 3.9, BUN 10, creatinine 0.7. Fasting glucose 144. White cell count 15.8, hemoglobin 11.9 Assesssment/Plan: 1. E coli UTI, Sensitive to all but gentamicin Remains on IV Rocephin. Day #4. Plan is to give 5 days so tomrrow is last day. Continue PRN antiemetics. 2. Hyponatremia Sodium is up from 122 and is 137 today. She is eating 100% of food at times. Stop IVF. 3. Nausea/vomiting resolved. She is tolerating some po intake. Continue antiemetics PRN. 4. Influenza A Remains on Tamiflu. Day #4 of 5. Tomorrow is the last day. Continue droplet precautions. 5. COPD exacerbation because of persistent wheezes/diminished breath sounds I added budesonide/perforomist. I think she seems improved from previous description on exam but she can't say 6. Metabolic enceophalopathy waxing and waning. In my evaluation I thought of drugs, infection, stroke, PE, hypercapnia. I put her in the ICU October 15 and started on BiPAP to see if the hypercapnia would improve. While the hypercapnia did improve on blood gas, her overall metabolic encephalopathy did not. It is become clear that there is a pattern to sleepiness in the morning, better by afternoon. This just may be her baseline. Much worse in am but clears by aft rodolfo. This happened 3 days in a row now. Likely multifactorial from hyponatremia and infection. Improving slowly. I will continue to hold the trazodone. Continue to give the benzodiazepine. She has been on it for years I do not want to have a withdrawal effect from that. I had initially held her food tray because of obtundation but I resumed her diet and she is eating well. Nutrition services will work with the patient to figure out what to give her since we worry about choking. 7. DM2 BGs stable. A1c shows just above 7%. Glucose stable. no change of management. 8. Chronic a fib Rate controlled. Therapeutic INR 9. Generalized weakness WC bound at baseline. Her overall its been difficult to decide whether we should get physical therapy or not in this woman who has been bedbound for years now. She has no ambition, and daughter states that she can no longer take care of mom at home. Not in the state she is in.. If the patient gets stronger and can at least stand to pivot, daughter would be able to take care of her better. So her daughter is asking us to place her in rehab. Aim for a goal of standing to pivot and transfer. Aim for a goal of being able to at least put on a blouse or socket puller a T-shirt, and then she could take mom home. Today, physical therapy really try to work with her, prompting her many times, but the patient flatly refuses. As such we have explained to the daughter that we cannot do Medicare certification and transfer her for rehab to halfway facility. The patient does have Medicaid so we are looking for a permanent placement bed with Medicaid Medicare. 10. Leukocytosis not improving Likely d/t acute infection/steroids. Will monitor for signs of new infection. 11. Diarrhea Taking culturelle. Adding fiber per dtr's request (she reportedly takes it at home on a daily basis to control diarrhea). C diff is positive and vancomycin po started 1/3 pm by telemed. 12. Hypokalemia Repleting orally as needed.. check daily.
[2022-10-17] MEDS: clonazePAM 0.5 MG TABLET PO SCH (20:12)
[2022-10-18] MEDS: SODIUM CHLORIDE FLUSH 0.9% 10 ML SYRINGE IVP SCH ×3 (01:03→16:57)
[2022-10-18] MEDS: MIN OIL/DIMETHICON/COCONUT OIL 92 GM TUBE TOP PRN ×3 (04:30→14:20)
[2022-10-18 05:10] LABS: CALCIUM, IONIZED 1.08 mmol/L (1.15-1.33); VBG PH 7.471 (7.31-7.41)
[2022-10-18 05:12] LABS: BASOPHILS % (AUTO) 0.4 %; EOSINOPHILS % (AUTO) 1.2 %; HCT - HEMATOCRIT 38.3 % (37.0-47.0); HGB - HEMOGLOBIN 12.4 g/dL (12.0-16.0); LYMPHOCYTES % (AUTO) 26.5 %; MEAN CORPUSCULAR HEMOGLOBIN 29.7 pg (27.0-31.0); MEAN CORPUSCULAR HGB CONC 32.4 g/dL (32.0-36.0); MEAN CORPUSCULAR VOLUME 91.6 fL (81.0-99.0); MEAN PLATELET VOLUME 9.4 fL (7.9-10.8); MONOCYTES % (AUTO) 10.8 %; NEUTROPHILS % (AUTO) 59.5 %; PLT - PLATELET COUNT 541 10^3/uL (130-450); RED BLOOD COUNT 4.18 10^6/uL (4.20-5.40); RED CELL DISTRIBUTION WIDTH 13.2 % (12.0-15.0); WHITE BLOOD COUNT 20.7 x10^3/uL (4.8-10.8)
[2022-10-18 05:14] LABS: ABNORMAL LYMPHS % (MANUAL) 0 %
[2022-10-18 05:17] LABS: INR 2.2 (0.8-1.2); PT - PROTHROMBIN TIME 23.7 secs (9.9-12.6)
[2022-10-18 05:18] LABS: CALCIUM 8.7 mg/dL (8.5-10.3); CREATININE 0.7 mg/dL (0.4-1.0); MAGNESIUM 1.6 mg/dL (1.7-2.8); PHOSPHORUS 3.5 mg/dL (2.5-4.6); POTASSIUM 4.3 mmol/L (3.5-5.0)
[2022-10-18] MEDS: BUDESONIDE 0.5 MG/2 ML NEB INH SCH ×2 (05:26→19:13)
[2022-10-18] MEDS: FORMOTEROL FUMARATE NEB 20 MCG/2 ML INH SCH ×2 (05:26→19:13)
[2022-10-18 05:36] LABS: BAND NEUTROPHILS % (MANUAL) 2 %; BASOPHILS # (MANUAL) 0.2 10^3/uL (0-0.1); BASOPHILS % (MANUAL) 1 %; DIFFERENTIAL COMMENT MANUAL DIFFERENTIAL; LYMPHOCYTES # (MANUAL) 4.8 10^3/uL (1.5-3.5); LYMPHOCYTES % (MANUAL) 23 %; MONOCYTES # (MANUAL) 1.7 10^3/uL (0.0-1.0); NEUTROPHILS # (MANUAL) 14.1 10^3/uL (1.5-6.6); PLATELET ESTIMATE, MANUAL INCREASED (>450,000) (NORMAL); RBC MORPHOLOGY (MULTIPLE) NORMAL APPEARANCE (NORMAL)
[2022-10-18] MEDS: PANTOPRAZOLE 40 MG TABLET PO SCH (06:50)
[2022-10-18] MEDS: LEVOTHYROXINE 75 MCG TABLET PO SCH (06:51)
[2022-10-18] MEDS: cefTRIAXone 1 GM in SODIUM CHLORIDE 0.9% MINIBAG 100 ML IV SCH (08:19)
[2022-10-18] MEDS: guaiFENesin 600 MG TABLET PO SCH ×2 (08:24→20:40)
[2022-10-18] MEDS: VANCOMYCIN 125 MG CAPSULE PO SCH ×4 (08:24→20:41)
[2022-10-18] MEDS: ZINC SULFATE 220 MG CAPSULE PO SCH (08:24)
[2022-10-18] MEDS: SOTALOL 80 MG TABLET PO SCH ×2 (08:24→20:41)
[2022-10-18] MEDS: OSELTAMIVIR 75 MG CAPSULE PO SCH (08:24)
[2022-10-18] MEDS: LACTOBACILLUS RHAMNOSUS GG CAPSULE PO SCH (08:24)
[2022-10-18] MEDS: FOLIC ACID 1 MG TABLET PO SCH (08:25)
[2022-10-18] MEDS: LORATADINE 10 MG TABLET PO SCH (08:25)
[2022-10-18] MEDS: THIAMINE 100 MG TABLET PO SCH (08:25)
[2022-10-18] MEDS: CHOLECALCIFEROL 400 UNIT TABLET PO SCH (08:25)
[2022-10-18] MEDS: ASCORBIC ACID 500 MG TABLET PO SCH (08:25)
[2022-10-18] MEDS: FLUTICASONE NASAL SPRAY NAS SCH (08:26)
[2022-10-18] MEDS: INSULIN LISPRO 300 UNIT/3 ML PEN SUBQ SCH ×4 (08:26→20:40)
[2022-10-18] MEDS: WHEAT DEXTRIN POWDER PACKET PO SCH (08:27)
[2022-10-18] MEDS: WARFARIN 2.5 MG TABLET PO SCH (14:10)
--- NOTE | 2022-10-18 14:59 | PROVIDER PROGRESS NOTE ---
Progress Note October 18, 2022 2:53 PM Mostly withdrawn, lethargic elderly female. Morbidly obese. Flatly refuses to work with physical therapy. As such, she does not meet the ability to have Medicare certification to do rehab for physical rehab. And our plan is now for her to be transition to long-term detention facility placement. She has Medicaid, Medicare. Social work and case management have sent information to various facilities and we are now waiting to hear. She gets very sleepy in the morning. Takes quite a bit to wake her up. Such as this morning. She was chcf upright in the bed, snoring, and when I touch her shoulder no response. Had to shake her a couple of times to get her to open her eyes. She is oriented to place, person. Denies any new pain. She just said that her back hurts, and butt hurts from being in a hospital bed. No chest pain, cough, shortness of breath. Eating 75% of food. At times of 200% of fo ods. Active Medications Albuterol (Albuterol Neb 2.5 Mg/3 Ml) 2.5 mg INH Q4H PRN PRN Reason: Shortness of Air/Wheezing Last Admin: 10/17/22 06:09 Dose: 2.5 mg Ascorbic Acid (Ascorbic Acid 500 Mg Tablet) 500 mg PO DAILY [facility] Last Admin: 10/18/22 08:25 Dose: 500 mg Benzonatate (Benzonatate 100 Mg Capsule) 100 mg PO TID PRN PRN Reason: Cough Last Admin: 10/17/22 15:02 Dose: 100 mg Budesonide (Budesonide 0.5 Mg/2 Ml Neb) 0.5 mg INH RTBID [facility] Last Admin: 10/18/22 05:26 Dose: Not Given Cholecalciferol (Cholecalciferol 400 Unit Tablet) 800 unit PO DAILY [facility] Last Admin: 10/18/22 08:25 Dose: 800 unit Clonazepam (Clonazepam 0.5 Mg Tablet) 0.5 mg PO HS [facility] Last Admin: 10/17/22 20:12 Dose: 0.5 mg Fluticasone Propionate (Fluticasone Nasal [place]) 1 sprays [place]NY DAILY [facility] Last Admin: 10/18/22 08:26 Dose: 1 spr Folic Acid (Folic Acid 1 Mg Tablet) 1 mg PO DAILY [facility] Last Admin: 10/18/22 08:25 Dose: 1 mg Formoterol Fumarate (Formoterol Fumarate Neb 20 Mcg/2 Ml) 20 mcg INH RTBID [facility] Last Admin: 10/18/22 05:26 Dose: Not Given Guaifenesin (Guaifenesin 600 Mg Tablet) 600 mg PO BID [facility] Last Admin: 10/18/22 08:24 Dose: 600 mg Ceftriaxone Sodium 1 gm/ (Sodium Chloride) 100 mls @ 200 mls/hr IV DAILY [facility] Stop: 10/20/22 08:59 Last Infusion: 10/18/22 08:49 Dose: Infused Insulin Human Lispro (Insulin Lispro 300 Unit/3 Ml Pen) 2 - 10 unit SUBQ 0800,1200,1700,2100 [facility]; Protocol Last Admin: 10/18/22 12:28 Dose: 4 unit Lactobacillus Rhamnosus (Lactobacillus Rhamnosus Gg Capsule) 1 cap PO DAILY [facility] Last Admin: 10/18/22 08:24 Dose: 1 cap Levothyroxine Sodium (Levothyroxine 75 Mcg Tablet) 75 mcg PO QDAC [facility] Last Admin: 10/18/22 06:51 Dose: 75 mcg Loratadine (Loratadine 10 Mg Tablet) 10 mg PO DAILY [facility] Last Admin: 10/18/22 08:25 Dose: 10 mg Mineral Oil (Min Oil/Dimethicon/Coconut Oil 92 Gm Tube) 1 applic TOP PRN PRN PRN Reason: Skin Care Last Admin: 10/18/22 14:20 Dose: 1 applic Ondansetron HCl (Ondansetron 4 Mg/2 Ml Vial) 4 mg IVP Q4HR PRN PRN Reason: Nausea / Vomiting Pantoprazole Sodium (Pantoprazole 40 Mg Tablet) 40 mg PO QDAC [facility] Last Admin: 10/18/22 06:50 Dose: 40 mg Sodium Chloride (Sodium Chloride Flush 0.9% 10 Ml Syringe) 10 ml IVP 0100,0900,1700 [facility] Last Admin: 10/18/22 08:27 Dose: 10 ml Sodium Chloride (Sodium Chloride Flush 0.9% 10 Ml Syringe) 10 ml IVP PRN PRN PRN Reason: NEEDED PER PROVIDER ORDERS Sotalol HCl (Sotalol 80 Mg Tablet) 40 mg PO BID [facility] Last Admin: 10/18/22 08:24 Dose: 40 mg Thiamine HCl (Thiamine 100 Mg Tablet) 100 mg PO DAILY [facility] Last Admin: 10/18/22 08:25 Dose: 100 mg Vancomycin HCl (Vancomycin 125 Mg Capsule) 125 mg PO QID [facility] Last Admin: 10/18/22 12:28 Dose: 125 mg Warfarin Sodium (Warfarin 2.5 Mg Tablet) 2.5 mg PO 1400 [facility] Last Admin: 10/18/22 14:10 Dose: 2.5 mg Wheat Dextrin (Wheat Dextrin Powder Packet) 1 packet PO DAILY [facility] Last Admin: 10/18/22 08:27 Dose: 1 packet Zinc Sulfate (Zinc Sulfate 220 Mg Capsule) 220 mg PO DAILY [facility] Last Admin: 10/18/22 08:24 Dose: 220 mg Levothyroxine [Synthroid] 75 mcg PO QDAC 02/07/16 Sotalol HCl [Sotalol] 40 mg PO BID 02/07/16 Warfarin [Coumadin] 2.5 mg PO HS 02/07/16 clonazePAM [Clonazepam] 0.5 mg PO 02/07/16 Ascorbic Acid [Vitamin C] 1,000 mg PO DAILY 10/13/22 Cholecalciferol [Vitamin D3] 5,000 unit PO DAILY 10/13/22 Cranberry Fruit Extract [Cranberry] 500 mg PO DAILY 10/13/22 Lactobacillus Combination No.4 [Probiotic] 1 each PO DAILY 10/13/22 Trazodone HCl 100 mg PO 10/13/22 Exam: Temperature 37.3. Blood pressure 187/54 this morning. Continues to be high at 181/76 this afternoon. It was done in the other arm and she is 170/62. Respirations are 22, and 95% saturated on 1 L. She is 5 feet 3 inches tall, 93 kg, moderately obese. Supple neck Clear lungs. No respiratory distress. Diminished at the bases. Regular rate and rhythm Abdomen soft, nontender, and last bowel movement was October 16. Santos catheter, clear yellow urine Extremities without edema. Neurologically oriented to person and place. Not to time. Can follow commands. Mildly hard of hearing. Appears very withdrawn at times. But other times gets irritated and angry and in a loud voice will be demanding. That happens maybe once or twice a day. This is in contradistinction to the severe sleepiness she has first thing in the morning. She can move her legs, but they are not strong enough to get her to stand up. Uses upper extremities to feed herself. Sodium was 134, potassium 4.3, BUN 12, creatinine 0.7, glucose 190 6 white cell count 20.7, hemoglobin 12.4, platelets 541 Assesssment/Plan: 1. E coli UTI, Sensitive to all but gentamicin Remains on IV Rocephin. Day #5. Plan is to give 5 days so today is last day. Continue PRN antiemetics. Dimitris santos. 2. Hyponatremia Sodium is up from 122 and is 134 today. She is eating well. Off IV since 10/17. 3. Nausea/vomiting resolved. She is tolerating some po intake. Continue antiemetics PRN. 4. Influenza A Remains on Tamiflu. Day #5. Today is the last day. Continue droplet precautions. 5. COPD exacerbation because of persistent wheezes/diminished breath sounds I added budesonide/perf oromist. I think she seems improved from previous description on exam but she can't say 6. Metabolic enceophalopathy waxing and waning. Manifested as excessive sleepiness and difficulty to arouse especially in the mornings. In my evaluation I thought of drugs, infection, stroke, PE, hypercapnia. I put her in the ICU October 15 and started on BiPAP to see if the hypercapnia would improve. While the hypercapnia did improve on blood gas, her overall metabolic encephalopathy did not. It is become clear that there is a pattern to sleepiness in the morning, better by afternoon. This just may be her baseline. Much worse in am but clears by afternoon. This happened 3 days in a row now. Likely multifactorial from hyponatremia and infection. Improving slowly. I will continue to hold the trazodone. Continue to give the benzodiazepine. She has been on it for years I do not want to have a withdrawal effect from that. I had initially held her food tray because of obtundation but I resumed her diet and she is eating well. Nutrition services will work with the patient to figure out what to give her since we worry about choking. 7. DM2 BGs stable. A1c shows just above 7%. Glucose stable. no change of management. 8. Chronic a fib Rate controlled. Therapeutic INR 9. Generalized weakness WC bound at baseline. Her overall its been difficult to decide whether we should get physical therapy or not in this woman who has been bedbound for years now. She has no ambition, and daughter states that she can no longer take care of mom at home. Not in the state she is in.. If the patient gets stronger and can at least stand to pivot, daughter would be able to take care of her better. So her daughter is asking us to place her in rehab. Aim for a goal of standing to pivot and transfer. Aim for a goal of being able to at least put on a blouse or plant puller a T-shirt, and then she could take mom home. Today, physical therapy really try to work with her, prompting her many times, but the patient flatly refuses. As such we have explained to the daughter that we cannot do Medicare certification and transfer her for rehab to detention facility. The patient does have Medicaid so we are looking for a permanent placement bed with Medicaid Medicare. 10. Leukocytosis not improving Likely d/t acute infection/steroids. Will monitor for signs of new infection. 11. C dif Diarrhea Taking culturelle. Adding fiber per dtr's request (she reportedly takes it at home on a daily basis to control diarrhea). C diff is positive and vancomycin po started 1/3 pm by telemed. Today is Day#4. 12. Hypokalemia Repleting orally as needed.. check daily. 13. Hypertension. She is on sotalol for her afib. Rate is controlled. add losartan
[2022-10-18] MEDS: LOSARTAN 50 MG TABLET PO SCH (16:43)
[2022-10-18] MEDS: clonazePAM 0.5 MG TABLET PO SCH (20:41)
[2022-10-18] MEDS: BENZONATATE 100 MG CAPSULE PO PRN (20:41)
[2022-10-19] MEDS: SODIUM CHLORIDE FLUSH 0.9% 10 ML SYRINGE IVP SCH ×4 (01:00→21:43)
[2022-10-19] MEDS: MIN OIL/DIMETHICON/COCONUT OIL 92 GM TUBE TOP PRN (04:29)
[2022-10-19] MEDS: BENZONATATE 100 MG CAPSULE PO PRN ×2 (04:31→20:00)
[2022-10-19] MEDS: FORMOTEROL FUMARATE NEB 20 MCG/2 ML INH SCH ×2 (05:29→19:28)
[2022-10-19] MEDS: BUDESONIDE 0.5 MG/2 ML NEB INH SCH ×2 (05:29→19:28)
[2022-10-19] MEDS: LEVOTHYROXINE 75 MCG TABLET PO SCH (05:32)
[2022-10-19] MEDS: PANTOPRAZOLE 40 MG TABLET PO SCH (05:32)
[2022-10-19 05:38] LABS: CALCIUM, IONIZED 1.12 mmol/L (1.15-1.33); VBG PH 7.454 (7.31-7.41)
[2022-10-19 05:47] LABS: MAGNESIUM 1.7 mg/dL (1.7-2.8); PHOSPHORUS 4.5 mg/dL (2.5-4.6)
[2022-10-19] MEDS: ZINC SULFATE 220 MG CAPSULE PO SCH (08:02)
[2022-10-19] MEDS: THIAMINE 100 MG TABLET PO SCH (08:02)
[2022-10-19] MEDS: INSULIN LISPRO 300 UNIT/3 ML PEN SUBQ SCH ×4 (08:02→21:40)
[2022-10-19] MEDS: LORATADINE 10 MG TABLET PO SCH (08:03)
[2022-10-19] MEDS: LOSARTAN 50 MG TABLET PO SCH (08:03)
[2022-10-19] MEDS: CHOLECALCIFEROL 400 UNIT TABLET PO SCH (08:03)
[2022-10-19] MEDS: ASCORBIC ACID 500 MG TABLET PO SCH (08:03)
[2022-10-19] MEDS: FOLIC ACID 1 MG TABLET PO SCH (08:03)
[2022-10-19] MEDS: FLUTICASONE NASAL SPRAY NAS SCH (08:03)
[2022-10-19] MEDS: LACTOBACILLUS RHAMNOSUS GG CAPSULE PO SCH (08:03)
[2022-10-19] MEDS: VANCOMYCIN 125 MG CAPSULE PO SCH ×4 (08:03→21:39)
[2022-10-19] MEDS: guaiFENesin 600 MG TABLET PO SCH ×2 (08:03→21:38)
[2022-10-19] MEDS: SOTALOL 80 MG TABLET PO SCH ×2 (08:03→21:38)
[2022-10-19] MEDS: WHEAT DEXTRIN POWDER PACKET PO SCH (08:04)
--- NOTE | 2022-10-19 12:31 | PROVIDER PROGRESS NOTE ---
Progress Note October 19, 2022 12:20 PM I saw her this morning after she been up in a chair, had her breakfast, and nursing put her back in bed. Nursing reports that she was not happy about having to get out of bed and sit up. When I saw her she was coughing, denied any new complaints. Temperature is 36.7, heart rate 82. Blood pressure 149/67, respirations 20, 1 L required to saturate 92% Overweight white female, looks younger than stated age Voice slightly hoarse, cough is dry, nonproductive Lungs have coarse upper airway sounds but no tachypnea, crackles or rhonchi Regular rate and rhythm Abdomen obese, soft, nontender. Last BM October 17. Incontinent of urine and using a pure wick in pad Alert, oriented, able to express herself, hard of hearing. No focal deficits. Her weakness has been, from what the story is, self-induced. She went to bed 4 years ago when her son and has refused to get up and get out. No labs today. White cell count has been consistently elevated her entire stay. She was admitted 22.8, and she was 20.7 on October 18. Assesssment/Plan: 1. E coli UTI, Sensitive to all but gentamicin s/p 5 days of rocephin which ended 10/18. Santos out 10/18. Continue PRN antiemetics. Dimitris santos. 2. Hyponatremia Sodium is up from 122 >>134 last check. She is eating well. Off IV since 10/17. 3. Nausea/vomiting resolved. She is tolerating some po intake. Continue antiemetics PRN. 4. Influenza A s/p 5 days of tamiflu which ended 10/18. Continue droplet precautions. 5. COPD exacerbation because of persistent wheezes/diminished breath sounds I added budesonide/perforomist. I think she seems improved from previous description on exam but she can't say 6. Metabolic enceophalopathy waxing and waning. Manifested as excessive sleepiness and difficulty to arouse especially in the mornings. In my evaluation I thought of drugs, infection, stroke, PE, hypercapnia. I put her in the ICU October 15 and started on BiPAP to see if the hypercapnia would improve. While the hypercapnia did improve on blood gas, her overall metabolic encephalopathy did not. It is become clear that there is a pattern to sleepiness in the m orning, better by afternoon. This just may be her baseline. Much worse in am but clears by afternoon. This happened 3 days in a row now. Likely multifactorial from hyponatremia and infection. Improving slowly. I will continue to hold the trazodone. Continue to give the benzodiazepine. She has been on it for years I do not want to have a withdrawal effect from that. I had initially held her food tray because of obtundation but I resumed her diet and she is eating well. Nutrition services worked with the patient to figure out what to give her since we worried about choking and she is on a dysphagia puree diet. 7. DM2 BGs stable. A1c shows just above 7%. Glucose stable. no change of management. 8. Chronic a fib Rate controlled. Therapeutic INR 9. Generalized weakness WC bound at baseline. Her overall its been difficult to decide whether we should get physical therapy or not in this woman who has been bedbound for years now. She has no ambition, and daughter states that she can no longer take care of mom at home. Not in the state she is in.. If the patient gets stronger and can at least stand to pivot, daughter would be able to take care of her better. So her daughter is asking us to place her in rehab. Aim for a goal of standing to pivot and transfer. Aim for a goal of being able to at least put on a blouse or plant puller a T-shirt, and then she could take mom home. physical therapy really tried to work with her with those goals in mind, prompting her many times, but the patient flatly refuses. As such we have explained to the daughter and the patient that we cannot do Medicare certification and transfer her for rehab to assisted facility. The patient does have Medicaid so we are looking for a permanent placement bed with Medicaid Medicare. 10. Leukocytosis not improving Likely d/t acute infection/steroids. Will monitor for signs of new infection. 11. C dif Diarrhea Taking culturelle. Adding fiber per dtr's request (she reportedly takes it at home on a daily basis to control diarrhea). C diff is positive and vancomycin po started 1/3 pm by telemed. Today is Day#5. 12. Hypokalemia Repleting orally as needed.. check daily. 13. Hypertension. She is on sotalol for her afib. Rate is controlled. I added losartan 10/18 since BP too high. 149/67 today.
[2022-10-19] MEDS: WARFARIN 2.5 MG TABLET PO SCH (12:49)
[2022-10-19] MEDS: clonazePAM 0.5 MG TABLET PO SCH (21:39)
[2022-10-20] MEDS: PANTOPRAZOLE 40 MG TABLET PO SCH (06:35)
[2022-10-20] MEDS: LEVOTHYROXINE 75 MCG TABLET PO SCH (06:35)
[2022-10-20] MEDS: SODIUM CHLORIDE FLUSH 0.9% 10 ML SYRINGE IVP SCH ×2 (07:47→17:06)
[2022-10-20] MEDS: MIN OIL/DIMETHICON/COCONUT OIL 92 GM TUBE TOP PRN ×2 (07:47→13:16)
[2022-10-20] MEDS: INSULIN LISPRO 300 UNIT/3 ML PEN SUBQ SCH ×4 (07:48→20:44)
[2022-10-20] MEDS: polyethylene glycoL 3350 17 GM PACKET PO SCH (07:48)
[2022-10-20] MEDS: FLUTICASONE NASAL SPRAY NAS SCH (07:48)
[2022-10-20] MEDS: VANCOMYCIN 125 MG CAPSULE PO SCH ×4 (08:53→20:42)
[2022-10-20] MEDS: ZINC SULFATE 220 MG CAPSULE PO SCH (08:53)
[2022-10-20] MEDS: guaiFENesin 600 MG TABLET PO SCH ×2 (08:53→20:43)
[2022-10-20] MEDS: ASCORBIC ACID 500 MG TABLET PO SCH (08:53)
[2022-10-20] MEDS: CHOLECALCIFEROL 400 UNIT TABLET PO SCH (08:53)
[2022-10-20] MEDS: SOTALOL 80 MG TABLET PO SCH ×2 (08:53→20:43)
[2022-10-20] MEDS: LORATADINE 10 MG TABLET PO SCH (08:53)
[2022-10-20] MEDS: THIAMINE 100 MG TABLET PO SCH (08:53)
[2022-10-20] MEDS: LOSARTAN 50 MG TABLET PO SCH (08:54)
[2022-10-20] MEDS: WHEAT DEXTRIN POWDER PACKET PO SCH (08:54)
[2022-10-20] MEDS: LACTOBACILLUS RHAMNOSUS GG CAPSULE PO SCH (08:54)
[2022-10-20] MEDS: FOLIC ACID 1 MG TABLET PO SCH (08:54)
[2022-10-20] MEDS: WARFARIN 2.5 MG TABLET PO SCH (13:16)
[2022-10-20] MEDS: BUDESONIDE 0.5 MG/2 ML NEB INH SCH ×2 (16:29→19:50)
[2022-10-20] MEDS: FORMOTEROL FUMARATE NEB 20 MCG/2 ML INH SCH ×2 (16:30→19:50)
--- NOTE | 2022-10-20 16:36 | PROVIDER PROGRESS NOTE ---
Progress Note Sage 07/01/2023 4:30 PM We are just waiting. We are holding pattern as we wait for placement for this lady. She has no new complaints. She is pretty unhappy this morning. Nursing was fairly firm and requesting her to get out of bed. They had her sit in a chair for breakfast. And after breakfast she was able to get back in bed. She really does not like getting out of bed. Other than that she denies chest pain, palpitations, shortness of breath Temperature 37, heart rate 78, blood pressure 125/42, respirations 20, 92% on room air 5 feet 3 inches tall, 93.5 kg Morbidly obese white female who she looks younger than stated age Neck is supple Lungs have diminished sounds at the bases, but no respiratory distress. An occasional cough that is productive of clear phlegm. Regular rate and rhythm Abdomen is soft, nontender. She ate 50% of breakfast and lunch. 75% of dinner last night. Last bowel movement was today. She is incontinent of urine and is using a brief/diaper as well as pure wick. Extremities are without edema. She is able to move her legs. Hard of hearing, but alert and oriented to person place and time. Forgetful at times. But very able to voice her concerns, discomfort, and desires No labs since October 18 Glucose today is 164, 147 No acute problems for now. [place] addressed during her stay: 1. E coli UTI, Sensitive to all but gentamicin s/p 5 days of rocephin which ended 10/18. Santos out 10/18. Continue PRN antiemetics. Dimitris santos. 2. Hyponatremia Sodium is up from 122 >>134 last check. She is eating well. Off IV since 10/17. Will order labs for tomorrow 3. Nausea/vomiting resolved. She is tolerating some po intake. Continue antiemetics PRN. 4. Influenza A s/p 5 days of tamiflu which ended 10/18. Continue droplet precautions. 5. COPD exacerbation because of persistent wheezes/diminished breath sounds I added budesonide/perforomist. I think she seems improved from previous description on exam but she can't say 6. Metabolic enceophalopathy waxing and waning. Manifested as excessive sleepiness and difficulty to arouse especially in the mornings. In my evaluation I thought of drugs, infection, stroke, PE, hypercapnia. I put her in the ICU October 15 and started on BiPAP to see if the hypercapnia would improve. While the hypercapnia did improve on blood gas, her overall metabolic encephalopathy did not. It is become clear that there is a pattern to sleepiness in the morning, better by afternoon. This just may be her baseline. Much worse in am but clears by afternoon. This happened 3 days in a row now. Likely multifactorial from hyponatremia and infection. Improving slowly. I will continue to hold the trazodone. Continue to give the benzodiazepine. She has been on it for years I do not want to have a withdrawal effect from that. I had initially held her food tray because of obtundation but I resumed her diet and she is eating well. Nutrition services worked with the patient to figure out what to give her since we worried about choking and she is on a dysphagia puree diet. 7. DM2 BGs stable. A1c shows just above 7%. Glucose stable. no change of management. 8. Chronic a fib Rate controlled. Therapeutic INR 9. Generalized weakness WC bound at baseline. Her overall its been difficult to decide whether we should get physical therapy or not in this woman who has been bedbound for years now. She has no ambition, and daughter states that she can no longer take care of mom at home. Not in the state she is in.. If the patient gets stronger and can at least stand to pivot, daughter would be able to take care of her better. So her daughter is asking us to place her in rehab. Aim for a goal of standing to pivot and transfer. Aim for a goal of being able to at least put on a blouse or rib puller a T-shirt, and then she could take mom home. physical therapy really tried to work with her with those goals in mind, prompting her many times, but the patient flatly refuses. As such we have explained to the daughter and the patient that we cannot do Medicare certification and transfer her for rehab to group home facility. The patient does have Medicaid so we are looking for a permanent placement bed with Medicaid Medicare. 10. Leukocytosis not improving Likely d/t acute infection/steroids. Will monitor for signs of new infection. 11. C dif Diarrhea Taking culturelle. Adding fiber per dtr's request (she reportedly takes it at home on a daily basis to control diarrhea). C diff is positive and vancomycin po started 1/3 pm by telemed. Today is Day#5. 12. Hypokalemia Repleting orally as needed.. check in am. 13. Hypertension. She is on sotalol for her afib. Rate is controlled. I added losartan 10/18 since BP too high. 125/42 today.
[2022-10-20] MEDS: ALBUTEROL NEB 2.5 MG/3 ML INH PRN (19:50)
[2022-10-20] MEDS: clonazePAM 0.5 MG TABLET PO SCH (20:43)
[2022-10-21] MEDS: SODIUM CHLORIDE FLUSH 0.9% 10 ML SYRINGE IVP SCH ×3 (01:00→17:19)
[2022-10-21 04:59] LABS: BASOPHILS % (AUTO) 0.5 %; EOSINOPHILS % (AUTO) 0.7 %; HCT - HEMATOCRIT 39.7 % (37.0-47.0); LYMPHOCYTES % (AUTO) 33.9 %; MEAN CORPUSCULAR HEMOGLOBIN 29.8 pg (27.0-31.0); MEAN CORPUSCULAR HGB CONC 32.7 g/dL (32.0-36.0); MEAN CORPUSCULAR VOLUME 91.1 fL (81.0-99.0); MEAN PLATELET VOLUME 9.7 fL (7.9-10.8); MONOCYTES % (AUTO) 8.6 %; NEUTROPHILS % (AUTO) 55.6 %; PLT - PLATELET COUNT 493 10^3/uL (130-450); RED BLOOD COUNT 4.36 10^6/uL (4.20-5.40); RED CELL DISTRIBUTION WIDTH 13.2 % (12.0-15.0); WHITE BLOOD COUNT 16.9 x10^3/uL (4.8-10.8)
[2022-10-21 05:07] LABS: CALCIUM 9.2 mg/dL (8.5-10.3); CREATININE 0.7 mg/dL (0.4-1.0); POTASSIUM 4.6 mmol/L (3.5-5.0)
[2022-10-21 05:10] LABS: ABNORMAL LYMPHS % (MANUAL) 0 %; BAND NEUTROPHILS % (MANUAL) 0 %
[2022-10-21 05:24] LABS: LYMPHOCYTES # (MANUAL) 5.4 10^3/uL (1.5-3.5); LYMPHOCYTES % (MANUAL) 32 %; MONOCYTES # (MANUAL) 1.2 10^3/uL (0.0-1.0); NEUTROPHILS # (MANUAL) 10.3 10^3/uL (1.5-6.6); PLATELET MORPHOLOGY NORMAL APPEARANCE (NORMAL); RBC MORPHOLOGY (MULTIPLE) NORMAL APPEARANCE (NORMAL)
[2022-10-21 05:25] LABS: DIFFERENTIAL COMMENT MANUAL DIFFERENTIAL; PLATELET ESTIMATE, MANUAL INCREASED (>450,000) (NORMAL); WBC MORPHOLOGY (MULTIPLE) NORMAL APPEARANCE (NORMAL)
[2022-10-21] MEDS: LEVOTHYROXINE 75 MCG TABLET PO SCH (06:21)
[2022-10-21] MEDS: PANTOPRAZOLE 40 MG TABLET PO SCH (06:21)
[2022-10-21] MEDS: INSULIN LISPRO 300 UNIT/3 ML PEN SUBQ SCH ×4 (08:11→21:02)
[2022-10-21] MEDS: FLUTICASONE NASAL SPRAY NAS SCH (08:14)
[2022-10-21] MEDS: polyethylene glycoL 3350 17 GM PACKET PO SCH (08:15)
[2022-10-21] MEDS: WHEAT DEXTRIN POWDER PACKET PO SCH (08:15)
[2022-10-21] MEDS: LORATADINE 10 MG TABLET PO SCH (08:17)
[2022-10-21] MEDS: CHOLECALCIFEROL 400 UNIT TABLET PO SCH (08:17)
[2022-10-21] MEDS: ASCORBIC ACID 500 MG TABLET PO SCH (08:17)
[2022-10-21] MEDS: VANCOMYCIN 125 MG CAPSULE PO SCH ×4 (08:17→20:59)
[2022-10-21] MEDS: THIAMINE 100 MG TABLET PO SCH (08:17)
[2022-10-21] MEDS: SOTALOL 80 MG TABLET PO SCH ×2 (08:18→20:59)
[2022-10-21] MEDS: FORMOTEROL FUMARATE NEB 20 MCG/2 ML INH SCH ×2 (08:18→19:19)
[2022-10-21] MEDS: LOSARTAN 50 MG TABLET PO SCH (08:18)
[2022-10-21] MEDS: BUDESONIDE 0.5 MG/2 ML NEB INH SCH ×2 (08:18→19:19)
[2022-10-21] MEDS: LACTOBACILLUS RHAMNOSUS GG CAPSULE PO SCH (08:19)
[2022-10-21] MEDS: guaiFENesin 600 MG TABLET PO SCH ×2 (08:19→20:59)
[2022-10-21] MEDS: FOLIC ACID 1 MG TABLET PO SCH (08:19)
[2022-10-21] MEDS: ZINC SULFATE 220 MG CAPSULE PO SCH (08:19)
[2022-10-21 11:52] LABS: PT - PROTHROMBIN TIME 21.6 secs (9.9-12.6)
[2022-10-21] MEDS: WARFARIN 2.5 MG TABLET PO SCH (13:00)
--- NOTE | 2022-10-21 16:52 | PROVIDER PROGRESS NOTE ---
Assessment/Plan - Problem List (1) E. coli UTI Assessment/Plan: Sensitive to all but gentamicin s/p 5 days of rocephin which ended 10/18. Browne out 10/18. 2) C dif Diarrhea C diff is positive and vancomycin po started 1/3 pm by telemedicine night doctor. Taking culturelle. Adding fiber per dtr's request (she reportedly takes it at home on a daily basis to control diarrhea). Plan: continue precautions continue po Vanco 3) Hyponatremia Sodium was up from 122 >>134 last check. No labs since 10/18. She is eating well. Off IV since 10/17. Today Na came back at 130. Prhaps she is losing it in diarrhea Plan: We may give iv NS again Will assure she is not taking in excessive amounts of free water Follow BMP daily 4) Influenza A s/p 5 days of tamiflu which ended 10/18. Continue droplet precautions. 5) COPD exacerbation Due to persistent wheezes/diminished breath sounds, we added budesonide/perforomist. I think she seems improved from previous description on exam but she can't say 6) Metabolic enceophalopathy This is waxing and waning. Manifested as excessive sleepiness and difficulty to arouse especially in the mornings. In my evaluation I thought of drugs, infection, stroke, PE, hypercapnia. I put her in the ICU October 15 and started on BiPAP to see if the hypercapnia would improve. While the hypercapnia did improve on blood gas, her overall metabolic encephalopathy did not. It is become clear that there is a pattern to sleepiness in the morning, better by a fternoon. This just may be her baseline. Much worse in am but clears by afternoon. This happened 3 days in a row now. Likely multifactorial from hyponatremia and infection. Improving slowly. I will continue to hold the trazodone. Continue to give the benzodiazepine. She has been on it for years I do not want to have a withdrawal effect from that. I had initially held her food tray because of obtundation but I resumed her diet and she is eating well. Nutrition services worked with the patient to figure out what to give her since we worried about choking and she is on a dysphagia puree diet. 7) DM2 BGs stable. A1c result came back just above 7%. Glucose stable. Plan: no change of management. 8) Chronic a fib Rate controlled on Sotalol. Therapeutic INR on Coumadin Plan: Will check INR q3days 9) Generalized weakness She is wheelchair bound at baseline. Overall its been difficult to decide wheth er we should get physical therapy or not in this woman who has been bedbound for years now. She has no ambition, and daughter states that she can no longer take care of mom at home, not in the state she is in.. If the patient gets stronger and can at least stand to pivot, daughter would be able to take care of her better. So her daughter is asking us to place her in rehab. Aim for a goal of standing to pivot and transfer. Aim for a goal of being able to at least put on a blouse or warehouse order puller a T-shirt, and then she could take mom home. Our Physical Therapy staff really tried to work with her with those goals in mind, prompting her many times, but the patient flatly refuses. As such we have explained to the daughter and the patient that we cannot do Medicare certification and transfer her for rehab to long-term facility, since she is not rehabable. Plan: The patient does have Medicaid so we are looking for a permanent placement bed with Medicaid Medicare. 10) Leukocytosis Slowly improving Likely d/t acute infection/steroids. Plan: Will monitor for signs of new infection. 11) Hx Hypertension. She is on sotalol for her afib. We added losartan 10/18 since BP too high. Today BP too low with diastolics 30-50's Plan: Will stop Losartan 12) Hypokalemia Resolved 13) Nausea/vomiting Resolved. She is tolerating po intake. Continue antiemetics PRN. - Current Meds Current Meds: Current Medications Generic Name Dose Route Start Last Admin Trade Name Freq PRN Reason Stop Dose Admin Albuterol 2.5 mg 10/12/22 22:00 10/20/22 19:50 Albuterol Neb 2.5 Mg/3 Ml INH 2.5 mg Q4H PRN Administration Shortness of Air/Wheezing Ascorbic Acid 500 mg 10/14/22 09:00 10/21/22 08:17 Ascorbic Acid 500 Mg Tablet PO 500 mg DAILY ZANE Administration Benzonatate 100 mg 10/17/22 14:55 10/19/22 20:00 Benzonatate 100 Mg Capsule PO 100 mg TID PRN Administration Cough Budesonide 0.5 mg 10/14/22 19:00 10/21/22 08:18 Budesonide 0.5 Mg/2 Ml Neb INH Not Given RTBID ZANE Cholecalciferol 800 unit 10/14/22 09:00 10/21/22 08:17 Cholecalciferol 400 Unit Tablet PO 800 unit DAILY ZANE Administration Clonazepam 0.5 mg 10/14/22 21:00 10/20/22 20:43 Clonazepam 0.5 Mg Tablet PO 0.5 mg HS ZANE Administration Fluticasone Propionate 1 sprays 10/14/22 09:00 10/21/22 08:14 Fluticasone Nasal [place] DENNY 1 spr DAILY ZANE Administration Folic Acid 1 mg 10/14/22 09:00 10/21/22 08:19 Folic Acid 1 Mg Tablet PO 1 mg DAILY ZANE Administration Formoterol Fumarate 20 mcg 10/14/22 19:00 10/21/22 08:18 Formoterol Fumarate Neb 20 Mcg/2 Ml INH Not Given RTBID ZANE Guaifenesin 600 mg 10/14/22 09:00 10/21/22 08:19 Guaifenesin 600 Mg Tablet PO 600 mg BID ZANE Administration Insulin Human Lispro 2 - 10 unit 10/14/22 21:00 10/21/22 12:55 Insulin Lispro 300 Unit/3 Ml Pen SUBQ 2 unit 0800,1200,1700,2100 ZANE Administration Protocol Lactobacillus Rhamnosus 1 cap 10/14/22 09:30 10/21/22 08:19 Lactobacillus Rhamnosus Gg Capsule PO 1 cap DAILY ZANE Administration Levothyroxine Sodium 75 mcg 10/15/22 07:00 10/21/22 06:21 Levothyroxine 75 Mcg Tablet PO 75 mcg QDAC ZANE Administration Loratadine 10 mg 10/14/22 09:00 10/21/22 08:17 Loratadine 10 Mg Tablet PO 10 mg DAILY ZANE Administration Losartan Potassium 50 mg 10/18/22 16:00 10/21/22 08:18 Losartan 50 Mg Tablet PO 50 mg DAILY ZANE Administration Mineral Oil 1 applic 10/13/22 20:15 10/20/22 13:16 Min Oil/Dimethicon/Coconut Oil 92 Gm Tube TOP 1 applic PRN PRN Administration Skin Care Pantoprazole Sodium 40 mg 10/14/22 12:00 10/21/22 06:21 Pantoprazole 40 Mg Tablet PO 40 mg QDAC ZANE Administration Polyethylene Glycol 17 gm 10/20/22 09:00 10/21/22 08:15 Polyethylene Glycol 3350 17 Gm Packet PO 17 gm DAILY ZANE Administration Sodium Chloride 10 ml 10/13/22 01:00 10/21/22 12:59 Sodium Chloride Flush 0.9% 10 Ml Syringe IVP 10 ml 0100,0900,1700 ZANE Administration Sotalol HCl 40 mg 10/15/22 09:00 10/21/22 08:18 Sotalol 80 Mg Tablet PO 40 mg BID ZANE Administration Thiamine HCl 100 mg 10/14/22 09:00 10/21/22 08:17 Thiamine 100 Mg Tablet PO 100 mg DAILY ZANE Administration Vancomycin HCl 125 mg 10/14/22 22:00 10/21/22 12:57 Vancomycin 125 Mg Capsule PO 125 mg QID ZANE Administration Warfarin Sodium 2.5 mg 10/13/22 14:00 10/21/22 13:00 Warfarin 2.5 Mg Tablet PO 2.5 mg 1400 ZANE Administration Wheat Dextrin 1 packet 10/15/22 09:00 10/21/22 08:15 Wheat Dextrin Powder Packet PO 1 packet DAILY ZANE Administration Zinc Sulfate 220 mg 10/14/22 09:00 10/21/22 08:19 Zinc Sulfate 220 Mg Capsule PO 220 mg DAILY ZANE Administration - Lab Result Fish Bone Diagrams: 10/21/22 04:23 10/21/22 04:23 - Additional Planning My Orders: My Active Orders 10/21/22 Dinner Dysphagia - Minced and Moist [DIET] 10/24/22 11:09 PT WITH INR [COAG] Q3D 10/27/22 11:09 PT WITH INR [COAG] Q3D Subjective - Subjective Patient Reports: Resting Comfortably Objective Vital Signs: Vital Signs - 24 hr 10/21/22 10/21/22 10/21/22 00:07 07:32 15:51 Temperature 36.6 C 36.5 C 36.9 C Heart Rate [ 73 80 75 Brachial] Respiratory 18 20 21 Rate Blood Pressure 130/37 L 139/90 H 133/32 H [Right Brachial artery] O2 Saturation 91 L 93 93 Oxygen O2 Source Room air I&O (Last 24 Hrs): Intake and Output Totals x24h 10/19/22 10/20/22 10/21/22 23:59 23:59 23:59 Intake Total 1070 1468 440 Output Total 1350 1800 500 Balance -280 -332 -60 General: Alert, No acute distress, Other HEENT: Mucous membr. moist/pink Neck: Supple Neuro: Non Focal (Has generalized weakness) Cardiovascular: No murmurs Respiratory: No respiratory distress Abdomen: Soft, Other (Obese) Extremities: No edema - Results Results: Laboratory Results WBC 16.9 x10^3/uL (4.8-10.8) H 10/21/22 04:23 RBC 4.36 10^6/uL (4.20-5.40) 10/21/22 04:23 Hgb 13.0 g/dL (12.0-16.0) 10/21/22 04: Hct 39.7 % (37.0-47.0) 10/21/22 04:23 MCV 91.1 fL (81.0-99.0) 10/21/22 04:23 MCH 29.8 pg (27.0-31.0) 10/21/22 04:23 MCHC 32.7 g/dL (32.0-36.0) 10/21/22 04: RDW 13.2 % (12.0-15.0) 10/21/22 04:23 Plt Count 493 10^3/uL (130-450) H 10/21/22 04:23 MPV 9.7 fL (7.9-10.8) 10/21/22 04:23 Neut # (Auto) Not Reportable 10/21/22 04:23 Lymph # (Auto) Not Reportable 10/21/22 04:23 [place] # (Auto) Not Reportable 10/21/22 04:23 Eos # (Auto) Not Reportable 10/21/22 04:23 Baso # (Auto) Not Reportable 10/21/22 04:23 Absolute Nucleated RBC Not Reportable 10/21/22 04:23 Total Counted 100 10/21/22 04:23 Band Neuts % (Manual) 0 % (0-10) 10/21/22 04:23 Abnorm Lymph % (Manual) 0 % 10/21/22 04:23 Nucleated RBC % Not Reportable 10/21/22 04:23 Neutrophils # (Manual) 10.3 10^3/uL (1.5-6.6) H 10/21/22 04:23 Lymphocytes # (Manual) 5.4 10^3/uL (1.5-3.5) H 10/21/22 04:23 Monocytes # (Manual) 1.2 10^3/uL (0.0-1.0) H 10/21/22 04:23 Eosinophils # (Manual) 0.0 10^3/uL (0-0.7) 10/21/22 04: Basophils # (Manual) 0.0 10^3/uL (0-0.1) 10/21/22 04:23 Differential Comment MANUAL DIFFERENTIAL 10/21/22 04: Manual Slide Review Indicated 10/12/22 22:03 WBC Morphology NORMAL APPEARANCE (NORMAL) 10/21/22 04: Platelet Estimate INCREASED (>450,000) (NORMAL) 10/21/22 04: Platelet Morphology NORMAL APPEARANCE (NORMAL) 10/21/22 04: RBC Morph Micro Appear NORMAL APPEARANCE (NORMAL) 10/21/22 04:23 PT 21.6 secs (9.9-12.6) H 10/21/22 11:33 INR (Fingerstick) 3.2 (0.8-1.2) H 10/12/22 19:56 INR 2.0 (0.8-1.2) H 10/21/22 11:33 Bld Gas Analysis Time 1308 10/15/22 13:00 Sample Site RIGHT RADIAL 10/15/22 13:00 ABG pH 7.38 (7.35-7.45) 10/15/22 13:00 ABG pCO2 55 mmHg (34-45) H 10/15/22 13:00 ABG pO2 60 mmHg (80-100) L 10/15/22 13:00 ABG HCO3 32.2 mmol/L (22.0-26.0) H 10/15/22 13:00 ABG Total CO2 33.9 MMOL/L (21.0-29.0) H 10/15/22 13:00 ABG O2 Saturation 93 % (94-98) L 10/15/22 13:00 ABG Base Excess 5.5 mmol/L (-2.0-3.0) H 10/15/22 13:00 Rich Test POSITIVE 10/15/22 13:00 VBG pH 7.454 (7.31-7.41) H 10/19/22 05:24 Ionized Calcium 1.12 mmol/L (1.15-1.33) L 10/19/22 05:24 O2 Delivery Device BiPAP 10/15/22 13:00 O2 Liters/Min 5.00 LPM 10/15/22 09:02 FiO2 30.00 10/15/22 13:00 EPAP 5 cmH2O 10/15/22 13:00 IPAP 14 cmH2O 10/15/22 13:00 Sodium 130 mmol/L (135-145) L 10/21/22 04:23 Potassium 4.6 mmol/L (3.5-5.0) 10/21/22 04:23 Chloride 86 mmol/L (101-111) L 10/21/22 04:23 Carbon Dioxide 33 mmol/L (21-32) H 10/21/22 04:23 Anion Gap 11.0 (6-13) 10/21/22 04:23 BUN 21 mg/dL (6-20) H 10/21/22 04:23 Creatinine 0.7 mg/dL (0.4-1.0) 10/21/22 04:23 Estimated GFR (MDRD) 80 (>89) L 10/21/22 04:23 Glucose 169 mg/dL (70-100) H 10/21/22 04:23 Estimat Average Glucose 169 mg/dL (70-100) H 10/12/22 16:45 Hemoglobin A1c % 7.5 % (4.27-6.07) H 10/12/22 16:45 Lactic Acid 1.0 mmol/L (0.5-2.2) 10/13/22 05:05 Calcium 9.2 mg/dL (8.5-10.3) 10/21/22 04:23 Phosphorus 4.5 mg/dL (2.5-4.6) 10/19/22 05:24 Magnesium 1.7 mg/dL (1.7-2.8) 10/19/22 05:24 Total Bilirubin 0.6 mg/dL (0.2-1.0) 10/13/22 05:05 AST 17 IU/L (10-42) 10/13/22 05:05 ALT 19 IU/L (10-60) 10/13/22 05:05 Alkaline Phosphatase 55 IU/L (42-121) 10/13/22 05:05 Troponin I High Sens 9.5 ng/L (2.3-14.8) 10/12/22 22:03 B-Natriuretic Peptide 392 pg/mL (5-100) H 10/15/22 05:03 Total Protein 6.6 g/dL (6.7-8.2) L 10/13/22 05:05 Albumin 3.3 g/dL (3.2-5.5) 10/13/22 05:05 Globulin 3.3 g/dL (2.1-4.2) 10/13/22 05:05 Albumin/Globulin Ratio 1.0 (1.0-2.2) 10/13/22 05:05 Triglycerides 101 mg/dL (-149) 10/12/22 22:03 Cholesterol 175 mg/dL (-199) 10/12/22 22:03 LDL Cholesterol, Calc 115 mg/dL (-129) 10/12/22 22:03 VLDL Cholesterol 20 mg/dL 10/12/22 22:03 HDL Cholesterol 40 mg/dL (60-) L 10/12/22 22:03 LDL/HDL Ratio 2.9 (<4.4) 10/12/22 22:03 Cholesterol/HDL Ratio 4.4 (<4.4) 10/12/22 22:03 Lipase 25 U/L (22-51) 10/12/22 16:57 Procalcitonin 0.09 ng/mL (<0.5) 10/12/22 16:45 TSH 3.75 uIU/mL (0.34-5.60) 10/12/22 16:45 Urine Color YELLOW 10/12/22 18:20 Urine Clarity CLOUDY (CLEAR) 10/12/22 18:20 Urine pH 6.0 PH (5.0-7.5) 10/12/22 18:20 Ur Specific [place] >=1.030 (1.002-1.030) H 10/12/22 18:20 Urine Protein 100 mg/dL (NEGATIVE) H 10/12/22 18:20 Urine Glucose (UA) NEGATIVE mg/dL (NEGATIVE) 10/12/22 18:20 Urine Ketones NEGATIVE mg/dL (NEGATIVE) 10/12/22 18:20 Urine Occult Blood MODERATE (NEGATIVE) H 10/12/22 18:20 Urine Nitrite POSITIVE (NEGATIVE) H 10/12/22 18:20 Urine Bilirubin NEGATIVE (NEGATIVE) 10/12/22 18:20 Urine Urobilinogen 0.2 (NORMAL) E.U./dL (NORMAL) 10/12/22 18:20 Ur Leukocyte Esterase MODERATE (NEGATIVE) H 10/12/22 18:20 Urine RBC TNTC /HPF (0-5) H 10/12/22 18:20 Urine WBC >25 /HPF (0-5) H 10/12/22 18:20 Urine WBC Clumps PRESENT 10/12/22 18:20 Ur Squamous Epith Cells FEW Squamous (<= Few) 10/12/22 18:20 Urine Bacteria Many /HPF (None Seen) H 10/12/22 18:20 Ur Microscopic Review INDICATED 10/12/22 18:20 Urine Culture Comments INDICATED 10/12/22 18:20 Nasal Adenovirus (PCR) NOT DETECTED 10/12/22 16:54 Nasal B. parapertussis DNA (PCR) NOT DETECTED 10/12/22 16:54 Nasal Coronavir 229E PCR NOT DETECTED 10/12/22 16:54 Nasal Coronavir HKU1 PCR NOT DETECTED 10/12/22 16:54 Nasal Coronavir NL63 PCR NOT DETECTED 10/12/22 16:54 Nasal Coronavir OC43 PCR NOT DETECTED 10/12/22 16:54 Nasal Enterovir/Rhinovir PCR NOT DETECTED 10/12/22 16:54 Nasal Influenza A H3 PCR DETECTED A 10/12/22 16:54 Nasal Influenza B PCR NOT DETECTED 10/12/22 16:54 Nasal Parainfluen 1 PCR NOT DETECTED 10/12/22 16:54 Nasal Parainfluen 2 PCR NOT DETECTED 10/12/22 16:54 Nasal Parainfluen 3 PCR NOT DETECTED 10/12/22 16:54 Nasal Parainfluen 4 PCR NOT DETECTED 10/12/22 16:54 Nasal RSV (PCR) NOT DETECTED 10/12/22 16:54 Nasal Screen MRSA (PCR) NEGATIVE (NEGATIVE) 10/15/22 10:50 Nasal B.pertussis DNA PCR NOT DETECTED 10/12/22 16:54 Nasal C.pneumoniae (PCR) NOT DETECTED 10/12/22 16:54 Denny Human Metapneumo PCR NOT DETECTED 10/12/22 16:54 Nasal M.pneumoniae (PCR) NOT DETECTED 10/12/22 16:54 Nasal SARS-CoV-2 (PCR) NOT DETECTED 10/12/22 16:54 Stl C. diff Tox B Gene POSITIVE (NEGATIVE) A* 10/14/22 18:20 - Procedures Procedures: Procedures REPLACEMENT OF LEFT LENS WITH SYNTH SUB, PERC APPROACH (02/07/16) REPLACEMENT OF RIGHT LENS WITH SYNTH SUB, PERC APPROACH (04/03/16)
[2022-10-21] MEDS: clonazePAM 0.5 MG TABLET PO SCH (20:59)
[2022-10-22] MEDS: SODIUM CHLORIDE FLUSH 0.9% 10 ML SYRINGE IVP SCH ×2 (04:40→08:10)
[2022-10-22] MEDS: LEVOTHYROXINE 75 MCG TABLET PO SCH (06:03)
[2022-10-22] MEDS: PANTOPRAZOLE 40 MG TABLET PO SCH (06:03)
[2022-10-22] MEDS: FLUTICASONE NASAL SPRAY NAS SCH (08:04)
[2022-10-22] MEDS: INSULIN LISPRO 300 UNIT/3 ML PEN SUBQ SCH ×2 (08:04→12:49)
[2022-10-22] MEDS: FOLIC ACID 1 MG TABLET PO SCH (08:09)
[2022-10-22] MEDS: LACTOBACILLUS RHAMNOSUS GG CAPSULE PO SCH (08:09)
[2022-10-22] MEDS: SOTALOL 80 MG TABLET PO SCH (08:09)
[2022-10-22] MEDS: CHOLECALCIFEROL 400 UNIT TABLET PO SCH (08:09)
[2022-10-22] MEDS: LORATADINE 10 MG TABLET PO SCH (08:09)
[2022-10-22] MEDS: THIAMINE 100 MG TABLET PO SCH (08:09)
[2022-10-22] MEDS: guaiFENesin 600 MG TABLET PO SCH (08:10)
[2022-10-22] MEDS: polyethylene glycoL 3350 17 GM PACKET PO SCH (08:10)
[2022-10-22] MEDS: ZINC SULFATE 220 MG CAPSULE PO SCH (08:18)
[2022-10-22] MEDS: WHEAT DEXTRIN POWDER PACKET PO SCH (08:18)
[2022-10-22] MEDS: ASCORBIC ACID 500 MG TABLET PO SCH (08:22)
[2022-10-22] MEDS: VANCOMYCIN 125 MG CAPSULE PO SCH ×2 (08:31→13:42)
[2022-10-22] MEDS: BUDESONIDE 0.5 MG/2 ML NEB INH SCH (09:01)
[2022-10-22] MEDS: FORMOTEROL FUMARATE NEB 20 MCG/2 ML INH SCH (09:01)
--- NOTE | 2022-10-22 12:19 | Discharge Plan ---
"Discharge Plan for SNF / [facility] - Discharge Plan And Transition Orders Problem Reviewed?: Yes Disposition: 03 SNF DC/Xfer Condition: Stable Allergies and Adverse Reactions: Allergies Allergy/AdvReac Type Severity Reaction Status Date / Time Penicillins Allergy Unknown Verified 10/12/22 16:46 Sulfa (Sulfonamide Allergy Unknown Verified 10/12/22 16:46 Antibiotics) codeine AdvReac Anaphylaxis Verified 10/12/22 16:46 epinephrine AdvReac Nausea Verified 10/12/22 16:46 Iodinated Contrast Media AdvReac Anxiety Verified 10/15/22 18:28 iodine AdvReac Anxiety Verified 10/15/22 18:28 morphine AdvReac Nausea Verified 10/12/22 16:46 propofol AdvReac Nausea Verified 10/12/22 16:46 Health Concerns: The patient was admitted with weakness, is usually only active between bed and put in a wheelchair, was found to have a UTI and treated, developed C. difficile diarrhea which is improved but still finishing treatment. She cannot rehab with PT and OT. The patient and daughter have decided to place the patient in long- term care now. Plan of Treatment: As above. Continue with her usual diet, activity from bed to chair using a lift and continue medications and usual management. Care Goals: Improvement in symptoms and stabilization are the goals. Her CODE STATUS is DNR/DNI. Assessment: The patient and daughter understand and are agreeable with the plan. - SNF / [facility] Transition Orders Admit to (Facility): [facility] Under the care of (Name): Margaret Tay, UI DEVELOPER or staff provider at [facility] Discharge Diagnosis: (1) E. coli UTI Treatment completed 2) C dif Diarrhea Patient to continue po Vanco and complete a course of antibiotics 3) Hyponatremia Improved 4) Influenza A Treatment with 5 days of tamiflu ended 10/18. 5) COPD exacerbation Resolved 6) Metabolic enceophalopathy Improved 7) DM2 Stable 8) Chronic a fib Stable. Plan is to check INR q3-7days. INR goal is 2-3. 9) Generalized weakness She is wheelchair bound at baseline. 10) Hypertension. Stable 11) Hypothyroidism Stable 12) Hypokalemia Resolved 13) Nausea/vomiting Resolved Medicare Certification Statement: I certify that [facility] care is medically necessary on a continuing basis for any of the conditions for which she/he is receiving care during hospitalization. Notify PCP of admission and forward orders to primary provider for signature. Weight on admission and: Weekly Call PCP immediately if weight increases by: 5 kg Other Notification Orders: Call PCP immediately if patient develops dyspnea, chest pain/tightness or edema. House Bowel Program: Yes Additional Bowel Program Orders: If no BM after 2 days, nurse may give M.O.M. 30ml PO PRN and/or ducolax Supp 1 NV and/or BENNETT 250mg P.O., and/or senna 1-2 tabs PO. On day 3 nurse may give repeat above order until residents constipation is resolved. Annual Influenza Vaccine (between Jun 12 and January 09): Yes Two-step PPD per [facility] [phone] or approved exception documents: Yes Treatments & Other Orders: Fingerstick checks before meals and at bedtime Lab Tests or X-ray Orders: INR approximately once a week Medication Orders: PLEASE REFER TO THE DISCHARGE MEDICATION LIST. Insulin Orders?: Yes - Medications New Prescriptions: Wheat Dextrin [Benefiber] 1 packet PO DAILY #30 packet Lactobacillus Rhamnosus GG [Culturelle] 1 cap PO DAILY #30 cap Folic Acid 1 mg PO DAILY #30 tab Blood-Glucose Meter [Glucometer] 1 each ACHS #1 each Insulin Lispro [Humalog Kwikpen U-100] 2 - 10 unit SUBQ 0800,1200,1700,2100 #1 ea Lancets/Blood Glucose Strips [Pogo Automatic Test Cartridge] 1 each MC ACHS #120 ea Vancomycin [Vancocin] 125 mg PO QID #40 cap Thiamine [Vitamin B-1] 100 mg PO DAILY #30 tab - Diet Type: No added sugar (4-carb diabetic diet, minced and moist) Texture: [facility] soft Liquids: Thin May have monthly special meal: Yes - Therapies | Activity Rehabilitation Potential: Maintain present ADL Functional Activity: Activity as Tolerated Weight Bearing: No Weight Assistance Devices: Other (Lift device to go from bed to chair) Insulin Orders - SNF Basal | Correction | Custom Orders: Diagnosis: Diabetes Initiate hypo and hyperglycemia protocols for BG <70 and BG >375. May check BG PRN for signs/symptoms of dysglycemia. Frequency of BG checks: [AC & HS] Basal Insulin: None Correction Insulin: - Select the type of insulin below [Choose: Humalog 100 units /ml insulin inject subq per orders indicate below [] LOW DOSE [] MODERATE DOSE X MODERATE/HIGH DOSE [] HIGH DOSE GB UNITS GB UNITS GB UNITS GB UNITS 61-140 0 UNITS 61-140 0 UNITS 61-140 0 UNITS 61-140 0 UNITS 141-175 1 UNITS 141-175 1 UNITS 141-175 2 UNITS 141-175 3 UNITS 176-225 2 UNITS 176-225 3 UNITS 176-225 4 UNITS 176-225 5 UNITS 226-275 3 UNITS 226-275 5 UNITS 226-275 6 UNITS 226-275 7 UNITS 276-325 4 UNITS 276-325 7 UNITS 276-325 8 UNITS 276-325 9 UNITS 326-375 5 UNITS 326-375 9 UNITS 326-375 10 UNITS 326-375 11 UNITS >375 CONTACT MD >375 CONTACT MD >375 CONTACT MD >375 CONTACT MD"
--- NOTE | 2022-10-22 12:40 | DISCHARGE SUMMARY ---
Discharge Summary Admit Date: 10/12/22 Discharge Date: 10/22/22 Discharging Provider: Dr Ileana Nation Primary Care Provider: CATRACHITA Tay Code Status: Do Not Attempt Resuscitation Condition at Discharge: Stable Discharge Disposition: 03 SNF DC/Xfer - HPI History of Present Illness: 81 y/o pt who lives with her daughter, is wheelchair bound at baseline, came to ER with c/o generalized malaise, cough, weakness, fatigue x 2 days. recently in contact with sick grandchildren. unvaccinated against covid and flu. has had persistent cough . no chest pain, but has SOB associated with cough. h/o copd and hasn't smoked in 40 yr. also with some generalized body aches, dysuria, and foul odor from urine. no hematuria or diarrhea. brief episodes of confusion and tiredness, but no neurologic changes, per daughter. she has had fevers and chills. cough is dry. Patient admitted for UTI, Sepsis, Influenza A on iv Rocephin daily, iv fluids. - HOSPITAL COURSE Hospital Course: (1) E. coli UTI She completed a course of antibiotics. Blood cultures were neg. 2) C dif Diarrhea After 2 days of IV antibiotics, she developed diarrhea which was tested and came back C. difficile positive. She was started on po Vanco and needs to complete a course of antibiotics, with several more days after [facility]. 3) Hyponatremia Her admission sodium was 120. We felt this was hypovolemic hyponatremia and it slowly improved to 134 with NS iv hydration. On the day of discharge her serum sodium was 130. 4) Influenza A She was put on treatment with 5 days of tamiflu, ended 10/18/22. 5) COPD exacerbation She required nebulizers, steroids, Mucinex and supplemental O2. These were all weaned down slowly and her COPD exacerbation resolved 6) Metabolic enceophalopathy Her mild confusion improved after IV fluids and IV antibiotics were instituted 7) DM2 She was kept on a diabetic diet, had fingerstick checks and insulin sliding scale coverage. Her A1c came back at 7.5. 8) Chronic a fib Stable heart rate on her usual meds. She is on chronic Coumadin. Plan is to check INR q3-7days. INR goal is 2-3. 9) Generalized weakness She is wheelchair bound at baseline, not rehabable. He was discharged to a long- term care residence home. 10) Hypertension. Stable on her usual meds. 11) Hypothyroidism Stable on her usual meds. 12) Hypokalemia Resolved with Potassium replacement 13) Nausea/vomiting Resolved with iv antiemetics, and by treating the underlying infection and dehydration, and a clear liquid diet was advanced to solids slowly. - ALLERGIES Allergies/Adverse Reactions: Allergies Allergy/AdvReac Type Severity Reaction Status Date / Time Penicillins Allergy Unknown Verified 10/12/22 16:46 Sulfa (Sulfonamide Allergy Unknown Verified 10/12/22 16:46 Antibiotics) codeine AdvReac Anaphylaxis Verified 10/12/22 16:46 epinephrine AdvReac Nausea Verified 10/12/22 16:46 Iodinated Contrast Media AdvReac Anxiety Verified 10/15/22 18:28 iodine AdvReac Anxiety Verified 10/15/22 18:28 morphine AdvReac Nausea Verified 10/12/22 16:46 propofol AdvReac Nausea Verified 10/12/22 16:46 - MEDICATIONS Home Medications: Ambulatory Orders Medication Instructions Recorded Confirmed Levothyroxine [Synthroid] 75 mcg PO QDAC 02/07/16 10/13/22 Sotalol HCl [Sotalol] 40 mg PO BID 02/07/16 10/13/22 Warfarin [Coumadin] 2.5 mg PO HS 02/07/16 10/13/22 clonazePAM [Clonazepam] 0.5 mg PO HS 02/07/16 10/13/22 Ascorbic Acid [Vitamin C] 1,000 mg PO DAILY 10/13/22 10/13/22 Cholecalciferol [Vitamin D3] 5,000 unit PO DAILY 10/13/22 10/13/22 Cranberry Fruit Extract [Cranberry] 500 mg PO DAILY 10/13/22 10/13/22 Lactobacillus Combination No.4 1 each PO DAILY 10/13/22 10/13/22 [Probiotic] Blood-Glucose Meter [Glucometer] 1 each ACHS #1 each 10/22/22 Fluticasone [Flonase] 1 sprays DENNY DAILY each 10/22/22 Folic Acid 1 mg PO DAILY #30 tab 10/22/22 Insulin Lispro [Humalog Kwikpen 2 - 10 unit SUBQ 10/22/22 U-100] 0800,1200,1700,2100 #1 ea Lactobacillus Rhamnosus GG 1 cap PO DAILY #30 cap 10/22/22 [Culturelle] Lancets/Blood Glucose Strips [Pogo 1 each ACHS #120 ea 10/22/22 Automatic Test Cartridge] Loratadine [Claritin] 10 mg PO DAILY tab 10/22/22 Thiamine [Vitamin B-1] 100 mg PO DAILY #30 tab 10/22/22 Vancomycin [Vancocin] 125 mg PO QID #40 cap 10/22/22 Wheat Dextrin [Benefiber] 1 packet PO DAILY #30 packet 10/22/22 polyethylene glycoL 3350 [Miralax] 17 gm PO DAILY packet 10/22/22 - PHYSICAL EXAM AT DISCHARGE General Appearance: positive: No acute distress, Alert, Other (Bedbound elderly white female, slightly obese.) Eyes Bilateral: positive: Normal inspection ENT: positive: ENT inspection nml, No signs of dehydration Neck: positive: Nml inspection Respiratory: positive: No respiratory distress Cardiovascular: positive: No murmur Abdomen: positive: Non-tender, Other (Obese, soft) Skin: positive: Warm, Dry Extremities: positive: Other (1+ edema) Neurologic/Psychiatric: positive: Disoriented to place, Disoriented to time, O ther (Generalized weakness, is bedbound) - LABS Result Diagrams: 10/21/22 04:23 10/21/22 04:23 - DIAGNOSTIC IMAGING Diagnostic Imaging Results: Final report reviewed - FOLLOW UP Follow Up: See PCP in 1 to 2 weeks for hospital follow-up visit.
[2022-10-22] MEDS: WARFARIN 2.5 MG TABLET PO SCH (13:42)
[2022-10-22 14:33] VITALS: BP 143/56
== END 2022-10-22 15:35 | DRG 871 ==
LOC: EDUNIT# → ED 16:37 → MS2 21:06 → UNDOADMOB 21:06 → MS2 21:58 → OBSVTOIN 10-13 12:37 → ICU 10-15 10:57 → MS2 10-17 14:23
PROVIDERS: ADMIT Student in an Organized Health Care Education/Training Program; ATTEND Internal Medicine
DX: A41.9 Sepsis, unspecified organism (principal); G92.8 Other toxic encephalopathy; N12 Tubulo-interstitial nephritis, not specified as acute or chronic; A04.72 Enterocolitis due to Clostridium difficile, not specified as recurrent; E87.1 Hypo-osmolality and hyponatremia; J44.1 Chronic obstructive pulmonary disease with (acute) exacerbation; I48.20 Chronic atrial fibrillation, unspecified; B96.20 Unspecified Escherichia coli [E. coli] as the cause of diseases classified elsewhere; E86.0 Dehydration; J10.1 Influenza due to other identified influenza virus with other respiratory manifestations; R53.1 Weakness; E11.65 Type 2 diabetes mellitus with hyperglycemia; Z28.39 Other underimmunization status; I10 Essential (primary) hypertension; E03.9 Hypothyroidism, unspecified; E87.6 Hypokalemia; Z20.822 Contact with and (suspected) exposure to COVID-19; F32.A Depression, unspecified; F41.9 Anxiety disorder, unspecified; E87.5 Hyperkalemia; E66.01 Morbid (severe) obesity due to excess calories; R06.89 Other abnormalities of breathing; M54.9 Dorsalgia, unspecified; G89.29 Other chronic pain; R09.02 Hypoxemia; Z68.34 Body mass index [BMI] 34.0-34.9, adult; Z79.01 Long term (current) use of anticoagulants; Z28.310 Unvaccinated for COVID-19; Z74.01 Bed confinement status; Z87.891 Personal history of nicotine dependence; Z99.3 Dependence on wheelchair; Z91.199 Patient's noncompliance with other medical treatment and regimen due to unspecified reason
CPT/HCPCS: 36415; 36600; 51701; 70450; 71045; 71275; 80048; 80053; 80061; 81001; 82330; 82803; 83036; 83605; 83690; 83735; 83880; 84100; 84132; 84145; 84295; 84443; 84484; 85025; 85610; 87040; 87086; 87150; 87181; 87493; 87633; 87635; 94640; 94660; 96374; 97162; 97166; 99284; 99285; A6250; A9270; G0378; J7626; J8499; Q9967; 81003; 83721

== ENCOUNTER 2022-10-22 15:40 | Outpatient (CLI) | payer MEDICARE, MEDICAID | END 2022-10-22 15:41 | LOC: EMS 15:40 | PROVIDERS: ATTEND Internal Medicine | DX: N39.0 Urinary tract infection, site not specified (principal); B96.89 Other specified bacterial agents as the cause of diseases classified elsewhere; J10.1 Influenza due to other identified influenza virus with other respiratory manifestations; J44.9 Chronic obstructive pulmonary disease, unspecified; I48.91 Unspecified atrial fibrillation; D72.829 Elevated white blood cell count, unspecified; G93.40 Encephalopathy, unspecified; Z74.01 Bed confinement status | CPT/HCPCS: A0425; A0428 ==

== ENCOUNTER 2022-10-25 08:00 | Outpatient (CLI) | payer MEDICARE, MEDICAID ==
[2022-10-26 08:22] LABS: ESTIMATED AVERAGE GLUCOSE 166 mg/dL (70-100); HEMOGLOBIN A1c% 7.4 % (4.27-6.07)
== END 2022-10-25 23:59 | disposition home or self-care (01) ==
LOC: LAB.R 08:00
DX: E11.69 Type 2 diabetes mellitus with other specified complication (principal)
CPT/HCPCS: 83036

== ENCOUNTER 2022-10-26 08:00 | Outpatient (CLI) | payer MEDICARE, MEDICAID ==
[2022-10-26 18:20] LABS: B. PARAPERTUSSIS- RESP PCR PAN NOT DETECTED; B. PERTUSSIS- RESP PCR PANEL NOT DETECTED; C. PNEUMONIAE- RESP PCR PANEL NOT DETECTED; CORONAVIRUS 229E-RESP PCR NOT DETECTED; CORONAVIRUS HKU1-RESP PCR NOT DETECTED; CORONAVIRUS NL63-RESP PCR NOT DETECTED; CORONAVIRUS OC43-RESP PCR NOT DETECTED; HUMAN METAPNEUMOVIRUS NOT DETECTED; INFLUENZA A- RESP PCR PANEL NOT DETECTED; INFLUENZA B - RESP PCR PANEL NOT DETECTED; M. PNEUMONIAE- RESP PCR PANEL NOT DETECTED; PARAINFLUENZA VIRUS 1 NOT DETECTED; PARAINFLUENZA VIRUS 2 NOT DETECTED; PARAINFLUENZA VIRUS 3 NOT DETECTED; PARAINFLUENZA VIRUS 4 NOT DETECTED; RHINOVIRUS/ENTEROVIRUS NOT DETECTED; RSV- RESP PCR PANEL NOT DETECTED; SARS-CoV-2 -RESP PCR PANEL NOT DETECTED
== END 2022-10-26 23:59 | disposition home or self-care (01) ==
LOC: LAB.R 08:00
PROVIDERS: ATTEND Internal Medicine
DX: R05.9 Cough, unspecified (principal); Z20.822 Contact with and (suspected) exposure to COVID-19
CPT/HCPCS: 87633

== ENCOUNTER 2023-02-12 14:52 | Outpatient (CLI) | payer OTHER, MEDICAID | END 2023-02-12 14:53 | disposition home or self-care (01) | LOC: LAB.R 14:52 | PROVIDERS: ATTEND Registered Nurse | DX: A04.72 Enterocolitis due to Clostridium difficile, not specified as recurrent (principal) | CPT/HCPCS: 87493 ==

== ENCOUNTER 2023-03-20 08:00 | Outpatient (CLI) | payer OTHER, MEDICAID | END 2023-03-20 23:59 | disposition home or self-care (01) | LOC: LAB.R 08:00 | PROVIDERS: ATTEND Registered Nurse | DX: R19.7 Diarrhea, unspecified (principal) | CPT/HCPCS: 87493 ==

== ENCOUNTER 2023-04-08 08:02 | Outpatient (CLI) | payer MEDICARE, MEDICAID | END 2023-04-08 08:03 | disposition home or self-care (01) | LOC: LAB.R 08:02 | PROVIDERS: ATTEND Registered Nurse | DX: E03.9 Hypothyroidism, unspecified (principal) | CPT/HCPCS: 84443 ==

== ENCOUNTER 2023-04-14 08:00 | Outpatient (CLI) | payer MEDICARE, MEDICAID ==
[2023-04-15 10:42] LABS: ESTIMATED AVERAGE GLUCOSE 131 mg/dL (70-100); HEMOGLOBIN A1c% 6.2 % (4.27-6.07)
== END 2023-04-14 23:59 | disposition home or self-care (01) ==
LOC: LAB.R 08:00
PROVIDERS: ATTEND Registered Nurse
DX: E11.69 Type 2 diabetes mellitus with other specified complication (principal)
CPT/HCPCS: 83036

== ENCOUNTER 2023-04-19 08:00 | Outpatient (CLI) | payer MEDICARE, MEDICAID | END 2023-04-19 23:59 | disposition home or self-care (01) | LOC: LAB.R 08:00 | PROVIDERS: ATTEND Registered Nurse | DX: A04.71 Enterocolitis due to Clostridium difficile, recurrent (principal) | CPT/HCPCS: 87493 ==

== ENCOUNTER 2023-08-14 14:18 | Outpatient (CLI) | payer MEDICARE, MEDICAID ==
--- NOTE | 2023-08-14 17:24 | XRAY Report ---
PROCEDURE: Chest 2 View X-Ray INDICATIONS: PNEUMONIA TECHNIQUE: 2 views of the chest were acquired. COMPARISON: None. FINDINGS: Patient is allowed to the right. Surgical changes and devices: None. Lungs and pleura: No pleural effusions or pneumothorax. Lungs are clear. Mediastinum: Mediastinal contours appear normal. Heart size is normal. Bones and chest wall: No suspicious bony lesions. Overlying soft tissues appear unremarkable. IMPRESSION: No acute cardiopulmonary process identified. Reviewed by: Gary Franklin MD on 08/14/2023 5:23 PM PDT Approved by: Gary Franklin MD on 08/14/2023 5:23 PM PDT Station ID: [id number]
== END 2023-08-14 14:19 | disposition home or self-care (01) ==
LOC: DI 14:18
PROVIDERS: ATTEND Registered Nurse
DX: R06.89 Other abnormalities of breathing (principal)

== ENCOUNTER 2023-08-15 08:00 | Outpatient (CLI) | payer MEDICARE, MEDICAID ==
[2023-08-15 11:17] LABS: ALBUMIN/GLOBULIN RATIO 1.3 (1.0-2.2); BILIRUBIN,TOTAL 0.3 mg/dL (0.2-1.0); CALCIUM 9.7 mg/dL (8.5-10.3); CREATININE 0.6 mg/dL (0.6-1.3)
== END 2023-08-15 23:59 | disposition home or self-care (01) ==
LOC: LAB.R 08:00
PROVIDERS: ATTEND Registered Nurse
DX: E11.69 Type 2 diabetes mellitus with other specified complication (principal); E87.6 Hypokalemia
CPT/HCPCS: 80053

== ENCOUNTER 2023-09-11 13:14 | Outpatient (CLI) | payer MEDICARE, MEDICAID ==
--- NOTE | 2023-09-13 08:09 | XRAY Report ---
PROCEDURE: Chest 2 View X-Ray INDICATIONS: RULE OUT PNEUMONIA TECHNIQUE: 2 views of the chest were acquired. COMPARISON: Chest x-ray, 08/14/2023. FINDINGS: Surgical changes and devices: None. Lungs and pleura: Shallow inspiration. No pleural effusions or pneumothorax. Lungs are clear. Mediastinum: Mediastinal contours appear normal. Heart size is normal. Bones and chest wall: No suspicious bony lesions. Overlying soft tissues appear unremarkable. IMPRESSION: No acute cardiopulmonary process. Reviewed by: Molly Waldrop MD on 09/13/2023 8:08 AM [facility] Approved by: Molly Waldrop MD on 09/13/2023 8:08 AM [facility] Station ID: [id number]
== END 2023-09-11 13:15 | disposition home or self-care (01) ==
LOC: DI 13:14
PROVIDERS: ATTEND Registered Nurse
DX: R06.89 Other abnormalities of breathing (principal)

== ENCOUNTER 2023-09-13 08:00 | Outpatient (CLI) | payer MEDICARE, MEDICAID ==
[2023-09-13 15:56] LABS: ALBUMIN 4.1 g/dL (3.2-5.5); ALBUMIN/GLOBULIN RATIO 1.7 (1.0-2.2); BILIRUBIN,TOTAL 0.2 mg/dL (0.2-1.0); CALCIUM 9.4 mg/dL (8.5-10.3); CREATININE 0.5 mg/dL (0.6-1.3); POTASSIUM 4.2 mmol/L (3.5-4.5); TOTAL PROTEIN 6.5 g/dL (6.4-8.9)
[2023-09-13 15:59] LABS: BASOPHILS # (AUTO) 0.1 10^3/uL (0.0-0.1); BASOPHILS % (AUTO) 0.5 %; EOSINOPHILS # (AUTO) 0.2 10^3/uL (0.0-0.7); HGB - HEMOGLOBIN 12.9 g/dL (12.0-16.0); LYMPHOCYTES # (AUTO) 7.5 10^3/uL (1.5-3.5); MEAN CORPUSCULAR HEMOGLOBIN 29.6 pg (27.0-31.0); MEAN CORPUSCULAR HGB CONC 33.1 g/dL (32.0-36.0); MEAN CORPUSCULAR VOLUME 89.4 fL (81.0-99.0); MEAN PLATELET VOLUME 10.8 fL (7.9-10.8); MONOCYTES # (AUTO) 1.2 10^3/uL (0.0-1.0); MONOCYTES % (AUTO) 6.3 %; NEUTROPHILS # (AUTO) 9.8 10^3/uL (1.5-6.6); NEUTROPHILS % (AUTO) 51.8 %; PLT - PLATELET COUNT 441 10^3/uL (130-450); RED BLOOD COUNT 4.36 10^6/uL (4.20-5.40); RED CELL DISTRIBUTION WIDTH 12.9 % (12.0-15.0); WHITE BLOOD COUNT 18.9 x10^3/uL (4.8-10.8)
[2023-09-13 16:19] LABS: SLIDE REVIEW? Indicated
[2023-09-13 16:42] LABS: DIFFERENTIAL COMMENT MANUAL=AUTO DIFF; PLATELET ESTIMATE, MANUAL NORMAL (130-450,000) (NORMAL); PLATELET MORPHOLOGY NORMAL APPEARANCE (NORMAL); RBC MORPHOLOGY (MULTIPLE) NORMAL APPEARANCE (NORMAL); WBC MORPHOLOGY (MULTIPLE) NORMAL APPEARANCE (NORMAL)
== END 2023-09-13 23:59 | disposition home or self-care (01) ==
LOC: LAB.R 08:00
DX: E11.69 Type 2 diabetes mellitus with other specified complication (principal)
CPT/HCPCS: 36415; 80053; 85025

== ENCOUNTER 2023-09-16 13:54 | Outpatient (CLI) | payer MEDICARE, MEDICAID | END 2023-09-16 13:55 | disposition home or self-care (01) | LOC: LAB.R 13:54 | DX: A04.72 Enterocolitis due to Clostridium difficile, not specified as recurrent (principal) | CPT/HCPCS: 87493 ==

== ENCOUNTER 2023-10-13 07:41 | Outpatient (CLI) | payer MEDICARE, MEDICAID ==
[2023-10-13 11:43] LABS: ESTIMATED AVERAGE GLUCOSE 131 mg/dL (70-100); HEMOGLOBIN A1c% 6.2 % (4.27-6.07)
== END 2023-10-13 07:42 | disposition home or self-care (01) ==
LOC: LAB 07:41
PROVIDERS: ATTEND Registered Nurse
DX: E11.9 Type 2 diabetes mellitus without complications (principal)
CPT/HCPCS: 36415; 83036

== ENCOUNTER 2024-04-27 09:10 | Outpatient (CLI) | payer OTHER ==
[2024-04-27 10:15] LABS: ESTIMATED AVERAGE GLUCOSE 114 mg/dL (70-100); HEMOGLOBIN A1c% 5.6 % (4.27-6.07)
== END 2024-04-27 09:11 | disposition home or self-care (01) ==
LOC: LAB.R 09:10
PROVIDERS: ATTEND Registered Nurse
DX: E11.69 Type 2 diabetes mellitus with other specified complication (principal)
CPT/HCPCS: 83036

== ENCOUNTER 2024-05-24 08:00 | Outpatient (CLI) | payer OTHER ==
[2024-05-24 18:53] LABS: ESTIMATED AVERAGE GLUCOSE 114 mg/dL (70-100); HEMOGLOBIN A1c% 5.6 % (4.27-6.07)
== END 2024-05-24 23:59 | disposition home or self-care (01) ==
LOC: LAB.R 08:00
PROVIDERS: ATTEND Family Medicine
DX: E11.69 Type 2 diabetes mellitus with other specified complication (principal)
CPT/HCPCS: 83036